=== PATIENT | male | born 1960 | race Caucasian/White ===

== ENCOUNTER → 2017-06-11 15:54 | Outpatient (CLI) | payer OTHER, SELFPAY ==
[2017-06-11 17:53] LABS: Absolute Lymphocyte Count 2.26 X10^3/ul (0.83-4.51); Absolute Neutrophil Count 2.8 X10^3/uL (2.0-7.7); Basophil# 0.05 X10^3/uL; Basophil% 0.8 % (0-1); Eosinophil# 0.36 X10^3/uL; Eosinophils% 5.8 % (0-5); Hematocrit 43.1 % (40-54); Hemoglobin 15.2 g/dl (13.0-16.5); Lymphocyte # 2.26 X10^3/ul (4.0); Lymphocyte % 36.6 % (19-41); Mean Corp Hgb Conc 35.3 g/gl (32-36); Mean Corpuscular Hgb 30.8 pg (27.0-32.0); Mean Corpuscular Volume 87.4 fL (80-94); Monocyte# 0.67 X10^3/uL; Monocyte% 10.9 % (0-10); Neutrophil # 2.81 X10^3/uL (2.7-7.7); Neutrophil % 45.6 % (47-70); Platelet Count 192 K/mm3 (150-450); RBC Distribution Width CV 12.5 % (11.6-14.6); RBC Distribution Width SD 39.4 fl (35.1-43.9); Red Blood Count 4.93 M/mm3 (4.6-6.2); White Blood Count 6.2 K/mm3 (4.4-11.0)
[2017-06-11 18:05] LABS: ALB/GLOB Ratio 1.2 RATIO (0.9-2.4); AST(SGOT) 26 U/L (15-37); Alanine Aminotransfer ALT/SGPT 41 U/L (16-61); Albumin, Serum 3.9 g/dL (3.2-5.0); Alkaline Phosphatase 71 U/L (45-117); Anion Gap 9 (5-15); BUN 23 mg/dL (7-18); BUN/Creat Ratio 19.2 RATIO (10-20); Calcium,Total 8.7 mg/dL (8.5-10.1); Chloride 103 mmol/L (98-107); Cholesterol 137 mg/dL (200); EST Glomerular Filtration Rate 66 mL/min (>60); Est Glom Filt Rate - Afr Amer 80 mL/min (>60); Globulin 3.3 g/dL (2.2-4.2); Glucose 80 mg/dL (74-106); High Density Lipoprotein 35 mg/dL; PSA,Total - Annual Screen 0.32 ng/mL (0.00-4.00); Potassium 3.7 mmol/L (3.5-5.1); Protein, Total 7.2 g/dL (6.4-8.2); Sodium Level 139 mmol/L (136-145); Triglycerides 265 mg/dL; Very Low Density Lipoprotein 53 mg/dL (5-40)
[2017-06-11 18:06] LABS: POSITIVE COUNT NO; POSITIVE DIFFERENTIAL NO; POSITIVE MORPHOLOGY NO
== END ==
PROVIDERS: Family Provider Family Medicine; PCP Family Medicine; Visit Provider Internal Medicine Rheumatology
DX: E78.1 Pure hyperglyceridemia (principal); Z12.5 Encounter for screening for malignant neoplasm of prostate; M05.70 Rheumatoid arthritis with rheumatoid factor of unspecified site without organ or systems involvement; Z79.899 Other long term (current) drug therapy; K76.0 Fatty (change of) liver, not elsewhere classified; I10 Essential (primary) hypertension
CPT/HCPCS: 36415; 80053; 80061; 84153; 85025; G0103

== ENCOUNTER → 2017-09-09 16:10 | Outpatient (CLI) | payer OTHER, SELFPAY ==
--- NOTE | 2017-09-09 16:10 | DT_ITS ---
This patient was seen during an EMR downtime September 07, 2017 - September 14, 2017. This patient may have a combination of paper and electronic documentation or all paper documentation. All documentation is viewable within the e-chart portion of [facility] for each patient visit.
[2017-09-14 12:45] LABS: Absolute Lymphocyte Count 2.09 X10^3/ul (0.83-4.51); Absolute Neutrophil Count 2.9 X10^3/uL (2.0-7.7); Basophil% 0.7 % (0-1); Eosinophils% 4.9 % (0-5); Hematocrit 43.7 % (40-54); Hemoglobin 15.4 g/dl (13.0-16.5); Lymphocyte # 2.09 X10^3/ul (4.0); Lymphocyte % 35.1 % (19-41); Mean Corp Hgb Conc 35.2 g/gl (32-36); Mean Corpuscular Hgb 31.2 pg (27.0-32.0); Mean Corpuscular Volume 88.5 fL (80-94); Mean Platelet Vol. 8.9 fl (6.2-12.0); Monocyte% 9.6 % (0-10); Neutrophil # 2.94 X10^3/uL (2.7-7.7); Neutrophil % 49.4 % (47-70); POSITIVE COUNT NO; POSITIVE DIFFERENTIAL NO; POSITIVE MORPHOLOGY NO; Platelet Count 186 K/mm3 (150-450); RBC Distribution Width CV 12.9 % (11.6-14.6); RBC Distribution Width SD 41.1 fl (35.1-43.9); Red Blood Count 4.94 M/mm3 (4.6-6.2)
[2017-09-14 13:01] LABS: BUN 24 mg/dL (7-18); BUN/Creat Ratio 19.8 RATIO (10-20); Creatinine, Serum 1.21 mg/dL (0.70-1.30); EST Glomerular Filtration Rate 65 mL/min (>60); Est Glom Filt Rate - Afr Amer 79 mL/min (>60); Glucose 88 mg/dL (74-106)
[2017-09-14 13:02] LABS: ALB/GLOB Ratio 1.1 RATIO (0.9-2.4); AST(SGOT) 30 U/L (15-37); Alanine Aminotransfer ALT/SGPT 44 U/L (16-61); Albumin, Serum 4.1 g/dL (3.2-5.0); Alkaline Phosphatase 74 U/L (45-117); Anion Gap 10 (5-15); Calcium,Total 8.7 mg/dL (8.5-10.1); Chloride 108 mmol/L (98-107); Globulin 3.6 g/dL (2.2-4.2); Potassium 3.7 mmol/L (3.5-5.1); Protein, Total 7.7 g/dL (6.4-8.2); Sodium Level 142 mmol/L (136-145)
== END ==
PROVIDERS: Family Provider Family Medicine; PCP Family Medicine; Visit Provider Internal Medicine Rheumatology
DX: M05.70 Rheumatoid arthritis with rheumatoid factor of unspecified site without organ or systems involvement (principal); Z79.899 Other long term (current) drug therapy; K76.0 Fatty (change of) liver, not elsewhere classified; I10 Essential (primary) hypertension
CPT/HCPCS: 36415; 80053; 85025

== ENCOUNTER → 2017-12-16 15:41 | Outpatient (CLI) | payer OTHER, SELFPAY ==
[2017-12-16 17:30] LABS: Absolute Lymphocyte Count 1.51 X10^3/ul (0.83-4.51); Absolute Neutrophil Count 1.9 X10^3/uL (2.0-7.7); Basophil# 0.04 X10^3/uL; Eosinophil# 0.21 X10^3/uL; Hematocrit 41.3 % (40-54); Hemoglobin 14.5 g/dl (13.0-16.5); Lymphocyte # 1.51 X10^3/ul (4.0); Lymphocyte % 35.9 % (19-41); Mean Corp Hgb Conc 35.1 g/gl (32-36); Mean Corpuscular Hgb 31.4 pg (27.0-32.0); Mean Corpuscular Volume 89.4 fL (80-94); Mean Platelet Vol. 8.7 fl (6.2-12.0); Monocyte# 0.54 X10^3/uL; Monocyte% 12.8 % (0-10); Neutrophil # 1.89 X10^3/uL (2.7-7.7); Neutrophil % 44.8 % (47-70); Platelet Count 179 K/mm3 (150-450); RBC Distribution Width CV 12.8 % (11.6-14.6); RBC Distribution Width SD 41.4 fl (35.1-43.9); Red Blood Count 4.62 M/mm3 (4.6-6.2); White Blood Count 4.2 K/mm3 (4.4-11.0)
[2017-12-16 17:31] LABS: POSITIVE COUNT NO; POSITIVE DIFFERENTIAL NO; POSITIVE MORPHOLOGY NO
[2017-12-16 18:14] LABS: ALB/GLOB Ratio 1.1 RATIO (0.9-2.4); AST(SGOT) 26 U/L (15-37); Alanine Aminotransfer ALT/SGPT 45 U/L (16-61); Albumin, Serum 3.7 g/dL (3.2-5.0); Alkaline Phosphatase 73 U/L (45-117); Anion Gap 8 (5-15); BUN 25 mg/dL (7-18); BUN/Creat Ratio 21.9 RATIO (10-20); Calcium,Total 8.8 mg/dL (8.5-10.1); Chloride 108 mmol/L (98-107); Creatinine, Serum 1.14 mg/dL (0.70-1.30); EST Glomerular Filtration Rate 70 mL/min (>60); Est Glom Filt Rate - Afr Amer 85 mL/min (>60); Globulin 3.5 g/dL (2.2-4.2); Glucose 94 mg/dL (74-106); Potassium 3.8 mmol/L (3.5-5.1); Protein, Total 7.2 g/dL (6.4-8.2); Sodium Level 143 mmol/L (136-145)
== END ==
PROVIDERS: Family Provider Family Medicine; PCP Family Medicine; Visit Provider Internal Medicine Rheumatology
DX: M05.70 Rheumatoid arthritis with rheumatoid factor of unspecified site without organ or systems involvement (principal); K76.0 Fatty (change of) liver, not elsewhere classified; I10 Essential (primary) hypertension; Z79.899 Other long term (current) drug therapy
CPT/HCPCS: 36415; 80053; 85025

== ENCOUNTER → 2018-03-01 12:53 | Outpatient (CLI) | payer OTHER, SELFPAY ==
[2018-03-01 14:23] LABS: Absolute Lymphocyte Count 1.87 X10^3/ul (0.83-4.51); Absolute Neutrophil Count 3.1 X10^3/uL (2.0-7.7); Basophil# 0.05 X10^3/uL; Basophil% 0.9 % (0-1); Eosinophils% 5.1 % (0-5); Hematocrit 44.8 % (40-54); Hemoglobin 15.8 g/dl (13.0-16.5); Lymphocyte # 1.87 X10^3/ul (4.0); Mean Corp Hgb Conc 35.3 g/gl (32-36); Mean Corpuscular Hgb 31.1 pg (27.0-32.0); Mean Corpuscular Volume 88.2 fL (80-94); Mean Platelet Vol. 9.2 fl (6.2-12.0); Monocyte# 0.52 X10^3/uL; Monocyte% 8.9 % (0-10); Neutrophil # 3.07 X10^3/uL (2.7-7.7); Neutrophil % 52.6 % (47-70); Platelet Count 194 K/mm3 (150-450); RBC Distribution Width CV 12.8 % (11.6-14.6); RBC Distribution Width SD 40.9 fl (35.1-43.9); Red Blood Count 5.08 M/mm3 (4.6-6.2); White Blood Count 5.8 K/mm3 (4.4-11.0)
[2018-03-01 14:29] LABS: POSITIVE COUNT NO; POSITIVE DIFFERENTIAL NO; POSITIVE MORPHOLOGY NO
[2018-03-01 14:46] LABS: ALB/GLOB Ratio 1.1 RATIO (0.9-2.4); AST(SGOT) 28 U/L (15-37); Alanine Aminotransfer ALT/SGPT 49 U/L (16-61); Albumin, Serum 3.8 g/dL (3.2-5.0); Alkaline Phosphatase 76 U/L (45-117); Anion Gap 11 (5-15); BUN 19 mg/dL (7-18); BUN/Creat Ratio 17.4 RATIO (10-20); Calcium,Total 8.9 mg/dL (8.5-10.1); Chloride 106 mmol/L (98-107); Creatinine, Serum 1.09 mg/dL (0.70-1.30); EST Glomerular Filtration Rate 74 mL/min (>60); Est Glom Filt Rate - Afr Amer 89 mL/min (>60); Globulin 3.5 g/dL (2.2-4.2); Glucose 88 mg/dL (74-106); Potassium 4.3 mmol/L (3.5-5.1); Protein, Total 7.3 g/dL (6.4-8.2); Sodium Level 142 mmol/L (136-145)
== END ==
PROVIDERS: Family Provider Family Medicine; PCP Family Medicine; Referring Provider Internal Medicine Rheumatology; Visit Provider Internal Medicine Rheumatology
DX: M05.70 Rheumatoid arthritis with rheumatoid factor of unspecified site without organ or systems involvement (principal); Z79.899 Other long term (current) drug therapy; K76.0 Fatty (change of) liver, not elsewhere classified; I10 Essential (primary) hypertension
CPT/HCPCS: 36415; 80053; 85025

== ENCOUNTER → 2018-04-29 16:40 | Outpatient (CLI) | payer OTHER, SELFPAY ==
[2018-04-29 17:39] LABS: Absolute Neutrophil Count 2.6 X10^3/uL (2.0-7.7); Basophil# 0.04 X10^3/uL; Basophil% 0.8 % (0-1); Eosinophil# 0.26 X10^3/uL; Eosinophils% 5.1 % (0-5); Hematocrit 43.6 % (40-54); Hemoglobin 15.5 g/dl (13.0-16.5); Lymphocyte % 29.7 % (19-41); Mean Corp Hgb Conc 35.6 g/gl (32-36); Mean Corpuscular Hgb 31.1 pg (27.0-32.0); Mean Corpuscular Volume 87.4 fL (80-94); Mean Platelet Vol. 9.3 fl (6.2-12.0); Monocyte# 0.66 X10^3/uL; Monocyte% 13.1 % (0-10); Neutrophil # 2.58 X10^3/uL (2.7-7.7); Neutrophil % 51.1 % (47-70); Platelet Count 179 K/mm3 (150-450); RBC Distribution Width CV 12.7 % (11.6-14.6); RBC Distribution Width SD 39.7 fl (35.1-43.9); Red Blood Count 4.99 M/mm3 (4.6-6.2); White Blood Count 5.1 K/mm3 (4.4-11.0)
[2018-04-29 17:44] LABS: POSITIVE COUNT NO; POSITIVE DIFFERENTIAL NO; POSITIVE MORPHOLOGY NO
[2018-04-29 19:47] LABS: ALB/GLOB Ratio 1.3 RATIO (0.9-2.4); AST(SGOT) 31 U/L (15-37); Alanine Aminotransfer ALT/SGPT 47 U/L (16-61); Albumin, Serum 4.1 g/dL (3.2-5.0); Alkaline Phosphatase 75 U/L (45-117); Anion Gap 11 (5-15); BUN 22 mg/dL (7-18); BUN/Creat Ratio 18.2 RATIO (10-20); CRP < 2.90 mg/L (0.0-3.0); Calcium,Total 9.1 mg/dL (8.5-10.1); Chloride 108 mmol/L (98-107); Creatinine, Serum 1.21 mg/dL (0.70-1.30); EST Glomerular Filtration Rate 65 mL/min (>60); Est Glom Filt Rate - Afr Amer 79 mL/min (>60); Globulin 3.2 g/dL (2.2-4.2); Glucose 88 mg/dL (74-106); Lipase 148 U/L (73-393); Potassium 3.8 mmol/L (3.5-5.1); Protein, Total 7.3 g/dL (6.4-8.2); Sodium Level 142 mmol/L (136-145)
== END ==
PROVIDERS: Family Provider Family Medicine; PCP Family Medicine; Visit Provider Family Medicine
DX: K29.50 Unspecified chronic gastritis without bleeding (principal)
CPT/HCPCS: 36415; 80053; 83690; 84443; 85025; 86140

== ENCOUNTER → 2018-05-05 08:40 | Outpatient (CLI) | payer OTHER, SELFPAY ==
--- NOTE | 2018-05-05 08:45 | US_ITS ---
STUDY: ABDOMINAL ULTRASOUND - RIGHT UPPER QUADRANT REASON FOR VISIT: Male, 58 years old. Epigastric and right upper quadrant pain x4 months TECHNIQUE: Ultrasound evaluation of the right upper quadrant was performed with real-time and static webb-scale imaging. TECHNICAL QUALITY: Adequate. COMPARISON: Prior study of 10/27/2015 FINDINGS: Liver: The liver measures 18.6 cm. There is increased echogenicity consistent with fatty infiltration. The bile ducts are within normal limits. There is hepatic color flow. The direction of portal flow is hepatopetal. There is no demonstrated mass lesion. Gallbladder: The patient is status post cholecystectomy. Common Bile Duct (C.B.D.): The common bile duct measures 6.9 mm. Pancreas: Normal size of the head, body and tail of the pancreas. There is increased echogenicity of the pancreas. There is no demonstrated pancreatic mass or cyst. Right Kidney: Normal size of the right kidney. The right kidney measures 12.4 x 5.0 x 6.4 cm. Normal renal cortex. The right cortex measures 1.8 cm. There is a right renal cyst measuring 2.8 x 2.5 x 2.1 cm. There is an ovoid mid pole cortical structure measuring 3.6 x 3.4 x 4.0 cm which may represent hypertrophic, but can versus mass. There is no right hydronephrosis. There may be mild gaseous distention of several loops of bowel in the region of the pancreas and proximal aorta. US/Abdomen Limited IMPRESSION: The liver is generous in size. There is increased echogenicity suggestive of steatosis. Status post cholecystectomy. Right renal cyst measuring 2.8 x 2.5 x 2.1 cm. There is an ovoid mid pole structure measuring 3.6 x 3.4 x 4.0 cm consistent with mass versus prominent column of retained. Three-phase renal CT or MRI is recommended for further evaluation of this finding. There may be mild gaseous distention of several loops of bowel in the region of the pancreas and proximal aorta. Electronically Signed: Faraz Ba MD at 22:33 EST , Service support ,
== END ==
PROVIDERS: Family Provider Family Medicine; PCP Family Medicine; Referring Provider Family Medicine; Visit Provider Family Medicine
DX: R10.13 Epigastric pain (principal)
CPT/HCPCS: 76705

== ENCOUNTER → 2018-05-10 14:42 | Outpatient (CLI) | payer OTHER, SELFPAY ==
[2018-05-06 14:32] VITALS: BMI 31.8
--- NOTE | 2018-05-10 14:44 | CT_ITS ---
HISTORY: ABD PAIN X 4 MONTHS, CHOLECYSTECTOMY, HERNIA REPAIR TECHNIQUE: Helically acquired images were obtained of the abdomen and pelvis following IV contrast. A radiation dose optimization technique was used for this scan. IV Contrast dosage and agent: 100 cc Isovue 300 contrast Oral contrast: None. COMPARISON: Abdominal ultrasound 05/05/2018 and CTA abdomen 10/27/2015 FINDINGS: The midline retroperitoneum and mesentery shows a bulky soft tissue mass which measures approximately 19 cm in craniocaudal dimension and 10 x 11.7 cm in AP and transverse dimensions. The mass encases the celiac and SMA arteries and encases the root of the mesentery with anterior extension to the transverse mesocolon. The transverse colon shows no definite intrinsic mass. The mass abuts the head and neck regions of the pancreas. Pancreatic invasion by tumor is not excluded. The jejunum shows apparent multifocal mural thickening without bowel dilatation or obstruction. The distal small bowel including the terminal ileum appears normal. Lower thorax: Minor dependent atelectasis, not unusual. No pleural effusion. Cholecystectomy. No biliary dilatation. Mild fatty infiltration of the liver with normal hepatic size. Normal spleen. Both kidneys are normal in position. Bilateral renal excretion of contrast without evidence of hydronephrosis or suspicious renal lesion. Bilateral benign-appearing renal cysts. Adrenal glands are not enlarged. Abdominal aorta is normal caliber. IVC is patent. No ascites. GI tract: No obstruction. As above, multifocal mural thickening of the jejunum is suggested. Diverticulosis coli. Pelvis: The urinary bladder is poorly distended. The pelvis shows no free fluid or lymphadenopathy. Fat-containing left inguinal hernia, unchanged. Central prostatic calcifications. Bones: No acute osseous abnormality. T10 level benign vertebral hemangioma. CT/Abdomen/Pelvis WITH Contrast IMPRESSION: 1. Bulky retroperitoneal and midline mesenteric mass measuring up to 19 cm in length. Possible lymphoma and CT-guided biopsy is recommended. 2. Pancreatic invasion by tumor is possible and primary pancreatic tumor is considered less likely. 3. No bowel obstruction. 4. Chronic changes, as above. Individualized dose optimization techniques were used for this CT. at 0505 Reported and signed by: Rolando Pederosn MD Electronically Signed: Rolando Pederson, at 5:03 EST Tel , Service support ,
== END ==
PROVIDERS: Family Provider Family Medicine; PCP Family Medicine; Referring Provider Surgery; Visit Provider Surgery
DX: R10.9 Unspecified abdominal pain (principal)
CPT/HCPCS: 74177; Q9967

== ENCOUNTER 2018-05-13 05:52 | Day surgery (SDC) | payer OTHER, SELFPAY ==
[2018-05-06 14:32] VITALS: BMI 31.8
[2018-05-13] VITALS (7 sets, daily range): BP systolic 110–129; BP diastolic 78–88; PULSE 58–62; RESP 16–18; TEMP 36.2–36.8; O2SAT 94–97; BMI 31.8
--- NOTE | 2018-05-13 | IMM_PTH ---
PATIENT: CAROLYN GOVEA LOC: EN U#:[id number] AGE/SX: 58/M ROOM: RE05/13/[address]: Dr. Diallo Baires MD : 1960 BED: DIS: 05/13/2018 SPEC #: [id number] RECD: 05/14/18 09:05 STATUS: OTTO LUIS #: [id number] BRITTANEY: 05/13/18 00:[address]: Diallo Baires DEPT: IMMUNOHISTOCHEMISTRY RECD BY: Berna Clark ENTERED: 05/14/18 09:05 SP TYPE: IMMUNO OTHR DR: Dr. Estrada Queen MD Tissues: A - Stomach, NOS Procedures: H Pylori (initial) PHYSICIAN & INSTITUTION [place] [id number] SPECIMEN INFORMATION: Tissue Source: A - Gastric antrum biopsy Clinical Info: Epigastric pain, RLQ pain, diarrhea Specimen Number: [id number] CPT code: 32251 METHODOLOGY: Deparaffinized sections of prefer/formalin-fixed tissue or PAP/DQ stained slides are incubated with monoclonal/polyclonal antibodies/oligonucleotide probes. Localization is made via biotin free immunoperoxidase method. Appropriate controls are performed and reacted as expected. Results on target cell population are indicated in the following table: RESULTS: ANTIBODY / CLONE RESULT Block A H Pylori (polyclonal) negative These tests were developed and their performance characteristics determined by [facility]. They may not have been cleared or approved by the U.S. Food and Drug Administration. The FDA has determined that such clearance or approval is not necessary. INTERPRETATION: A. Gastric antrum, biopsy: Negative for Helicobacter pylori organisms. SJ:jovanny 05/14/18
--- NOTE | 2018-05-13 07:00 | GASB_PTH ---
PATIENT: CAROLYN GOVEA LOC: EN U#:[id number] AGE/SX: 58/M ROOM: RE05/13/[address]: Dr. Diallo Baires MD : 1960 BED: DIS: 05/13/2018 SPEC #: [id number] RECD: 05/13/18 08:00 STATUS: OTTO LUIS #: [id number] BRITTANEY: 05/13/18 07:[address]: Diallo Baires DEPT: SURGICAL PATHOLOGY RECD BY: Kaden Santana ENTERED: 05/13/18 10:21 SP TYPE: Gastric Bx OTHR DR: Dr. Estrada Queen MD Tissues: A - Gastric mucous membrane B - Gastric mucous membrane C - Sigmoid colon biopsy Procedures: Special Stain Group II Surgery Specimen Level IV Alcian Blue/PAS (control) HEADER OPERATION: Colonoscopy, EGD ([facility] [place]) PRE-OP DIAGNOSIS: Epigastric pain, RLQ pain, diarrhea TISSUE SUBMITTED: A - Biopsy gastric antrum, H. pylori and path, B - Biopsy GE junction, C - Polyp sigmoid colon 35 cm MICROSCOPIC DIAGNOSIS A. Gastric antrum, biopsy: Mild gastritis. See microscopic description and comment. B. GE junction, biopsy: Fragments of gastroesophageal mucosa with focal intestinal metaplasia (goblet cell metaplasia), consistent with Meadows's esophagus. Focal chronic inflammation and changes consistent with gastroesophageal reflux disease. Negative for dysplasia. See comment. C. Polyp sigmoid colon, at 35 cm, biopsy: Tubular adenoma. SJ:jovanny 05/14/18 COMMENT A. The results of immunohistochemistry for Helicobacter pylori will be reported separately ([id number]). B. Alcian blue/PAS stain with matched control is used in the evaluation of the specimen. MICROSCOPIC DESCRIPTION Slides are reviewed. A. The specimen shows fragments of gastric mucosa with chronic inflammatory cell infiltrates in the lamina propria consisting of lymphocytes and plasma cells, consistent with mild chronic gastritis. GROSS DESCRIPTION A - Received in fixative is one container labeled with the patient's name and designated biopsy gastric antrum. The specimen consists of two irregular fragments of light spivey soft tissue that in aggregate measure 0.5 x 0.3 x 0.1 cm. The specimen is totally submitted in one cassette. B - Received in fixative is one container labeled with the patient's name and designated biopsy GE junction. The specimen consists of multiple irregular fragments of light spivey soft tissue that in aggregate measure 0.5 x 0.5 x 0.1 cm. The specimen is totally submitted in one cassette. C - Received in fixative is one container labeled with the patient's name and designated polyp sigmoid colon 35 cm. The specimen consists of one irregular fragment of light spivey soft tissue that measures 0.3 x 0.3 x 0.2 cm. The specimen is totally submitted in one cassette. / SJ:rg 05/13/18 TC:1 CPT: 38394 x3, 65012
--- NOTE | 2018-05-13 07:42 | OP.ENDO_ITS ---
Patient Name: Juan José Valencia Procedure Date: 05/13/2018 6:59 AM Date of : 1960 Age: 58 Procedure: Upper GI endoscopy Indications: Epigastric abdominal pain, Suspected esophageal reflux Providers: Diallo Baires MD Medicines: Monitored Anesthesia Care Patient Profile: This is a 58 year old male. Refer to note in patient chart for documentation of history and physical. Complications: No immediate complications. Estimated blood loss: Minimal. Procedure: Pre-Anesthesia Assessment: - Prior to the procedure, a History and Physical was performed, and patient medications and allergies were reviewed. The patient's tolerance of previous anesthesia was also reviewed. The risks and benefits of the procedure and the sedation options and risks were discussed with the patient. All questions were answered, and informed consent was obtained. Prior Anticoagulants: The patient has taken no previous anticoagulant or antiplatelet agents. After reviewing the risks and benefits, the patient was deemed in satisfactory condition to undergo the procedure. After obtaining informed consent, the endoscope was passed under direct vision. Throughout the procedure, the patient's blood pressure, pulse, and oxygen saturations were monitored continuously. The gastroscope was introduced through the mouth, and advanced to the fourth part of duodenum. The upper GI endoscopy was accomplished without difficulty. The patient tolerated the procedure well. Scope In: 7:12:44 AM Scope Out: 7:19:43 AM Total Procedure Duration Time 0 hours 6 minutes 59 seconds Findings: Esophagitis with no bleeding was found. Biopsies were taken with a cold forceps for histology. The stomach was normal. The examined duodenum was normal. The exam was otherwise without abnormality. Biopsies were taken with a cold forceps in the gastric antrum for Helicobacter pylori testing. Impression: - Esophagitis. Biopsied. - Normal stomach. - Normal examined duodenum. - The examination was otherwise normal. Recommendation: - Discharge patient to home. - Resume previous diet. - Continue present medications. Procedure Code(s): --- Professional --- 98072, Esophagogastroduodenoscopy, flexible, transoral; with biopsy, single or multiple Diagnosis Code(s): --- Professional --- K20.9, Esophagitis, unspecified R10.13, Epigastric pain CPT copyright 2017 [employer]. All rights reserved. The codes documented in this report are preliminary and upon surgical coder review may be revised to meet current compliance requirements. Diallo Baires MD 05/13/2018 7:41:43 AM This report has been signed electronically. Number of Addenda: 0 Note Initiated On: 05/13/2018 6:59 AM
--- NOTE | 2018-05-13 07:44 | OP.ENDO_ITS ---
Patient Name: Juan José Valencia Procedure Date: 05/13/2018 7:20 AM Date of : 1960 Age: 58 Procedure: Colonoscopy Indications: Abdominal pain in the right lower quadrant, Clinically significant diarrhea of unexplained origin Providers: Diallo Baires MD Medicines: Monitored Anesthesia Care Patient Profile: This is a 58 year old male. Refer to note in patient chart for documentation of history and physical. Last Colonoscopy: none. The patient's first colonoscopy is today. Complications: No immediate complications. Estimated blood loss: Minimal. Procedure: Pre-Anesthesia Assessment: - Prior to the procedure, a History and Physical was performed, and patient medications and allergies were reviewed. The patient's tolerance of previous anesthesia was also reviewed. The risks and benefits of the procedure and the sedation options and risks were discussed with the patient. All questions were answered, and informed consent was obtained. Prior Anticoagulants: The patient has taken no previous anticoagulant or antiplatelet agents. After reviewing the risks and benefits, the patient was deemed in satisfactory condition to undergo the procedure. After I obtained informed consent, the scope was passed under direct vision. Throughout the procedure, the patient's blood pressure, pulse, and oxygen saturations were monitored continuously. The Colonoscope was introduced through the anus and advanced to the cecum, identified by appendiceal orifice and ileocecal valve. The colonoscopy was performed without difficulty. The patient tolerated the procedure well. The quality of the bowel preparation was good. Scope In: 7:21:56 AM Scope Withdrawal Time 0 hours 11 minutes 13 seconds Scope Out: 7:36:54 AM Total Procedure Duration Time 0 hours 14 minutes 58 seconds Findings: A polyp was found in the sigmoid colon at 35 cm. The polyp was removed with a hot snare. Resection and retrieval were complete. The exam was otherwise without abnormality on direct and retroflexion views. Impression: - One polyp in the sigmoid colon, removed with a hot snare. Resected and retrieved. - The examination was otherwise normal on direct and retroflexion views. Recommendation: - Discharge patient to home. - Resume previous diet. - Continue present medications. - Physician's office will call you with pathology results and recommendations for when to repeat colonoscopy. - Repeat colonoscopy date to be determined after pending pathology results are reviewed for surveillance based on pathology results. Procedure Code(s): --- Professional --- 77612, Colonoscopy, flexible; with removal of tumor(s), polyp(s), or other lesion(s) by snare technique Diagnosis Code(s): --- Professional --- D12.5, Benign neoplasm of sigmoid colon R10.31, Right lower quadrant pain R19.7, Diarrhea, unspecified CPT copyright 2017 [employer]. All rights reserved. The codes documented in this report are preliminary and upon fish net stringer review may be revised to meet current compliance requirements. Diallo Baires MD 05/13/2018 7:43:42 AM This report has been signed electronically. Number of Addenda: 0 Note Initiated On: 05/13/2018 7:20 AM
== END 2018-05-13 08:18 | disposition home or self-care (01) ==
LOC: EN 05:53 → AC 05:53
PROVIDERS: Family Provider Family Medicine; PCP Family Medicine; Referring Provider Surgery; Visit Provider Surgery
PROC: 0DJD8ZZ Inspection of Lower Intestinal Tract, Via Natural or Artificial Opening Endoscopic (ICD-10-PCS; CPT 45378; principal; 2018-05-13 06:55)
DX: K20.9 Esophagitis, unspecified (principal); D12.5 Benign neoplasm of sigmoid colon; K29.70 Gastritis, unspecified, without bleeding; R10.13 Epigastric pain; Z87.891 Personal history of nicotine dependence; N28.89 Other specified disorders of kidney and ureter; R19.7 Diarrhea, unspecified
CPT/HCPCS: 43239; 45385; 88305; 88313; 88342; J7120

== ENCOUNTER 2018-05-19 05:56 | Day surgery (SDC) | payer OTHER, SELFPAY ==
[2018-05-06 14:32] VITALS: BMI 31.8
[2018-05-13 06:08] VITALS: BMI 31.8
[2018-05-19] VITALS (7 sets, daily range): BP systolic 117–157; BP diastolic 61–92; PULSE 59–67; RESP 16; TEMP 36.3–36.8; O2SAT 93–97; BMI 32.5
--- NOTE | 2018-05-19 | MASS_PTH ---
PATIENT: CAROLYN GOVEA LOC: [facility] [place] U#:[id number] AGE/SX: 58/M ROOM: RE05/19/[address]: Dr. Diallo Baires MD : 1960 BED: DIS: 05/19/2018 SPEC #: [id number] RECD: 05/19/18 11:01 STATUS: OTTO RECandy #: [id number] BRITTANEY: 05/19/18 00:[address]: Diallo Baires DEPT: SURGICAL PATHOLOGY RECD BY: Berna Clark ENTERED: 05/19/18 12:25 SP TYPE: Mass OTHR DR: Dr. Estrada Queen MD Tissues: A - Mesentery, NOS B - Mesentery, NOS Procedures: Frozen Section (charge) Surgery Specimen Level IV HEADER OPERATION: Laparoscopic mesenteric biopsy PRE-OP DIAGNOSIS: Mesenteric mass TISSUE SUBMITTED: A - Mesenteric biopsy for FS at 1056, B - Additional mesenteric biopsy tissue for FS at 104 FROZEN SECTION DIAGNOSIS A. Mesenteric mass, biopsy: Lymphoid tissue present. AM: 05/19/18 Case has been reviewed in consultation with Dr. Quinn who concurs with the above diagnosis. IDC:SJ MICROSCOPIC DIAGNOSIS A. Mesenteric mass, biopsy: Consistent with low-grade B-cell lymphoma, favor follicular lymphoma, grade 1. B. Mesenteric mass, additional biopsy: Consistent with low-grade B-cell lymphoma, favor follicular lymphoma, grade 1. AM: 05/24/18 COMMENT Immunohistochemistry ([id number]) shows a low-grade B-cell proliferation that is positive for CD20, CD79a, BCL-2, BCL-6 and CD10. Flow cytometry analysis reveals two clonal populations suggestive of B-cell lymphoma that are biclonal with partial CD10 expression. The complete flow cytometry analysis report is viewable in patient's EMR. Case has been reviewed in consultation with Dr. Quinn who concurs with the above diagnosis. IDC:SJ MICROSCOPIC DESCRIPTION Slides are reviewed. GROSS DESCRIPTION A - Received fresh for frozen section consultation labeled with the patient's name is a specimen designated mesenteric mass biopsy. The specimen consists of two irregular fragments of pink-spivey soft tissue that in aggregate measure 0.5 x 0.5 x 0.1 cm. Approximately half of the specimen is submitted for frozen section consultation in one block. The remainder of the specimen is combined with portions of specimen B and submitted for flow cytometry analysis. / AM:jovanny 05/19/18 B - Received fresh for OR consultation labeled with the patient's name is a specimen designated mesenteric mass biopsy. The specimen consists of multiple irregular fragments of pink-spivey soft tissue that in aggregate measure 1 x 0.5 x 0.1 cm. Television Serv[employer] touch prep smears are prepared. Portions of the tissue are submitted for flow cytometry analysis. The remainder of the tissue is submitted for permanent sections in one cassette. / AM:jovanny 05/19/18 TC:0 CPT: 29540 x2, 89730
--- NOTE | 2018-05-19 | IMM_PTH ---
PATIENT: CAROLYN GOVEA [place] [facility] [place][id number] AGE/SX: 58/M ROOM: RE05/19/[address]: Dr. Diallo Baires MD : 1960 BED: DIS: 05/19/2018 SPEC #: [id number] RECD: 05/20/18 12:26 STATUS: OTTO REQ #: [id number] BRITTANEY: 05/19/18 00:[address]: Diallo Baires DEPT: IMMUNOHISTOCHEMISTRY RECD BY: Berna Clark ENTERED: 05/20/18 12:30 SP TYPE: IMMUNO OTHR DR: Dr. Estrada Queen MD Tissues: B - Mesentery, NOS Procedures: BCL-2 (add) BCL-6 (add) CD10 (add) CD138 (add) CD15 (add) CD20 (add) CD23 (add) CD3 (add) CD30 (add) CD43 (add) CD45 (add) CD5 (add) CD79A (add) CYCLIN (add) KAPPA (add) KI-67 (add) LAMBDA (add) MUM1 (add) C-MYC (add) Pankeratin (initial) PHYSICIAN & [place] [id number] SPECIMEN INFORMATION: Tissue Source: B - Additional mesenteric biopsy tissue Clinical Info: Mesenteric mass Specimen Number: [id number] CPT code: 81412, 09899 x19 METHODOLOGY: Deparaffinized sections of prefer/formalin-fixed tissue or PAP/DQ stained slides are incubated with monoclonal/polyclonal antibodies/oligonucleotide probes. Localization is made via biotin free immunoperoxidase method. Appropriate controls are performed and reacted as expected. Results on target cell population are indicated in the following table: RESULTS: ANTIBODY / CLONE RESULT Block B AE1-3 (AE1/AE3/PCK26) negative CD3 (PS1) negative CD5 (SP10) negative CD10 (56C6) positive CD15 (MMA) negative CD20 (L26) positive CD23 (1B12) negative CD30 (George-H2) negative CD43 (L60) negative CD45 (RP2/18) positive CD79a (11E3) positive CD138 (B-A38) negative BCL-2 (bcl-2/100/D5) positive BCL-6 (RG399O/A8) positive Cyclin D1/BCL-1 (SP4) negative MUM1 (MRQ-43) negative C-MYC (Y69) negative [place] (polyclonal) negative Lambda (polyclonal) negative Ki-67 (30-9) positive, low These tests were developed and their performance characteristics determined by [facility]. They may not have been cleared or approved by the U.S. Food and Drug Administration. The FDA has determined that such clearance or approval is not necessary. INTERPRETATION: B. Additional mesenteric tissue, biopsy: Consistent with low-grade B-cell lymphoma, favor follicular lymphoma, grade I. AM:jovanny 05/24/18 Case has been reviewed in consultation with Dr. Quinn who concurs with the above diagnosis. IDC:SJ
[2018-05-19] MEDS: Cefazolin 2 GM in 0.9% Normal Saline 100 ML IV (10:25)
--- NOTE | 2018-05-19 11:20 | PCM.OPRPT ---
Problem List (1) Mesenteric mass Status: Acute Report of Operation Date of Procedure: 05/19/18 Pre-Operative Diagnosis: Mesenteric mass Post-Operative Diagnosis: Mesenteric mass Surgery/Procedure Performed:: Exploratory laparoscopy with biopsy of mesenteric mass Specimen's removed: Biopsy specimens for mesenteric mass Description of Procedure: Patient was brought back to the operating room and general anesthesia was induced. The abdomen was prepped and draped in usual sterile fashion. A 5 mm port was placed in the right lateral abdominal sidewall using Visiport technique. The abdomen was then insufflated to 15 mmHg and inspected for injuries and there were none. Next a 5 mm port was placed in the right lower quadrant under direct visualization. The mass was obvious after the mesentery was reflected superiorly. It was in the small bowel mesentery and there was likely partial obstruction of the small bowel due to this mass. A segment between 2 loops of small bowel that was obvious mesentery was selected and using cautery scissors a small piece was taken. Several small pieces were taken and then a 14-gauge needle was placed into this area and a few core biopsies were taken. These were sent fresh for frozen section. The pathologist called and said that he had enough tissue for flow cytometry as well as permanent. At this time there was a small amount of oozing which was controlled with cautery and then there was no bleeding after this. The abdomen was allowed to desufflate and both incisions were injected with local anesthesia and closed with interrupted 4-0 Monocryl sutures as well as Steri-Strips and bandages. The patient tolerated the procedure well. - Admit VTE Documentation VTE Mechan Device Prophylaxis: SCD's
--- NOTE | 2018-05-19 11:25 | DCINST_ITS ---
- Discharge Diagnoses Current Active Problems: Current Active and Chronic Problems Mesenteric mass (Acute) You will use the following diet at home:: No restrictions Your food should be the consistency of: Regular Discharge Activity: May Shower May shower in (days): 1 Call your doctor if your incision/area has: Continuous Slow Oozing, Sudden Increased Bleeding, Increased Pain/ Swelling, Increased Redness, Foul Smelling Discharge, Swelling at the incision site Call your doctor if you observe: Fever of 101 or Higher Allergies/Adverse Reactions: Allergies No Known Allergies Allergy (Verified 05/17/18 12:59) Medications to take at Discharge Adalimumab [Humira] 40 mg SQ SA 10/27/15 Hydroxychloroquine [Plaquenil] 200 mg PO BID 10/27/15 Leflunomide [Arava] 10 mg PO DAILY 10/27/15 Amlodipine [Norvasc] 5 mg PO DAILY #30 tab 10/28/15 atenolol 25 mg tablet 25 mg PO DAILY 05/06/18 chlorthalidone 25 mg tablet 12.5 mg PO DAILY tab 05/06/18 sucralfate 1 gram tablet 1 g PO QACHS #120 tab 05/06/18 Esomeprazole Mag Trihydrate [Nexium] 40 mg PO DAILY 05/12/18 Hydrocodone/Acetaminophen [[place] 5-325 Tablet] 1 each PO Q6H PRN PRN 4 Days #15 tablet 05/19/18 The following prescriptions were given: Hydrocodone/Acetaminophen [[place] 5-325 Tablet] 1 each PO Q6H PRN PRN 4 Days #15 tablet PRN Reason: Pain Primary Care Physician: Estrada Queen MD [Primary Care Provider] - Test Results: Test results from this visit will be discussed in further detail at your follow- up appointment, if applicable.
== END 2018-05-19 13:03 | disposition home or self-care (01) ==
LOC: SDC 05:57 → AC 05:58
PROVIDERS: Family Provider Family Medicine; PCP Family Medicine; Referring Provider Surgery; Visit Provider Surgery
PROC: (CPT 49320; principal; 2018-05-19 07:15)
DX: R19.00 Intra-abdominal and pelvic swelling, mass and lump, unspecified site (principal); R10.13 Epigastric pain; R10.31 Right lower quadrant pain; I10 Essential (primary) hypertension; M06.9 Rheumatoid arthritis, unspecified; K21.9 Gastro-esophageal reflux disease without esophagitis; Z79.899 Other long term (current) drug therapy; Z87.891 Personal history of nicotine dependence
CPT/HCPCS: 00840; 49321; 88305; 88331; 88341; 88342; J7120; J2405

== ENCOUNTER → 2018-05-26 16:23 | Outpatient (CLI) | payer OTHER, SELFPAY ==
[2018-05-19 07:03] VITALS: BMI 32.5
--- NOTE | 2018-05-26 | IMM_PTH ---
PATIENT: CAROLYN GOVEA LOC: [facility] U#:[id number] AGE/SX: 65/M ROOM: RE05/26/[address]: Dr. Myrtle Reyes MD : 1960 BED: DIS: SPEC #: [id number] RECD: 05/31/18 11:24 STATUS: OTTO REQ #: [id number] BRITTANEY: 05/26/18 00:[address]: Myrtle Reyes DEPT: IMMUNOHISTOCHEMISTRY RECD BY: Berna Clark ENTERED: 05/31/18 11:27 SP TYPE: IMMUNO OTHR DR: Dr. Estrada Queen MD Tissues: A - Bone marrow of iliac crest B - Bone marrow of iliac crest Procedures: BCL-2 (add) BCL-6 (add) CD10 (add) CD20 (add) CD23 (add) CD43 (add) CD45 (add) CD5 (add) CD79A (add) CYCLIN (add) KI-67 (add) MUM1 (add) CD3 (initial) PHYSICIAN & [address] [address] SPECIMEN INFORMATION: Tissue Source: Bone marrow biopsy, A - Core, B - Clot Clinical Info: Follicular B-cell lymphoma Specimen Number: [id number] A & B CPT code: 26839 x2, 80321 x16 METHODOLOGY: Deparaffinized sections of prefer/formalin-fixed tissue or PAP/DQ stained slides are incubated with monoclonal/polyclonal antibodies/oligonucleotide probes. Localization is made via biotin free immunoperoxidase method. Appropriate controls are performed and reacted as expected. Results on target cell population are indicated in the following table: RESULTS: ANTIBODY / CLONE RESULT Block A CD3 (PS1) positive CD5 (SP10) positive CD20 (L26) positive CD45 (RP2/18) positive CD79a (11E3) positive Block B CD3 (PS1) positive CD5 (SP10) positive CD20 (L26) positive CD43 (L60) positive CD45 (RP2/18) positive CD79a (11E3) positive CD10 (56C6) negative CD23 (1B12) negative BCL-2 (bcl-2/100/D5) positive BCL-6 (CI788M/A8) negative Cyclin D1/BCL-1 (SP4) negative MUM1 (MRQ-43) negative Ki-67 (30-9) positive, low These tests were developed and their performance characteristics determined by [facility]. They may not have been cleared or approved by the U.S. Food and Drug Administration. The FDA has determined that such clearance or approval is not necessary. INTERPRETATION: A. Bone marrow core biopsy: Interstitial infiltrates of small lymphocytes are noted, polytypic in nature. B. Bone marrow clot: Lymphoid aggregates are noted, polytypic in nature, favor benign. SJ:jovanny 06/02/18
--- NOTE | 2018-05-26 | BMB_PTH ---
PATIENT: CAROLYN GOVEA LOC: [facility] U#:[id number] AGE/SX: 65/M ROOM: RE05/26/[address]: Dr. Myrtle Reyes MD : 1960 BED: DIS: SPEC #: [id number] RECD: 05/26/18 15:21 STATUS: OTTO REQ #: [id number] BRITTANEY: 05/26/18 00:[address]: yMrtle Reyes DEPT: BONE MARROW RECD BY: Kaden Santana ENTERED: 05/27/18 08:10 SP TYPE: BMB YAQUELIN DR: Dr. Estrada Queen MD Tissues: A - Bone marrow, NOS B - Bone marrow, NOS C - Bone marrow, NOS Procedures: Decalcification bone/plaque Bone Marrow Aspiration Bone Marrow Core Biopsy Iron Stain Bone Marrow HEADER OPERATION: Bone marrow aspiration and biopsy PRE-OP DIAGNOSIS: Follicular B-cell lymphoma TISSUE SUBMITTED: A - Core, B - Clot, C - Smears, and send out (flow) BONE MARROW DIAGNOSIS Bone marrow core, clot and aspirate smears: Normocellular marrow with trilineage hematopoiesis. Negative for granuloma, lymphoma or malignancy. Iron - 4+, rare atypical sideroblasts are noted. Significant increase of ring sideroblasts are not seen. Flow cytometry study from [facility] shows no evidence of B or T-cell lymphoproliferative disorder. SJ:jovanny 06/02/18 COMMENT Clinical correlation and appropriate follow up are necessary. Please make reference to previous specimen ([id number]), mesenteric mass, biopsy with diagnosis of consistent with low-grade B-cell lymphoma, favor follicular lymphoma, grade 1. The bone marrow smears are reviewed along with Dr. Jaimes. This case is discussed with Dr. Reyes on 06/01/18. BONE MARROW STUDY Slides are reviewed. CBC DATE: 05/26/18 WBC 6.13; RBC 5.15; HGB 15.8; HCT 44.4; MCV 85.6; RDW 12.7; PLTS 206,000 Manual differential count: SEGS 57%; LYMPHS 35%; MONOS 3%; EOS 10%; MYELO 1%, META 2% PERIPHERAL SMEAR: Submitted. RBC: Normocytic and normochromic. WBC: Unremarkable. The WBC count is compatible to as reported above. PLTS: Adequate. BONE MARROW ASPIRATE DIFFERENTIAL: 200 cell count. Blasts % (normal 0-2): 0 Promyelocytes % (normal 1-5): 0 Myelocytes and metamyelocytes % (normal 17-41): 20 Bands and Segs % (normal 15-32): 24 Eos % (normal 1-6): 13 Basos % (normal 0-1): 0 Monocytes % (normal 0-4): 0 Erythroid Precursors % (normal 17-35): 32 Lymphocytes % (normal 7-13): 11 Plasma Cells % (normal 0-2): 0 ASPIRATE FINDINGS: Site: Not specified Spicular, Cellular M/E ratio: 1.8 (Normal 1.5-4.0) Megakaryocytes: Present and normal morphology. Erythropoiesis: Normoblastic. Granulopoiesis: Progressive. Mild increase of eosinophils are noted. Comment: Significant increase of lymphocytes is not seen. CORE BIOPSY FINDINGS: Site: Not specified Adequacy: Adequate Cellularity: 50% M/E ratio: Within normal limits. Megakaryocytes: Present and adequate in number. Bony trabeculae: Unremarkable. Granulomas: Absent. Lymphoid aggregate: Absent. Atypical infiltrate: Absent. Comment: Immunohistochemistry ([id number]) shows interstitial infiltrates of small lymphocytes, polytypic in nature. ASPIRATE CLOT FINDINGS: Site: Not specified Marrow particles: Numerous Cellularity: 50% M/E ratio: Within normal limits. Megakaryocytes: Present and adequate in number. Granulomas: Absent. Lymphoid aggregates: Present. Atypical infiltrates: Absent. Comment: Immunohistochemistry ([id number]) shows lymphoid aggregates to be polytypic in nature, favor benign. SPECIAL STAINS WITH MATCHED CONTROLS: Iron: 4+, rare atypical sideroblasts are noted. Significant increase of ring sideroblasts is not seen. Reticulin: No significant increase of reticulin fibers is noted. PAS: Highlights myeloid cells and megakaryocytes. BONE MARROW GROSS A - Received is a container labeled with the patient's name and designated bone marrow. The specimen consists of two elongated fragments of spivey bone measuring 0.3 and 0.8 cm in length and 0.1 cm in diameter. The specimen is totally submitted in one cassette after decalcification. B - Received labeled with the patient's name and designated bone marrow is a specimen that consists of blood clot and submitted for cell block preparation. C - Also received are six unstained and two peripheral stained slides. The unstained slides are submitted for appropriate staining. Also received are two green top tubes which are sent to our reference lab for flow. / SJ:rg 05/27/18 TC:5 CPT: 26056, 90943, 83351 x2, 55556 x3, 06352
== END ==
PROVIDERS: Family Provider Family Medicine; PCP Family Medicine; Referring Provider Internal Medicine Hematology & Oncology; Visit Provider Internal Medicine Hematology & Oncology
DX: C85.10 Unspecified B-cell lymphoma, unspecified site (principal)
CPT/HCPCS: 88305; 88311; 88313; 88341; 88342

== ENCOUNTER → 2018-06-01 16:43 | Outpatient (CLI) | payer OTHER, SELFPAY ==
[2018-05-19 07:03] VITALS: BMI 32.5
--- NOTE | 2018-06-01 16:47 | CT_ITS ---
STUDY: CT CHEST WITH CONTRAST REASON FOR EXAM: Male, 58 years old. Lymphoma. Prior history of smoking. RADIATION DOSAGE (If Supplied By Facility): CTDIvol = ( 12.74 ) mGy, DLP = ( 820.65 ) mGycm TECHNIQUE: Transaxial imaging was performed following intravenous administration of Isovue 300 100CC IV. Individualized dose optimization techniques were used for this CT. COMPARISON: None. FINDINGS: Moderate diffuse emphysematous change of the lungs. Bibasilar atelectasis versus scar formation. No concerning pulmonary nodule. Atelectasis versus infiltrate at the left anterior lung base with subtle air bronchogram. No pleural effusion or pneumothorax. Normal heart and pericardium. Shotty mediastinal and hilar lymph nodes. No axillary lymphadenopathy. Normal hilar regions. Normal enhanced pulmonary arteries. No central pulmonary embolism. Normal aorta arch and descending thoracic aorta. Mild multilevel degenerative change of the spine. Intraosseous hemangioma noted within the T10 vertebral body. Mild diffuse homogeneous hypoattenuation of the liver parenchyma. Confluent lymphadenopathy through the root of the mesentery. Hypoattenuated lesions within bilateral upper renal poles. CT/Chest WITH Contrast IMPRESSION: 1. Moderate diffuse emphysematous change of the lungs with no evidence of acute cardiopulmonary disease. 2. Small region of atelectasis versus consolidative infiltrate at the left anterior lung base. 3. Shotty mediastinal and hilar lymph nodes. 4. Fatty infiltration of the liver. 5. Confluent lymphadenopathy throughout the root of the mesentery, consistent with lymphoma 6. Simple appearing bilateral upper renal pole cyst. Electronically Signed: Kaden Portillo MD at 2:19 EST Tel , Service support ,
== END ==
PROVIDERS: Family Provider Family Medicine; PCP Family Medicine; Referring Provider Internal Medicine Hematology & Oncology; Visit Provider Internal Medicine Hematology & Oncology
DX: C85.90 Non-Hodgkin lymphoma, unspecified, unspecified site (principal); F17.201 Nicotine dependence, unspecified, in remission
CPT/HCPCS: 71260; Q9967

== ENCOUNTER → 2018-12-15 15:48 | Outpatient (CLI) | payer OTHER, SELFPAY ==
[2018-05-19 07:03] VITALS: BMI 32.5
[2018-12-15 17:29] LABS: Absolute Lymphocyte Count 0.45 X10^3/uL (0.83-4.51); Absolute Neutrophil Count 1.5 X10^3/uL (2.0-7.7); Basophil# 0.04 X10^3/uL; Basophil% 1.4 % (0-1); Eosinophil# 0.06 X10^3/uL; Eosinophils% 2.1 % (0-5); Hematocrit 36.4 % (40-54); Hemoglobin 12.7 g/dL (13.0-16.5); Lymphocyte # 0.45 X10^3/ul (4.0); Lymphocyte % 16.1 % (19-41); Mean Corp Hgb Conc 34.9 g/dL (32-36); Mean Corpuscular Hgb 32.7 pg (27.0-32.0); Mean Corpuscular Volume 93.8 fL (80-94); Mean Platelet Vol. 8.6 fl (6.2-12.0); Monocyte# 0.72 X10^3/uL; Monocyte% 25.7 % (0-10); NRBC Flagged by Analyzer 0 % (0-5); Neutrophil % 53.6 % (47-70); POSITIVE DIFFERENTIAL YES; Platelet Count 179 K/mm3 (150-450); RBC Distribution Width SD 47.8 fl (35.1-43.9); Red Blood Count 3.88 M/mm3 (4.6-6.2); White Blood Count 2.8 K/mm3 (4.4-11.0)
[2018-12-15 17:31] LABS: Differential Indicated SCAN CRITERIA MET
[2018-12-15 17:53] LABS: ALB/GLOB Ratio 1.2 RATIO (0.9-2.4); AST(SGOT) 26 U/L (15-37); Alanine Aminotransfer ALT/SGPT 38 U/L (16-61); Albumin, Serum 3.8 g/dL (3.2-5.0); Alkaline Phosphatase 95 U/L (45-117); Anion Gap 8 (5-15); BUN 17 mg/dL (7-18); Calcium,Total 8.6 mg/dL (8.5-10.1); Chloride 109 mmol/L (98-107); Creatinine, Serum 1.31 mg/dL (0.70-1.30); EST Glomerular Filtration Rate 59 mL/min (>60); Est Glom Filt Rate - Afr Amer 72 mL/min (>60); Globulin 3.2 g/dL (2.2-4.2); Glucose 85 mg/dL (74-106); Potassium 3.5 mmol/L (3.5-5.1); Sodium Level 143 mmol/L (136-145)
[2018-12-15 18:26] LABS: Differential Comment SCANNED; Platelet Estimate ADEQUATE (ADEQ); Red Cell Morphology NORM C+C NORMAL (NORM C&C)
[2018-12-16 10:01] LABS: Pathologist Review Reviewed
== END ==
PROVIDERS: Family Provider Family Medicine; PCP Family Medicine; Referring Provider Internal Medicine Rheumatology; Visit Provider Internal Medicine Rheumatology
DX: M05.70 Rheumatoid arthritis with rheumatoid factor of unspecified site without organ or systems involvement (principal); Z79.899 Other long term (current) drug therapy; K76.0 Fatty (change of) liver, not elsewhere classified; I10 Essential (primary) hypertension
CPT/HCPCS: 36415; 80053; 85025

== ENCOUNTER 2019-05-12 10:02 | Emergency (ER) | payer OTHER, SELFPAY ==
[2018-05-19 07:03] VITALS: BMI 32.5
[2019-05-12 10:04] VITALS: BP 153/90; PULSE 77; RESP 18; TEMP 36.6; O2SAT 94; BMI 34.2
--- NOTE | 2019-05-12 10:50 | RAD_ITS ---
STUDY: X-RAY - LEFT WRIST REASON FOR EXAM: Male, 59 years old. FELL ON ICE, PAIN TECHNIQUE: 3 view(s) of the wrist were obtained. COMPARISON: None. FINDINGS: Nondisplaced oblique fracture through the lateral aspect of the distal radial metaphysis extending into the articular surface. Normal radiocarpal articulation. Normal distal radioulnar articulation. Normal carpal bones. Normal carpal articulations. Normal carpometacarpal articulation of the thumb. Normal second through fifth carpometacarpal articulations. Normal visualized metacarpal bones. Soft tissue swelling. RAD/Wrist min 3 Views IMPRESSION: Nondisplaced vertical fracture through the lateral aspect of the distal radial metaphysis extending into the articular surface. Soft tissue swelling. Electronically Signed: Han Rosado, at 11:08 EST , Service support ,
--- NOTE | 2019-05-12 10:55 | RAD_ITS ---
STUDY: X-RAY - RIGHT FOOT CLINICAL: Male, 59 years old. FELL ON ICE, LATERAL MT PAIN TECHNIQUE: 3 view(s) of the foot. COMPARISON: None. FINDINGS: There is an enthesophyte involving the posterior superior calcaneus at the site of insertion of the Achilles tendon. Small plantar spur. Normal visualized subtalar, talonavicular, calcaneocuboid, tarsal and tarsometatarsal articulations. Normal metatarsi. Normal metatarsophalangeal joint of the great toe. Normal tibial and fibular sesamoid bones. Normal interphalangeal joint of the great toe. Normal phalanges of the great toe. Normal second through fifth metatarsophalangeal joints. Normal interphalangeal joints and phalanges of the lesser toes. Mild soft tissue swelling RAD/Foot min 3 Views IMPRESSION: Mild soft tissue swelling and calcaneal spurs. Electronically Signed: Han Rosado, at 11:58 EST , Service support ,
--- NOTE | 2019-05-12 12:04 | ED.DCSUM_ITS ---
History of Present Illness Chief Complaint: Fall Narrative: Patient presenting secondary to mechanical fall at work. Patient reports that he slipped on some ice. He suffered an injury to his left wrist, right fifth toe, and fell on his bottom hurting his back somewhat. No numbness or weakness. No head injuries. No anticoagulant use. Pain is moderate worse with palpation and movement. Review of systems otherwise negative. Past Medical History - Allergies and Home Meds Allergies/Adverse Reactions: Allergies No Known Allergies Allergy (Verified 05/12/19 10:03) Primary Care Physician: Estrada Queen MD [Primary Care Provider] - Past Medical History: - - Hypertension, renal mass Smoking Status: Former smoker - Family History Maternal Family History: Reports: Heart Disease Review of Systems All systems negative except as indicated General: Denies: Chills, Fever, Sweats Eyes: Denies: Visual changes - bilaterally, Diplopia ENT: Denies: Rhinorrhea, Sore throat Cardiovascular: Denies: Chest pain, Palpitations Respiratory: Denies: Dyspnea, Cough, Dyspnea on exertion Gastrointestinal: Denies: Abdominal pain, Nausea, Vomiting, Diarrhea, Melena, Hematochezia Genitourinary: Denies: Dysuria, Hematuria, Frequency Musculoskeletal: Reports: Extremity Pain Skin: Denies: Rash, Wounds Neurological: Denies: Headache, Weakness, Numbness Physical Exam Vital Signs/Narrative: Vital Signs Temp Pulse Resp BP Pulse Ox 05/12/19 10:04 97.9 F 77 18 153/90 H 94 Inital Vital Signs reviewed: Yes General: Well nourished, Well developed, No Acute Distress Head: Normocephalic, Atraumatic Eyes: Perrl, EOMI ENT: Moist mucous membranes, No rhinorrhea Neck: Supple, Nontender Cardiovascular: Regular rate, Regular rhythm, No murmurs Respiratory: No distress, CTA bilaterally, Chest nontender Abdomen: Soft, Nontender, Nondistended, Normal bowel sounds Back: Nontender, Normal Inspection Extremities: - - Examination of the patient's left wrist shows tenderness to palpation over the wrist joint with some predominance over the distal radius, there is some snuffbox tenderness noted. Normal range of motion of the fingers normal capillary refill. No obvious deformity. Examination of the patient's right foot shows ecchymosis of the fifth toe with limited range of motion due to pain. Normal pulses normal capillary refill normal sensation. Skin: Normal color, No rash Neurological: Alert, Oriented x3, Cranial nerves II-XII grossly intact, Normal S trength, Normal Sensation Psychological: Normal affect, Normal Mood Diagnostic/Tx/Re-eval - Medical Decision Making Patient presented for evaluation secondary to a fall. Primary and secondary surveys showed only injuries to the left wrist on the right foot. Radiographs by my personal review of the left wrist show a intra-articular distal radius fracture that is nondisplaced and nonangulated. Personal review of the patient's foot x-ray demonstrates a distal phalanx fracture of the fifth toe. Toes will be bob taped. The wrist will be splinted as noted in the procedure note. Patient will follow-up with orthopedics and workers comp. Procedures - Upper Extremity Splints Upper Extremity Splint: - - AP splint of the wrist was performed. Cotton padding was placed, fiberglass was used for splint material, and then this was held in place with an [place]osta wrap. There was good capillary refill following splint fabrication. Splint Fabrication: Fabricated Location: Left ED Disposition - Plan for ED Patient: Disposition: Home or Assisted Living Diagnosis: Left wrist fracture, Toe fracture, right Instructions: FRACTURE, Wrist [General], FRACTURE, Toe [Closed] Referrals: Tee Fox DO [STAFF PHYSICIAN] - 1 Week
[2019-05-12 12:28] VITALS: BP 142/93; PULSE 75; RESP 18
== END 2019-05-12 12:34 | disposition home or self-care (01) ==
PROVIDERS: Emergency Provider Emergency Medicine; PCP Family Medicine
DX: S52.572A Other intraarticular fracture of lower end of left radius, initial encounter for closed fracture (principal); S92.911A Unspecified fracture of right toe(s), initial encounter for closed fracture; W00.0XXA Fall on same level due to ice and snow, initial encounter; Y99.0 Civilian activity done for income or pay; I10 Essential (primary) hypertension; M77.31 Calcaneal spur, right foot; Z82.49 Family history of ischemic heart disease and other diseases of the circulatory system; Z87.891 Personal history of nicotine dependence
CPT/HCPCS: 29125; 73110; 73630; 99282

== ENCOUNTER → 2019-06-08 15:47 | Outpatient (CLI) | payer OTHER, SELFPAY ==
[2019-05-12 10:04] VITALS: BMI 34.2
[2019-06-08 17:55] LABS: Hematocrit 38.1 % (40-54); Hemoglobin 13.5 g/dL (13.0-16.5); Mean Corp Hgb Conc 35.4 g/dL (32-36); Mean Corpuscular Hgb 32.1 pg (27.0-32.0); Mean Corpuscular Volume 90.5 fL (80-94); POSITIVE COUNT YES; POSITIVE DIFFERENTIAL YES; POSITIVE MORPHOLOGY YES; Platelet Count 216 K/mm3 (150-450); RBC Distribution Width CV 13.5 % (11.6-14.6); RBC Distribution Width SD 43.7 fl (35.1-43.9); Red Blood Count 4.21 M/mm3 (4.6-6.2); White Blood Count 4.2 K/mm3 (4.4-11.0)
[2019-06-08 18:14] LABS: Differential Indicated MANUAL DIFF
[2019-06-08 18:21] LABS: ALB/GLOB Ratio 1.3 RATIO (0.9-2.4); AST(SGOT) 33 U/L (15-37); Alanine Aminotransfer ALT/SGPT 47 U/L (16-61); Alkaline Phosphatase 110 U/L (45-117); Anion Gap 5 (5-15); BUN 17 mg/dL (7-18); BUN/Creat Ratio 15.6 RATIO (10-20); Calcium,Total 8.6 mg/dL (8.5-10.1); Chloride 105 mmol/L (98-107); Creatinine, Serum 1.09 mg/dL (0.70-1.30); EST Glomerular Filtration Rate 73 mL/min (>60); Est Glom Filt Rate - Afr Amer 89 mL/min (>60); Globulin 3.1 g/dL (2.2-4.2); Glucose 96 mg/dL (74-106); Potassium 3.5 mmol/L (3.5-5.1); Protein, Total 7.1 g/dL (6.4-8.2); Sodium Level 137 mmol/L (136-145)
[2019-06-08 18:37] LABS: Basophil 1 % (0-1); Eosinophil 3 % (0-5); Lymphocyte 6 % (19-41); Monocyte 8 % (0-10); Neutrophil-Band 3 % (0-5); Neutrophil-Segmented 79 % (47-70); Total Cells Counted 100 (MANUAL DIFF)
[2019-06-08 18:39] LABS: Absolute Lymphocyte Count 0.25 X10^3/uL (0.83-4.51); Absolute Neutrophil Count 3.4 X10^3/uL (2.0-7.7); Erythrocyte Sedimentation Rate 7 mm/hr (0-20)
[2019-06-08 18:45] LABS: Microalbumin,Random Urine < 5.0 mg/L (NO RANGE EST.)
[2019-06-09 13:12] LABS: Pathologist Review Reviewed
== END ==
PROVIDERS: PCP Family Medicine; Referring Provider Internal Medicine Rheumatology; Visit Provider Internal Medicine Rheumatology
DX: C85.10 Unspecified B-cell lymphoma, unspecified site (principal); I10 Essential (primary) hypertension; M05.70 Rheumatoid arthritis with rheumatoid factor of unspecified site without organ or systems involvement; Z79.899 Other long term (current) drug therapy
CPT/HCPCS: 36415; 80053; 82043; 82570; 85025; 85652

== ENCOUNTER → 2020-03-22 14:43 | Outpatient (CLI) | payer OTHER, SELFPAY | PROVIDERS: PCP Family Medicine; Referring Provider Family Medicine; Visit Provider Family Medicine | DX: B34.9 Viral infection, unspecified (principal) ==

== ENCOUNTER 2020-03-22 14:50 | Inpatient (IN) | payer OTHER, SELFPAY ==
[2020-03-22] VITALS (8 sets, daily range): BP systolic 117–140; BP diastolic 70–104; PULSE 81–102; RESP 16–22; TEMP 37–38.8; O2SAT 91–96; BMI 33.3; BMI 33.4; BMI 32.1
--- NOTE | 2020-03-22 15:28 | EKG12_ITS ---
Test Reason : DYSRHYTHMIA Blood Pressure : / mmHG Vent. Rate : 085 BPM Atrial Rate : 085 BPM P-R Int : 164 ms QRS Dur : 096 ms QT Int : 358 ms P-R-T Axes : 038 -07 032 degrees QTc Int : 426 ms Normal sinus rhythm Normal ECG Confirmed by TULIO STOLL, CHIQUITA ([id number]), scientific editor KARUNA FARIAS ([id number]) on 03/28/2020 9:47:27 A M Referred By: TERA Confirmed By:JABARI ANTUNEZ MD
[2020-03-22] MEDS: 0.9% Normal Saline 1,000 ML 999 ML IV (15:48)
[2020-03-22] MEDS: Acetaminophen 500 MG Tablet 1000 MG PO (15:48)
--- NOTE | 2020-03-22 16:01 | ED.DCSUM_ITS ---
History of Present Illness Chief Complaint: Fever Informant: Patient Narrative: 60-year-old male presents for the evaluation of fever and cough. Patient tells me that he has a history of rheumatoid arthritis and follicular lymphoma grade 1. He is currently on Rituxan. He currently sees Dr. Reyes from oncology. Tells me that last (8 days ago) he began to develop symptoms. He notes fever, cough, headache, myalgias, diarrhea, dyspnea, loss of taste and smell, and sore throat. Tells me had a negative Covid test on Thursday. He was feeling a little bit better that day but today states that his symptoms seem to be worse. He is a former smoker. - Past Medical History (1) Rheumatoid arthritis Status: Chronic Past Medical History - Allergies and Home Meds Allergies/Adverse Reactions: Allergies No Known Allergies Allergy (Verified 05/12/19 10:03) Primary Care Physician: Estrada Queen MD [Primary Care Provider] - Prior records reviewed: Yes Surgical History: noncontributory Lives: Spouse/ Significant Other Smoking Status: Former smoker Drugs: None - Family History Maternal Family History: Reports: Heart Disease Review of Systems General: Reports: Chills, Fever, Malaise, Sweats Eyes: Denies: Visual changes - bilaterally, Diplopia ENT: Reports: Rhinorrhea, Sore throat, - - Loss of taste and smell Cardiovascular: Denies: Chest pain, Palpitations Respiratory: Reports: Dyspnea, Cough. Denies: Dyspnea on exertion Gastrointestinal: Reports: Diarrhea. Denies: Abdominal pain, Nausea, Vomiting, Melena, Hematochezia Genitourinary: Denies: Dysuria, Hematuria, Frequency Musculoskeletal: Reports: Myalgias. Denies: Back pain, Extremity Pain Skin: Denies: Rash, Wounds Neurological: Reports: Headache. Denies: Weakness, Numbness Physical Exam Vital Signs/Narrative: Vital Signs Temp Pulse Resp BP Pulse Ox 03/22/20 14:50 101.8 F H 102 H 20 H 130/104 H 93 Inital Vital Signs reviewed: Yes General: Well nourished, Well developed, No Acute Distress Head: Normocephalic, Atraumatic Eyes: Perrl, EOMI ENT: Moist mucous membranes, No rhinorrhea Neck: Supple, Nontender Cardiovascular: Regular rate, No murmurs, Tachycardia Respiratory: No distress, CTA bilaterally, Chest nontender Abdomen: Soft, Nontender, Nondistended, Normal bowel sounds Back: Nontender, Normal Inspection Extremities: Nontender, No edema Skin: Normal color, No rash Neurological: Alert, Oriented x3, Cranial nerves II-XII grossly intact, Normal Strength, Normal Sensation Psychological: Normal affect, Normal Mood Diagnostic/Tx/Re-eval - EKG Initial EKG Interpretation: Sinus Rhythm - EKG demonstrates a normal sinus rhythm at a rate of 85. No concerning features of ACS or ectopy. ED Disposition - Plan for ED Patient: Diagnosis: Hypokalemia, Rheumatoid arthritis, Follicular lymphoma grade I of intra- abdominal lymph nodes Referrals: Estrada Queen MD [Primary Care Provider] -
[2020-03-22 16:09] LABS: Hematocrit 39.2 % (40-54); Hemoglobin 13.9 g/dL (13.0-16.5); Mean Corp Hgb Conc 35.5 g/dL (32-36); Mean Corpuscular Hgb 31.9 pg (27.0-32.0); Mean Corpuscular Volume 89.9 fL (80-94); Mean Platelet Vol. 9.4 fl (6.2-12.0); POSITIVE COUNT YES; POSITIVE DIFFERENTIAL YES; POSITIVE MORPHOLOGY YES; Platelet Count 168 K/mm3 (150-450); RBC Distribution Width CV 12.2 % (11.6-14.6); RBC Distribution Width SD 40.1 fl (35.1-43.9); Red Blood Count 4.36 M/mm3 (4.6-6.2); White Blood Count 2.3 K/mm3 (4.4-11.0)
[2020-03-22 16:13] LABS: Differential Indicated MANUAL DIFF
--- NOTE | 2020-03-22 16:17 | CT_ITS ---
STUDY: CTA CHEST REASON FOR EXAM: Male, 60 years old. FEVER, COUGH, SOB, KEY, SORE THROAT, MYALGIAS, DIARRHEA. RADIATION DOSAGE (If Supplied By Facility): CTDIvol = ( 12.54 ) mGy, DLP = ( 557.90 ) mGycm TECHNIQUE: The examination was performed with the intravenous administration of IV 100 ML ISOVUE 370. Post-processing of the angiographic images was performed, with multiplanar reformation and 3D reconstruction. Individualized dose optimization techniques were used for this CT. COMPARISON: 06/01/2018. FINDINGS: The heart and pericardium are normal. The aorta is normal in caliber. No aneurysm or dissection. There is no mediastinal mass or adenopathy. 2 cm right hilar adenopathy. There is no evidence of pulmonary embolus. There is no pleural effusion. Mild centrilobular emphysema. Mild groundglass opacities and airspace disease, greatest in the lower lobes. Mild bronchiectasis, greatest in the lower lobes. 4.2 cm upper pole left renal cyst. Diffuse fatty infiltration of the liver. There is no osseous abnormality. CT/CTA Chest W/WO Contrast IMPRESSION: 1. No pulmonary embolism or arterial dissection. 2. Bilateral groundglass opacities and airspace disease consistent with pneumonia. Consider atypical/viral pneumonia. Electronically Signed: Beatriz Jones MD at 17:44 EST Tel , Service support ,
[2020-03-22 16:26] LABS: International Normalized Ratio 1.2; Prothrombin Time (Protime)PT. 15.1 SECONDS (11.7-14.9)
[2020-03-22 16:27] LABS: Partial Thromboplast Time 33.5 Seconds (24.1-36.2)
--- NOTE | 2020-03-22 16:28 | HP.PCM_ITS ---
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 The patient is a 60 y/o M w/ PMHx: Rheumatoid Arthritis, HTN, GERD, Obesity, Former Tobacco use, Follicular lymphoma grade 1 currently on Rituxan following with Dr. Reyes with most recent chemotherapy 02/2020 who presents to the [facility] ED on 03/22/20 with onset ~ 8 days prior to current presentation dyspnea, cough, low grade T, body aches, diarrhea, decreased sense of taste/smell, sore throat progressively worsening prompting eventual ED presentation. 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 . He did have COVID testing the prior Thursday which was noted to be negative. Work-up in the ED included T 101.8, heart rate 102, BP 130/104, respiratory rate 20, 93% on room air however while in the ED did witness patient decreased to 87% even at rest, CBC with WC 2.3, hemoglobin 13.9, platelet 168 with lymphopenia and neutropenia present, coags with PT 15.1, INR 1.2, PTT 33.5, CMP with sodium 135, potassium 3.0, glucose 107, lactic acid 1.1, unremarkable hepatic profile, troponin less than 0.015, rapid Covid testing negative therefore Covid PCR requested and pending, blood culture x2 pending per ED, CTA chest with no evidence of pulmonary emboli or arterial dissection with noted bilateral groundglass opacities and airspace disease consistent with Covid pneumonia, EKG with sinus rhythm with no acute evidence of ischemia. In the ED patient administered Tylenol 1000 mg p.o. x1, Eliquis 5 mg p.o. x1, Decadron 6 mg p.o. x1, potassium 40 mg p.o. x1, normal saline. 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 (Chronic) HTN (hypertension) (Chronic) GERD (gastroesophageal reflux disease) (Chronic) Former tobacco use (Chronic) Rheumatoid arthritis (Chronic) Medical History: Medical History (Last Reviewed 05/24/18 @ 10:31 by Libby Rinaldi) Right lower quadrant pain (Acute) R10.31 Epigastric pain (Acute) R10.13 Right renal mass (Acute) N28.89 Abdominal pain (Acute) R10.9 Hypertension, accelerated (Acute) I10 Rheumatoid arthritis (Chronic) M06.9 Allergies No Known Allergies Allergy (Verified 05/12/19 10:03) Home Medications: Ambulatory Orders Medication Instructions Recorded atenolol 25 mg tablet 25 mg PO DAILY 05/06/18 chlorthalidone 25 mg tablet 12.5 mg PO DAILY tab 05/06/18 Esomeprazole Mag Trihydrate 40 mg PO DAILY PRN PRN 05/12/18 [Nexium] Amlodipine [Norvasc] 5 mg PO DAILY 03/22/20 Surgical History: Surgical History (Last Updated 05/24/18 @ 10:32 by Libby Rinaldi) Hx of colonoscopy (Acute) Z98.890 History of esophagogastroduodenoscopy (EGD) (Acute) Z98.890 14/ Hx of cholecystectomy (Acute) Z90.49 2016 Hx of inguinal hernia repair (Acute) Z98.890, Z87.19 Right- 2014 history of mesenteric biopsy Surgical History: - - Cholecystectomy, right inguinal hernia repair, mesenteric biopsy. Psychiatric History: No pertinent psych hx Lives: Spouse/ Significant Other Smoking Status: Former smoker - Patient quit cigarette tobacco usage greater than 5 years prior he notes but cannot give exact timeline, prior to this a less than 1 pack/day since he been a teenager. Tobacco Use: Non-smoker Alcohol: None Drugs: None - *Family History Maternal History Items: Heart Disease Paternal History Items: Heart Disease Review of Systems Constitutional: Reports: Anorexia, Chills, Fever, Malaise, Weakness, Fatigue. Denies: Weight Change HEENT: Reports: Head Aches, Sore Throat, - - Decreased sense of taste/smell.. Denies: Sinus Congestion, Sinus Drainage Cardiovascular: Denies: Chest Pain, Chest Pressure, Chest Tightness, Light Headedness, Orthopnea, Palpitations, Syncope Respiratory: Reports: Cough, Shortness of Breath, Shortness of breath at rest, Shortness of breath upon exertion. Denies: Sputum production, Wheezing Gastrointestinal: Reports: Diarrhea. Denies: Abdominal Pain, Nausea, Vomiting Genitourinary: Denies: Dysuria Musculoskeletal: Reports: Joint Pain, Muscle pain. Denies: Joint Tenderness Skin: Denies: Rash, Wounds Neurological: Denies: Numbness, Tingling, Focal weakness Psychiatric: Denies: Anxiety, Depression, Homicidal Ideations, Suicidal Ideations Hematologic/ Lymphatic: Reports: Easy Bruising, Easy Bleeding VTE Information - Inpt Only VTE Present on Admission: No VTE Mechan Device Prophylaxis: SCD's VTE Pharm Prophylaxis ordered?: Yes Patient Problems: Active and Suspected Problems (Last Reviewed 05/24/18 @ 10:31 by Libby Rinaldi) Hypokalemia (Acute) Subjective: Seated upright in ED bed, fatigued, ill-appearing, no acute distress. Objective: Physical Examination: General: awake, alert, oriented x 3 and cooperative, seated upright in the ED bed, fatigued, ill-appearing, no acute distress. Skin: normal color, turgor, no icterus, cyanosis. HEENT: AT/NC, EOMI, PERRLA, dry MM, no carotid bruits or JVD noted. Lungs: Breath sounds, greater bases, moderate effort, no obvious evidence of distress but evident hypoxia noted on monitor with it 1.87%, no rales, ronchi or wheezing. Heart: Tachycardic with regular rhythm; no gallop, rub audible. Abdomen: soft, obese, NTTP, ND, mildly hyperactive BS, no HSM. Extremities: no cyanosis, clubbing, or edema. Neurological: patient awake, alert, oriented as noted; cognitive function intact; pupils equally reactive to light and accomodation; cranial nerves II-XII grossly normal, moving all 4 extremities, no focal deficits, strength moderately to severely global decreased secondary to acute presentation. Psychiatric: affect appears fatigued, ill-appearing, no acute evidence of depressive or anxiety feelings. - Physical Exam Vitals/I&O's: Vital Signs Temp Pulse Resp BP Pulse Ox 101.8 F H 91 22 H 130/104 H 91 03/22/20 14:50 03/22/20 16:09 03/22/20 16:09 03/22/20 14:50 03/22/20 16:09 Oxygen Delivery Method Room Air Weight: 260 lb Body Mass Index (BMI) 33.3 Laboratory Results 03/22/20 16:00: WBC 2.3 L, RBC 4.36 L, Hgb 13.9, Hct 39.2 L, MCV 89.9, MCH 31.9, MCHC 35.5, RDW Std Deviation 40.1, RDW Coeff of [place] 12.2, Plt Count 168, MPV 9.4, Neut % (Auto) Not Reportable, Absolute Neuts (auto) Pending 03/22/20 16:00: PT 15.1 H, INR 1.2, APTT 33.5 03/22/20 16:00: Sodium Pending, Potassium Pending, Chloride Pending, Carbon Dioxide Pending, Anion Gap Pending, BUN Pending, Creatinine Pending, Est GFR (MDRD) Af Amer Pending, Est GFR (MDRD) Non-Af Pending, BUN/Creatinine Ratio Pending, Glucose Pending, Calcium Pending, Total Bilirubin Pending, AST Pending, ALT Pending, Alkaline Phosphatase Pending, Troponin I Pending, Total Protein Pending, Albumin Pending 03/22/20 16:00: Lactic Acid Pending Current Medications Iopamidol (Contrast Allergy Safety Check) 0 ml IV X1 ESTEFANY Assessment/Plan All Active Problems (Last Reviewed 05/24/18 @ 10:31 by Libby Rinaldi) Hypokalemia (Acute) Hypoxia (Acute) Pneumonia due to COVID-19 virus (Acute) Mesenteric mass (Acute) Hx of colonoscopy (Acute) History of esophagogastroduodenoscopy (EGD) (Acute) Hx of cholecystectomy (Acute) Hx of inguinal hernia repair (Acute) Right lower quadrant pain (Acute) Epigastric pain (Acute) Right renal mass (Acute) Abdominal pain (Acute) Hypertension, accelerated (Acute) The patient is a 60 y/o M w/ PMHx: Rheumatoid Arthritis, HTN, GERD, Obesity, Former Tobacco use, Follicular lymphoma grade 1 currently on Rituxan following with Dr. Reyes with most recent chemotherapy 02/2020 who presents to the [facility] ED on 03/22/20 with onset ~ 8 days prior to current presentation dyspnea, cough, low grade T, body aches, diarrhea, decreased sense of taste/smell, sore throat progressively worsening prompting eventual ED presentation. 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 1. Acute Hypoxia secondary to Acute Bilateral Pneumonia secondary to Acute Viral Syndrome, COVID-19: Patient with leukopenia, lymphopenia, CTPA with bilateral groundglass opacities and airspace disease consistent with Covid pneumonia despite recent Thursday negative PCR testing and admission negative antigen testing, repeat PCR testing but regardless believe truly positive. In the emergency room patient did have decrease of his oxygenation to 87% at rest. Will admit to the COVID unit, will maintain on oxygen with wean as tolerated to room air, continue PRN albuterol, HOB, IS parameters w/ pending sputum cultures, respiratory viral panel and urine antigens, will obtain procalcitonin, D-dimer to be able to trend, CRP, CPK, Ferritin, LDH, continue supportive care including q 2 hour turning including prone given no prone bed availability and judicious hydration, closely monitor for worsening status for ARDS and multiorgan failure, consult infectious disease for consideration for remdesivir and convalescent plasma, type and screen performed and pending, will continue therapeutic Lovenox given high risk with underlying history of cancer. 2. Follicular lymphoma grade 1: Patient following with Dr. Reyes with oncology, currently on Rituxan with last dosing 02/2020, 97 phosphorus levels pending, continue to trend CBC, CMP, if necessary may consider oncology consultation. 3. Hypertension: Continue home regimen including chlorthalidone, atenolol, Norvasc with hold parameters, PRN hydralazine. 4. GERD: We will continue patient home PPI. 5. Obesity: Weight loss and lifestyle changes encouraged. 6. Rheumatoid arthritis: Not on regimen, encourage continued outpatient follow- up with rheumatology. 7. Former tobacco use: Encourage continued tobacco cessation. 8. Hypokalemia: Admission K+ 3.0, magnesium level requested, supplementation given, repeat level in AM. 9. DVT prophylaxis: SCDs, therapeutic lovenox given high risk. 10. CODE status: Patient MICHELLE is his and living will is currently in place. Discussed CODE status at length including difference between FULL code, DNR-CCA and DNR-CC status. Following discussions about the differences in these status, requested Full Code status. Advanced Care Planning Face to Face Time: 16 minutes. Inpatient E&M: 18799 Init Hosp L3 Procedures: 32476 Advncd Care Plan 30 Min
[2020-03-22 16:31] LABS: ALB/GLOB Ratio 0.8 RATIO (0.9-2.4); AST(SGOT) 33 U/L (15-37); Alanine Aminotransfer ALT/SGPT 31 U/L (16-61); Albumin, Serum 3.3 g/dL (3.2-5.0); Alkaline Phosphatase 61 U/L (45-117); Anion Gap 7 (5-15); BUN 17 mg/dL (7-18); BUN/Creat Ratio 13.8 RATIO (10-20); Calcium,Total 8.4 mg/dL (8.5-10.1); Chloride 100 mmol/L (98-107); Creatinine, Serum 1.23 mg/dL (0.70-1.30); EST Glomerular Filtration Rate 64 mL/min (>60); Est Glom Filt Rate - Afr Amer 77 mL/min (>60); Estimated Creatinine Clearance 73.33 ml/min; Glucose 107 mg/dL (74-106); Protein, Total 7.3 g/dL (6.4-8.2); Sodium Level 135 mmol/L (136-145)
[2020-03-22 16:50] LABS: Lactic Acid 1.1 mmol/L (0.4-1.9)
[2020-03-22 16:57] LABS: Lymphocyte 25 % (19-41); Metamyelocyte 5 % (0-1); Monocyte 14 % (0-10); Myelocyte 10 (0-0); Neutrophil-Band 10 % (0-5); Neutrophil-Segmented 36 % (47-70); Total Cells Counted 100 (MANUAL DIFF)
[2020-03-22 16:59] LABS: Anisocytosis 1+; Platelet Estimate ADEQUATE (ADEQ); Red Cell Morphology N CHROM NORMAL (NORM C&C)
[2020-03-22 17:00] LABS: Differential Comment SEE COMMENTS
[2020-03-22 17:01] LABS: Macrocytosis RARE; Toxic Granulation RARE
[2020-03-22] MEDS: APIXABAN 5 MG TABLET PO (17:21)
[2020-03-22] MEDS: dexAMETHasone 4 MG Tablet 6 MG PO (17:21)
[2020-03-22 17:47] LABS: Absolute Lymphocyte Count 0.57 X10^3/uL (0.83-4.51); Absolute Neutrophil Count 1.1 X10^3/uL (2.0-7.7)
--- NOTE | 2020-03-22 18:01 | PCS.PANDOC ---
PANDEMIC DOCUMENTATION INITIATED: Date: 03/22/2020 Time: 1800
[2020-03-22 19:05] LABS: BNP,B-Type NATRIURETIC PEPTIDE 19.5 pg/mL (0-100)
[2020-03-22 19:39] LABS: Ferritin 3426 ng/mL (26-388); LDH 592 U/L (87-241); Magnesium 1.7 mg/dL (1.6-2.6); Phosphorus 2.3 mg/dL (2.5-4.9)
[2020-03-22 20:00] LABS: Procalcitonin 0.54 ng/mL (0.00-0.09)
[2020-03-22] MEDS: MELATONIN 3 MG TABLET PO (21:56)
[2020-03-22] MEDS: Enoxaparin 120 MG/0.8 ML Syringe 110 MG SC (21:56)
[2020-03-23] VITALS (7 sets, daily range): BP systolic 115–130; BP diastolic 64–86; PULSE 62–80; RESP 16–18; TEMP 36.1–36.5; O2SAT 93–96
[2020-03-23 04:54] LABS: Mucous, Urine 0 SEEN /hpf (<or=2+); Red Blood Cells-Urine 0 SEEN /hpf (0-5); Squamous Epithelial Cells - UA 0 SEEN /hpf (0-5)
[2020-03-23 04:55] LABS: Color, Urine Yellow (Yellow); Glucose, Dipstick Normal (Normal); Ketone-Dipstick Negative (Negative); Leukocyte Esterase-Dipstick Negative /ul (Negative); Nitrite-Dipstick Negative (Negative); Occult Blood-Urine 25 /ul (Negative); Protein-Dipstick 30 mg/dl (Negative); Urine Bilirubin Dipstick Negative (Negative); Urine Clarity Clear (Clear); Urine Urobilinogen Normal (Normal)
[2020-03-23 05:04] LABS: Bacteria 1+ /hpf (None Seen); White Blood Cells 0-5 SEEN /hpf (0-5)
[2020-03-23 07:11] LABS: Hematocrit 39.4 % (40-54); Hemoglobin 13.4 g/dL (13.0-16.5); Mean Corpuscular Volume 91.2 fL (80-94); POSITIVE COUNT YES; POSITIVE DIFFERENTIAL YES; POSITIVE MORPHOLOGY YES; Platelet Count 173 K/mm3 (150-450); RBC Distribution Width CV 12.3 % (11.6-14.6); RBC Distribution Width SD 41.2 fl (35.1-43.9); Red Blood Count 4.32 M/mm3 (4.6-6.2); White Blood Count 2.7 K/mm3 (4.4-11.0)
[2020-03-23 07:13] LABS: Differential Indicated MANUAL DIFF
[2020-03-23 07:43] LABS: D-Dimer Quantitative (DVT/PE) 2.48 FEU/ug/m (0.27-0.49)
[2020-03-23 08:16] LABS: ALB/GLOB Ratio 0.9 RATIO (0.9-2.4); AST(SGOT) 35 U/L (15-37); Alanine Aminotransfer ALT/SGPT 32 U/L (16-61); Albumin, Serum 3.1 g/dL (3.2-5.0); Alkaline Phosphatase 58 U/L (45-117); Anion Gap 8 (5-15); BUN 17 mg/dL (7-18); Calcium,Total 8.3 mg/dL (8.5-10.1); Chloride 102 mmol/L (98-107); Creatinine, Serum 1.06 mg/dL (0.70-1.30); EST Glomerular Filtration Rate 75 mL/min (>60); Est Glom Filt Rate - Afr Amer 91 mL/min (>60); Estimated Creatinine Clearance 85.09 ml/min; Ferritin 4663 ng/mL (26-388); Globulin 3.4 g/dL (2.2-4.2); Glucose 129 mg/dL (74-106); Potassium 3.5 mmol/L (3.5-5.1); Protein, Total 6.5 g/dL (6.4-8.2); Sodium Level 138 mmol/L (136-145)
[2020-03-23 08:52] LABS: Lymphocyte 23 % (19-41); Metamyelocyte 23 % (0-1); Monocyte 18 % (0-10); Myelocyte 6 (0-0); Neutrophil-Band 1 % (0-5); Neutrophil-Segmented 27 % (47-70); Platelet Estimate ADEQUATE (ADEQ); Promyelocyte 2 (0-0); Red Cell Morphology NORM C+C NORMAL (NORM C&C); Total Cells Counted 100 (MANUAL DIFF)
[2020-03-23 08:54] LABS: Absolute Neutrophil Count 0.7 X10^3/uL (2.0-7.7)
[2020-03-23] MEDS: dexAMETHasone 10 MG/ML Vial 6 MG IV (08:57)
[2020-03-23] MEDS: amLODIPine 5 MG Tablet PO (08:58)
[2020-03-23] MEDS: Chlorthalidone 50 MG Tablet 12.5 MG PO (08:58)
[2020-03-23] MEDS: 0.9% Saline Lock 10 ML Syringe IV (08:58)
[2020-03-23] MEDS: Enoxaparin 120 MG/0.8 ML Syringe 110 MG SC (08:59)
[2020-03-23] MEDS: Atenolol 25 MG Tablet PO (08:59)
[2020-03-23] MEDS: Na Biphos/Potassium Phosphate PACKET 1 PACKET PO ×3 (09:10→16:53)
[2020-03-23 10:07] LABS: Procalcitonin 0.76 ng/mL (0.00-0.09)
[2020-03-23 12:33] LABS: Pathologist Review Reviewed
[2020-03-23 12:33] LABS: Pathologist Review Reviewed
--- NOTE | 2020-03-23 13:52 | CASEMGMT ---
RN CM called patient for initial transition planning/care coordination assessment. RN CM introduced self and role at [facility]. Patient is alert and oriented. Patient willing to participate in assessment and is able to answer all questions appropriately. Care providers, pharmacy, and demographics verified. Patient wishes to discharge home, denies need for home health at this time. Patient states he has no further needs or concerns at this time. CM to follow for discharge planning needs that may arise. PCP: Estrada Queen Specialists: Eric oncologist Preferred Pharmacy: [facility] Insurance: MMO Prescription Benefit: yes Living Will/HPOA: yes, Diane Valencia LNOK: Living Arrangements: Patient lives with in a 2 story home. Patient states he is independent and able to ambulate stairs. Transportation: self, DME/HHC: Patient denies DME or previous HHC. Patient has no preference for DME. Disposition Plan: Patient to discharge home with family support and follow-up plans in place. Angela CROREIA, RN, CM
--- NOTE | 2020-03-23 14:24 | PN_ITS ---
Patient Problems: Active and Suspected Problems (Last Reviewed 05/24/18 @ 10:31 by Libby Rinaldi) Hypokalemia (Acute) Hypoxia (Acute) Pneumonia due to COVID-19 virus (Acute) Reason for Visit: Follow-up for COVID-19 pneumonia along with follicular B-cell lymphoma with leukopenia. Lymphocytopenia Objective: Patient has history of follicular B-cell lymphoma on Rituxan followed by Dr. Murillo, most recent chemotherapy in February 2020. Also has rheumatoid arthritis. Patient has mild cough, shortness of breath mainly dyspnea on exertion, loss of taste and smell and sore throat for about 8 days. Stress test negative on past Thursday and again yesterday. CTA chest shows bilateral groundglass opacity and airspace consistent with viral pneumonia. Physical exam General: Alert, Oriented x3, Cooperative HEENT: Atraumatic, PERRLA, EOMI, Normocephalic Oral: No Gingival or Mucosal Lesions/ Ulcerations Neck: Supple, No JVD, Negative Carotid Bruits Lungs: Air entry diminished in bilateral lung bases. No crepitation/rhonchi no tachypnea or hypoxia. Cardiovascular: Regular rate, Regular Rhythm, Normal S1, Normal S2, No murmurs Abdomen: Bowel Sounds Present, Soft, Non Tender, Non-Distended : No renal angle tenderness. No suprapubic tenderness. Extremities: No edema, Capillary Refill Less than 3 Seconds Skin: No rashes, No breakdown Musculoskeletal: No Tenderness to Palpation of Joints or Extremities Neurological: Cranial nerves II-XII grossly intact, Deep Tendon Reflexes 2+/4 and Symmetrical, Neuro grossly intact Psych/Mental Status: Normal Affect, Appropriate. Vitals/I&O's: Vital Signs Temp Pulse Resp BP Pulse Ox 97.7 F L 80 16 126/82 H 95 03/23/20 08:56 03/23/20 08:56 03/23/20 08:56 03/23/20 08:56 03/23/20 08:56 Oxygen Delivery Method Room Air Weight: 250 lb 5 oz Body Mass Index (BMI) 32.1 Intake and Output for Last 24 Hours 03/21/20 03/22/20 03/23/20 23:59 23:59 23:59 Intake Total 1000 / 1000 Output Total 800 / 800 Balance 1000 / 1000 -800 / -800 Microbiology Past 72 Hours 03/23/20 04:45 Urine, Clean Catch Streptococcus pneumoniae Antigen (M - Final 03/23/20 04:45 Urine, Clean Catch Legionella Antigen - Final 03/22/20 Unknown Mucosa - Nose Respiratory Panel (PCR) - Final 03/22/20 16:00 Mucosa - Nose SARS-CoV-2 Antigen (Rapid) - Final Laboratory Results 03/22/20 16:00: WBC 2.3 L, RBC 4.36 L, Hgb 13.9, Hct 39.2 L, MCV 89.9, MCH 31.9, MCHC 35.5, RDW Std Deviation 40.1, RDW Coeff of [place] 12.2, Plt Count 168, MPV 9.4, Neut % (Auto) Not Reportable, Absolute Neuts (auto) 1.1 L, Absolute Lymphs (auto) 0.57 L, Total Counted 100, Neutrophils % (Manual) 36 L, Band Neutrophils % 10 H, Lymphocytes % (Manual) 25, Monocytes % (Manual) 14 H, Metamyelocytes % 5 H, Myelocytes % 10 H, Differential Comment SEE COMMENTS, Diff Path Review Reviewed, Toxic Granulation RARE, Platelet Estimate ADEQUATE, RBC Morphology N CHROM, Anisocytosis 1+, Macrocytosis RARE 03/22/20 16:00: PT 15.1 H, INR 1.2, APTT 33.5 03/22/20 16:00: Sodium 135 L, Potassium 3.0 L, Chloride 100, Carbon Dioxide 28.0, Anion Gap 7, BUN 17, Creatinine 1.23, Estim Creat Clear Calc 73.33, Est GFR (MDRD) Af Amer 77, Est GFR (MDRD) Non-Af 64, BUN/Creatinine Ratio 13.8, Glucose 107 H, Calcium 8.4 L, Total Bilirubin 0.50, AST 33, ALT 31, Alkaline P hosphatase 61, Troponin I < 0.015, Total Protein 7.3, Albumin 3.3, Globulin 4.0, Albumin/Globulin Ratio 0.8 L 03/22/20 16:00: Lactic Acid 1.1 03/22/20 16:00: D-Dimer Quant (PE/DVT) 6.10 H* 03/22/20 16:00: Phosphorus 2.3 L, Magnesium 1.7, Ferritin 3426 H, Lactate Dehydrogenase 592 H, C-React Prot Ext Range 222.00 H 03/22/20 16:00: B-Natriuretic Peptide 19.5 03/22/20 17:50: COVID-19 (MARGARITO) Not Detected 03/22/20 18:58: Procalcitonin 0.54 H 03/22/20 18:58: Blood Type O POSITIVE, Antibody Screen NEGATIVE 03/23/20 04:45: Urine Color Yellow, Urine Clarity Clear, Urine pH 5.0, Ur Specific [place] 1.010, Urine Protein 30 H, Urine Glucose (UA) Normal, Urine Ketones Negative, Urine Occult Blood 25 H, Urine Nitrite Negative, Urine Bilirubin Negative, Urine Urobilinogen Normal, Ur Leukocyte Esterase Negative, Urine RBC 0 SEEN, Urine WBC 0-5 SEEN, Ur Squamous Epith Cells 0 SEEN, Urine Bacteria 1+, Urine Mucus 0 SEEN 03/23/20 07:00: WBC 2.7 L, RBC 4.32 L, Hgb 13.4, Hct 39.4 L, MCV 91.2, MCH 31.0, MCHC 34.0, RDW Std Deviation 41.2, RDW Coeff of [place] 12.3, Plt Count 173, MPV 9. 0, Neut % (Auto) Not Reportable, Absolute Neuts (auto) 0.7 L, Absolute Lymphs (auto) 0.60 L, Total Counted 100, Neutrophils % (Manual) 27 L, Band Neutrophils % 1, Lymphocytes % (Manual) 23, Monocytes % (Manual) 18 H, Metamyelocytes % 23 H , Myelocytes % 6 H, Promyelocytes % 2 H, Diff Path Review Reviewed, Platelet Estimate ADEQUATE, RBC Morphology NORM C+C 03/23/20 07:00: Sodium 138, Potassium 3.5, Chloride 102, Carbon Dioxide 28.0, Anion Gap 8, BUN 17, Creatinine 1.06, Estim Creat Clear Calc 85.09, Est GFR (MDRD) Af Amer 91, Est GFR (MDRD) Non-Af 75, BUN/Creatinine Ratio 16.0, Glucose 129 H, Calcium 8.3 L, Ferritin 4663 H, Total Bilirubin 0.50, AST 35, ALT 32, Alkaline Phosphatase 58, C-React Prot Ext Range 233.00 H, Total Protein 6.5, Albumin 3.1 L, Globulin 3.4, Albumin/Globulin Ratio 0.9 03/23/20 07:00: D-Dimer Quant (PE/DVT) 2.48 H* 03/23/20 07:00: Procalcitonin 0.76 H Current Medications Acetaminophen (Acetaminophen 325 Mg Tablet) 650 mg PO Q6H PRN PRN PRN Reason: Pain Score 1-10/Temp > 100.7 F Albuterol Sulfate (Albuterol Ih 8.5 Gm (Proair) Inhaler (200 Puffs)) 4 - 8 puff INHALATION Q4H PRN PRN PRN Reason: Dyspnea, wheezing Amlodipine Besylate (Amlodipine 5 Mg Tablet) 5 mg PO DAILY PENDING SALE TO [facility] Last Admin: 03/23/20 08:58 Dose: 5 mg Documented by: Atenolol (Atenolol 25 Mg Tablet) 25 mg PO DAILY PENDING SALE TO [facility] Last Admin: 03/23/20 08:59 Dose: 25 mg Documented by: Chlorthalidone (Chlorthalidone 50 Mg Tablet) 12.5 mg PO DAILY PENDING SALE TO [facility] Last Admin: 03/23/20 08:58 Dose: 12.5 mg Documented by: Dexamethasone (Dexamethasone 4 Mg Tablet) 6 mg PO DAILY ESTEFANY Stop: 03/31/20 10:01 Enoxaparin Sodium (Enoxaparin 40 Mg/0.4 Ml Syringe) 40 mg SC Q12@1000,2200 PENDING SALE TO [facility] Guaifenesin (Guaifenesin 10 Ml Udc (200mg/10ml)) 20 ml PO Q4H PRN PRN PRN Reason: COUGH Hydralazine HCl (Hydralazine 20 Mg/Ml Vial) 10 mg IV Q4H PRN PRN PRN Reason: SBP > 160 Remdesivir 100 mg/ Sodium (Chloride) 250 mls @ 125 mls/hr IV DAILY ESTEFANY; Protocol Stop: 03/27/20 11:59 Remdesivir 200 mg/ Sodium (Chloride) 250 mls @ 125 mls/hr IV X1 ONE; Protocol Stop: 03/23/20 15:29 Melatonin (Melatonin 3 Mg Tablet) 3 mg PO QHS PRN PRN PRN Reason: INSOMNIA Last Admin: 03/22/20 21:56 Dose: 3 mg Documented by: Morphine Sulfate (Morphine 2 Mg/Ml Syringe) 2 mg IV Q3H PRN PRN PRN Reason: Pain Score 6-10 Nitroglycerin (Nitroglycerin (Inpatient Use) 0.4 Mg Tab.Subl) 0.4 mg SUBLINGUAL Q5M PRN PRN Reason: CARDIAC/CHEST PAIN Ondansetron HCl (Ondansetron 4 Mg/2 Ml Vial) 4 mg IV Q8H PRN PRN PRN Reason: NAUSEA/VOMITING Oxycodone HCl (Oxycodone 5 Mg Tablet) 5 mg PO Q4H PRN PRN PRN Reason: Pain Score 4-5 Pantoprazole Sodium (Pantoprazole Sodium 40 Mg Tablet) 40 mg PO DAILY PRN PRN PRN Reason: acid Potassium Phos/Sodium Phos (Na Biphos/Potassium Phosphate Packet) 1 packet PO TIDCM ESTEFANY Stop: 03/25/20 08:01 Last Admin: 03/23/20 12:21 Dose: 1 packet Documented by: Prochlorperazine Edisylate (Prochlorperazine 10 Mg/2 Ml Vial) 5 mg IV Q4H PRN PRN PRN Reason: Breakthrough nausea/vomiting Psyllium Hydrophilic Mucilloid (Psyllium 1 Packet) 1 packet PO DAILY PRN PRN PRN Reason: Constipation Senna/Docusate Sodium (Senna/Docusate Sodium 1 Tablet) 2 tablet PO BID PRN PRN PRN Reason: Constipation Sodium Chloride (0.9% Saline Lock 10 Ml Syringe) 10 - 40 ml IV UD PRN PRN Reason: SALINE FLUSH Last Admin: 03/23/20 08:58 Dose: 10 ml Documented by: Throat Lozenges (Benzocaine/Menthol 1 Lozenge) 1 lozenge MUCOUS MEM Q2H PRN PRN PRN Reason: SORE THROAT Medical Necessity - Tobacco Use Smoking Status: Former smoker - Patient quit cigarette tobacco usage greater than 5 years prior he notes but cannot give exact timeline, prior to this a less than 1 pack/day since he been a teenager. Tobacco Use: Non-smoker Assessment/Plan All Active Problems (Last Reviewed 05/24/18 @ 10:31 by Libby Rinaldi) Hypokalemia (Acute) Hypoxia (Acute) Pneumonia due to COVID-19 virus (Acute) Mesenteric mass (Acute) Hx of colonoscopy (Acute) History of esophagogastroduodenoscopy (EGD) (Acute) Hx of cholecystectomy (Acute) Hx of inguinal hernia repair (Acute) Right lower quadrant pain (Acute) Epigastric pain (Acute) Right renal mass (Acute) Abdominal pain (Acute) Hypertension, accelerated (Acute) The patient is a 60 y/o M history of Follicular lymphoma grade 1 currently on Rituxan following with Dr. Reyes with most recent chemotherapy 02/2020 was admitted with 8 days symptoms of mild cough, low-grade fever, body aches and diarrhea and CTA suggestive of viral/COVID-19 pneumonia 1. Acute Bilateral viral pneumonia most probably COVID-19 pneumonia with hypoxia: Patient has exposure to the COVID-19 patient. Leukopenia with lymphocytopenia. Immunocompromised host as patient is on Rituxan. Discussed with ID. Started on remdesivir. On Decadron. Inflammatory markers are elevated including D-dimer and, LDH, CRP and ferritin. Procalcitonin 0.76. On inhaler. As per H&P, pulse ox was 87% at rest in ED 2. Follicular lymphoma grade 1 Rituxan: Patient following with Dr. Reyes with oncology, currently on Rituxan with last dosing 02/2020 3. Hypertension: Continue home regimen including chlorthalidone, atenolol, Norvasc with hold parameters, PRN hydralazine. Blood pressure is normal 4. GERD: We will continue patient home PPI. 5. Obesity: Weight loss and lifestyle changes encouraged. 6. Rheumatoid arthritis: outpatient follow-up with rheumatology. 7. Former tobacco use: Encourage continued tobacco cessation. 8. Hypokalemia: Mild hypokalemia, K3.0 and hypophosphatemia: On Neutra-Phos. Magnesium level normal 1.7. Repeat K3.5. 9. DVT prophylaxis: SCDs, therapeutic lovenox given high risk. Inpatient E&M: 51057 Subs Hosp L2
--- NOTE | 2020-03-23 16:03 | CON.PCM_ITS ---
Problem List (1) Pneumonia due to COVID-19 virus Status: Acute Reason for Consult: covid Consulted by: Dr. Sarabia History of Present Illness: The patient is a 60 year old M with RA, on rituximab for follicular lymphoma, presented with sx starting 03/18 with cough, congestion, sore throat, then had change in taste/smell, dyspnea, diarrhea, aches. 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 Both tested neg for covid as outpt. His sx worsened, came to ED, covid Ag and pcr neg. Started on dex and high dose lovenox. Fever to 101.8 here. He was likely exposed to covid by coworker who was symptomatic. Full ROS performed and neg except as noted above. 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) HTN (hypertension) (Chronic) GERD (gastroesophageal reflux disease) (Chronic) Former tobacco use (Chronic) Rheumatoid arthritis (Chronic) Allergies/Adverse Reactions: Allergies No Known Allergies Allergy (Verified 05/12/19 10:03) Home Medications: Ambulatory Orders Medication Instructions Recorded atenolol 25 mg tablet 25 mg PO DAILY 05/06/18 chlorthalidone 25 mg tablet 12.5 mg PO DAILY tab 05/06/18 Esomeprazole Mag Trihydrate 40 mg PO DAILY PRN PRN 05/12/18 [Nexium] Amlodipine [Norvasc] 5 mg PO DAILY 03/22/20 - Social History SMOKING STATUS:: Former smoker Vital Signs Temp Pulse Resp BP Pulse Ox 96.9 F L 68 16 115/64 93 03/23/20 15:19 03/23/20 15:19 03/23/20 15:19 03/23/20 15:19 03/23/20 15:19 Oxygen Delivery Method Room Air Weight: 113.54 kg Body Mass Index (BMI) 32.1 Microbiology Past 72 Hours 03/23/20 04:45 Streptococcus pneumoniae Antigen (M - Final Urine, Clean Catch 03/23/20 04:45 Legionella Antigen - Final Urine, Clean Catch 03/22/20 Unknown Respiratory Panel (PCR) - Final Mucosa - Nose 03/22/20 16:00 SARS-CoV-2 Antigen (Rapid) - Final Mucosa - Nose Laboratory Tests Past 24 Hrs 03/22/20 03/22/20 03/22/20 16:00 16:00 16:00 WBC 2.3 L RBC 4.36 L Hgb 13.9 Hct 39.2 L MCV 89.9 MCH 31.9 MCHC 35.5 RDW Std Deviation 40.1 RDW Coeff of [place] 12.2 Plt Count 168 MPV 9.4 Neut % (Auto) Not Reportable Absolute Neuts (auto) 1.1 L Absolute Lymphs (auto) 0.57 L Total Counted 100 Neutrophils % (Manual) 36 L Band Neutrophils % 10 H Lymphocytes % (Manual) 25 Monocytes % (Manual) 14 H Metamyelocytes % 5 H Myelocytes % 10 H Promyelocytes % Differential Comment SEE COMMENTS Diff Path Review Reviewed Toxic Granulation RARE Platelet Estimate ADEQUATE RBC Morphology N CHROM Anisocytosis 1+ Macrocytosis RARE PT 15.1 H INR 1.2 APTT 33.5 D-Dimer Quant (PE/DVT) Sodium 135 L Potassium 3.0 L Chloride 100 Carbon Dioxide 28.0 Anion Gap 7 BUN 17 Creatinine 1.23 Estim Creat Clear Calc 73.33 Est GFR (MDRD) Af Amer 77 Est GFR (MDRD) Non-Af 64 BUN/Creatinine Ratio 13.8 Glucose 107 H Lactic Acid Calcium 8.4 L Phosphorus Magnesium Ferritin Total Bilirubin 0.50 AST 33 ALT 31 Alkaline Phosphatase 61 Lactate Dehydrogenase Troponin I < 0.015 C-React Prot Ext Range B-Natriuretic Peptide Total Protein 7.3 Albumin 3.3 Globulin 4.0 Albumin/Globulin Ratio 0.8 L Procalcitonin Urine Color Urine Clarity Urine pH Ur Specific [place] Urine Protein Urine Glucose (UA) Urine Ketones Urine Occult Blood Urine Nitrite Urine Bilirubin Urine Urobilinogen Ur Leukocyte Esterase Urine RBC Urine WBC Ur Squamous Epith Cells Urine Bacteria Urine Mucus COVID-19 ([place]ARGARITO) Blood Type Antibody Screen 03/22/20 03/22/20 03/22/20 16:00 16:00 16:00 WBC RBC Hgb Hct MCV MCH MCHC RDW Std Deviation RDW Coeff of [place] Plt Count MPV Neut % (Auto) Absolute Neuts (auto) Absolute Lymphs (auto) Total Counted Neutrophils % (Manual) Band Neutrophils % Lymphocytes % (Manual) Monocytes % (Manual) Metamyelocytes % Myelocytes % Promyelocytes % Differential Comment Diff Path Review Toxic Granulation Platelet Estimate RBC Morphology Anisocytosis Macrocytosis PT INR APTT D-Dimer Quant (PE/DVT) 6.10 H* Sodium Potassium Chloride Carbon Dioxide Anion Gap BUN Creatinine Estim Creat Clear Calc Est GFR (MDRD) Af Amer Est GFR (MDRD) Non-Af BUN/Creatinine Ratio Glucose Lactic Acid 1.1 Calcium Phosphorus 2.3 L Magnesium 1.7 Ferritin 3426 H Total Bilirubin AST ALT Alkaline Phosphatase Lactate Dehydrogenase 592 H Troponin I C-React Prot Ext Range 222.00 H B-Natriuretic Peptide Total Protein Albumin Globulin Albumin/Globulin Ratio Procalcitonin Urine Color Urine Clarity Urine pH Ur Specific [place] Urine Protein Urine Glucose (UA) Urine Ketones Urine Occult Blood Urine Nitrite Urine Bilirubin Urine Urobilinogen Ur Leukocyte Esterase Urine RBC Urine WBC Ur Squamous Epith Cells Urine Bacteria Urine Mucus COVID-19 ([place]) Blood Type Antibody Screen 03/22/20 03/22/20 03/22/20 16:00 17:50 18:58 WBC RBC Hgb Hct MCV MCH MCHC RDW Std Deviation RDW Coeff of [place] Plt Count MPV Neut % (Auto) Absolute Neuts (auto) Absolute Lymphs (auto) Total Counted Neutrophils % (Manual) Band Neutrophils % Lymphocytes % (Manual) Monocytes % (Manual) Metamyelocytes % Myelocytes % Promyelocytes % Differential Comment Diff Path Review Toxic Granulation Platelet Estimate RBC Morphology Anisocytosis Macrocytosis PT INR APTT D-Dimer Quant (PE/DVT) Sodium Potassium Chloride Carbon Dioxide Anion Gap BUN Creatinine Estim Creat Clear Calc Est GFR (MDRD) Af Amer Est GFR (MDRD) Non-Af BUN/Creatinine Ratio Glucose Lactic Acid Calcium Phosphorus Magnesium Ferritin Total Bilirubin AST ALT Alkaline Phosphatase Lactate Dehydrogenase Troponin I C-React Prot Ext Range B-Natriuretic Peptide 19.5 Total Protein Albumin Globulin Albumin/Globulin Ratio Procalcitonin 0.54 H Urine Color Urine Clarity Urine pH Ur Specific [place] Urine Protein Urine Glucose (UA) Urine Ketones Urine Occult Blood Urine Nitrite Urine Bilirubin Urine Urobilinogen Ur Leukocyte Esterase Urine RBC Urine WBC Ur Squamous Epith Cells Urine Bacteria Urine Mucus COVID-19 ([place]) Not Detected Blood Type Antibody Screen 03/22/20 03/23/20 03/23/20 18:58 04:45 07:00 WBC 2.7 L RBC 4.32 L Hgb 13.4 Hct 39.4 L MCV 91.2 MCH 31.0 MCHC 34.0 RDW Std Deviation 41.2 RDW Coeff of [place] 12.3 Plt Count 173 MPV 9.0 Neut % (Auto) Not Reportable Absolute Neuts (auto) 0.7 L Absolute Lymphs (auto) 0.60 L Total Counted 100 Neutrophils % (Manual) 27 L Band Neutrophils % 1 Lymphocytes % (Manual) 23 Monocytes % (Manual) 18 H Metamyelocytes % 23 H Myelocytes % 6 H Promyelocytes % 2 H Differential Comment Diff Path Review Reviewed Toxic Granulation Platelet Estimate ADEQUATE RBC Morphology NORM C+C Anisocytosis Macrocytosis PT INR APTT D-Dimer Quant (PE/DVT) Sodium Potassium Chloride Carbon Dioxide Anion Gap BUN Creatinine Estim Creat Clear Calc Est GFR (MDRD) Af Amer Est GFR (MDRD) Non-Af BUN/Creatinine Ratio Glucose Lactic Acid Calcium Phosphorus Magnesium Ferritin Total Bilirubin AST ALT Alkaline Phosphatase Lactate Dehydrogenase Troponin I C-React Prot Ext Range B-Natriuretic Peptide Total Protein Albumin Globulin Albumin/Globulin Ratio Procalcitonin Urine Color Yellow Urine Clarity Clear Urine pH 5.0 Ur Specific [place] 1.010 Urine Protein 30 H Urine Glucose (UA) Normal Urine Ketones Negative Urine Occult Blood 25 H Urine Nitrite Negative Urine Bilirubin Negative Urine Urobilinogen Normal Ur Leukocyte Esterase Negative Urine RBC 0 SEEN Urine WBC 0-5 SEEN Ur Squamous Epith Cells 0 SEEN Urine Bacteria 1+ Urine Mucus 0 SEEN COVID-19 ([place]) Blood Type O POSITIVE Antibody Screen NEGATIVE 03/23/20 03/23/20 03/23/20 07:00 07:00 07:00 WBC RBC Hgb Hct MCV MCH MCHC RDW Std Deviation RDW Coeff of [place] Plt Count MPV Neut % (Auto) Absolute Neuts (auto) Absolute Lymphs (auto) Total Counted Neutrophils % (Manual) Band Neutrophils % Lymphocytes % (Manual) Monocytes % (Manual) Metamyelocytes % Myelocytes % Promyelocytes % Differential Comment Diff Path Review Toxic Granulation Platelet Estimate RBC Morphology Anisocytosis Macrocytosis PT INR APTT D-Dimer Quant (PE/DVT) 2.48 H* Sodium 138 Potassium 3.5 Chloride 102 Carbon Dioxide 28.0 Anion Gap 8 BUN 17 Creatinine 1.06 Estim Creat Clear Calc 85.09 Est GFR (MDRD) Af Amer 91 Est GFR (MDRD) Non-Af 75 BUN/Creatinine Ratio 16.0 Glucose 129 H Lactic Acid Calcium 8.3 L Phosphorus Magnesium Ferritin 4663 H Total Bilirubin 0.50 AST 35 ALT 32 Alkaline Phosphatase 58 Lactate Dehydrogenase Troponin I C-React Prot Ext Range 233.00 H B-Natriuretic Peptide Total Protein 6.5 Albumin 3.1 L Globulin 3.4 Albumin/Globulin Ratio 0.9 Procalcitonin 0.76 H Urine Color Urine Clarity Urine pH Ur Specific [place] Urine Protein Urine Glucose (UA) Urine Ketones Urine Occult Blood Urine Nitrite Urine Bilirubin Urine Urobilinogen Ur Leukocyte Esterase Urine RBC Urine WBC Ur Squamous Epith Cells Urine Bacteria Urine Mucus COVID-19 ([place]) Blood Type Antibody Screen - Other Studies Radiology: [] reviewed Other Studies: [] Route of nutrition/ use of supplements: [] Nutritional Intake: [] IV Site: [] Brewer Catheter: [] - Physical Exam General: Alert, Oriented x3, Cooperative, No apparent distress HEENT: Atraumatic, PERRLA, EOMI Neck: Supple, No Nodes Lungs: Clear to auscultation, Diminished Cardiovascular: Regular rate, Regular Rhythm Abdomen: Soft, Non Tender, Non-Distended Extremities: No edema Skin: No rashes IV Site: Peripheral, without redness Musculoskeletal: No Tenderness to Palpation of Joints or Extremities Neurological: Cranial nerves II-XII grossly intact - Assessment/Plan Antibiotics: [] Assessment/Plan: [] Active and Suspected Problems (Last Reviewed 05/24/18 @ 10:31 by Libby Rinaldi) Hypokalemia (Acute) Hypoxia (Acute) Pneumonia due to COVID-19 virus (Acute) suspected covid on rituximab for lymphoma - classic covid symptoms, strong exposure history, lymphopenia, and also sick with similar sx. CT neg for PE. D-dimer was 6. Will decrease lovenox to intermediate prophylaxis. Cont dex, will change to PO. Will start remdesivir. Will follow, thank you, d/w nursing.
[2020-03-23] MEDS: Enoxaparin 40 MG/0.4 ML Syringe SC (20:25)
--- NOTE | 2020-03-23 20:30 | NURSING ---
Covid emergency in effect.
[2020-03-24] MEDS: MELATONIN 3 MG TABLET PO (00:47)
[2020-03-24 02:51] VITALS: BP 121/80; PULSE 71; RESP 18; TEMP 36.6; O2SAT 94
[2020-03-24 08:18] LABS: Hematocrit 38.6 % (40-54); Hemoglobin 13.6 g/dL (13.0-16.5); Mean Corp Hgb Conc 35.2 g/dL (32-36); Mean Corpuscular Volume 90.8 fL (80-94); Mean Platelet Vol. 9.3 fl (6.2-12.0); Platelet Count 238 K/mm3 (150-450); RBC Distribution Width CV 12.5 % (11.6-14.6); RBC Distribution Width SD 41.4 fl (35.1-43.9); Red Blood Count 4.25 M/mm3 (4.6-6.2); White Blood Count 2.5 K/mm3 (4.4-11.0)
[2020-03-24 08:49] LABS: ALB/GLOB Ratio 0.8 RATIO (0.9-2.4); AST(SGOT) 45 U/L (15-37); Alanine Aminotransfer ALT/SGPT 51 U/L (16-61); Albumin, Serum 3.1 g/dL (3.2-5.0); Alkaline Phosphatase 58 U/L (45-117); Anion Gap 8 (5-15); BUN 25 mg/dL (7-18); BUN/Creat Ratio 22.1 RATIO (10-20); Calcium,Total 8.8 mg/dL (8.5-10.1); Chloride 101 mmol/L (98-107); Creatinine, Serum 1.13 mg/dL (0.70-1.30); EST Glomerular Filtration Rate 70 mL/min (>60); Est Glom Filt Rate - Afr Amer 85 mL/min (>60); Estimated Creatinine Clearance 79.82 ml/min; Glucose 95 mg/dL (74-106); Potassium 3.2 mmol/L (3.5-5.1); Protein, Total 7.1 g/dL (6.4-8.2); Sodium Level 136 mmol/L (136-145)
--- NOTE | 2020-03-24 09:44 | PN_ITS ---
Patient Problems: Active and Suspected Problems (Last Reviewed 05/24/18 @ 10:31 by Libby Rinaldi) Hypokalemia (Acute) Hypoxia (Acute) Pneumonia due to COVID-19 virus (Acute) Reason for Visit: Follow-up for COVID-19 infection in a patient of immunocompromised host with chronic B-cell lymphoma on chemotherapy. Objective: Patient has mild cough with greenish-brown sputum. Denies shortness of breath at rest. No fever overnight. Respiratory panel negative. Physical exam General: Alert, Oriented x3, Cooperative HEENT: Atraumatic, PERRLA, EOMI, Normocephalic Oral: No Gingival or Mucosal Lesions/ Ulcerations Neck: Supple, No JVD, Negative Carotid Bruits Lungs: Air entry diminished in bilateral lung bases. No crepitation/rhonchi. No hypoxia or tachypnea Cardiovascular: Regular rate, Regular Rhythm, Normal S1, Normal S2, No murmurs Abdomen: Bowel Sounds Present, Soft, Non Tender, Non-Distended : No renal angle tenderness. No suprapubic tenderness. Extremities: No edema, Capillary Refill Less than 3 Seconds Skin: No rashes, No breakdown Musculoskeletal: No Tenderness to Palpation of Joints or Extremities Neurological: Cranial nerves II-XII grossly intact, Deep Tendon Reflexes 2+/4 and Symmetrical, Neuro grossly intact Psych/Mental Status: Normal Affect, Appropriate. Vitals/I&O's: Vital Signs Temp Pulse Resp BP Pulse Ox 97.9 F 71 18 121/80 H 94 03/24/20 02:51 03/24/20 02:51 03/24/20 02:51 03/24/20 02:51 03/24/20 02:51 Oxygen Delivery Method Room Air Weight: 249 lb 5.485 oz Body Mass Index (BMI) 32.1 Intake and Output for Last 24 Hours 03/22/20 03/23/20 03/24/20 23:59 23:59 23:59 Intake Total 1000 / 1000 1450 / 1450 200 / 200 Output Total 800 / 800 Balance 1000 / 1000 650 / 650 200 / 200 Microbiology Past 72 Hours 03/23/20 04:45 Urine, Clean Catch Streptococcus pneumoniae Antigen (M - Final 03/23/20 04:45 Urine, Clean Catch Legionella Antigen - Final 03/22/20 Unknown Mucosa - Nose Respiratory Panel (PCR) - Final 03/22/20 16:00 Mucosa - Nose SARS-CoV-2 Antigen (Rapid) - Final Laboratory Results 03/22/20 16:00: Diff Path Review Reviewed 03/23/20 07:00: Diff Path Review Reviewed 03/23/20 07:00: Procalcitonin 0.76 H 03/24/20 08:01: WBC 2.5 L, RBC 4.25 L, Hgb 13.6, Hct 38.6 L, MCV 90.8, MCH 32.0, MCHC 35.2, RDW Std Deviation 41.4, RDW Coeff of [place] 12.5, Plt Count 238, MPV 9.3 03/24/20 08:01: Sodium 136, Potassium 3.2 L, Chloride 101, Carbon Dioxide 27.0, Anion Gap 8, BUN 25 H, Creatinine 1.13, Estim Creat Clear Calc 79.82, Est GFR (MDRD) Af Amer 85, Est GFR (MDRD) Non-Af 70, BUN/Creatinine Ratio 22.1 H, Glucose 95, Calcium 8.8, Total Bilirubin 0.50, AST 45 H, ALT 51, Alkaline Phosphatase 58, Total Protein 7.1, Albumin 3.1 L, Globulin 4.0, Albumin/Globulin Ratio 0.8 L Current Medications Acetaminophen (Acetaminophen 325 Mg Tablet) 650 mg PO Q6H PRN PRN PRN Reason: Pain Score 1-10/Temp > 100.7 F Albuterol Sulfate (Albuterol Ih 8.5 Gm (Proair) Inhaler (200 Puffs)) 4 - 8 puff INHALATION Q4H PRN PRN PRN Reason: Dyspnea, wheezing Amlodipine Besylate (Amlodipine 5 Mg Tablet) 5 mg PO DAILY [facility] Last Admin: 03/23/20 08:58 Dose: 5 mg Documented by: Atenolol (Atenolol 25 Mg Tablet) 25 mg PO DAILY [facility] Last Admin: 03/23/20 08:59 Dose: 25 mg Documented by: Chlorthalidone (Chlorthalidone 50 Mg Tablet) 12.5 mg PO DAILY [facility] Last Admin: 03/23/20 08:58 Dose: 12.5 mg Documented by: Dexamethasone (Dexamethasone 4 Mg Tablet) 6 mg PO DAILY [facility] Stop: 03/31/20 10:01 Enoxaparin Sodium (Enoxaparin 40 Mg/0.4 Ml Syringe) 40 mg SC Q12@1000,2200 [facility] Last Admin: 03/23/20 20:25 Dose: 40 mg Documented by: Guaifenesin (Guaifenesin 10 Ml Udc (200mg/10ml)) 20 ml PO Q4H PRN PRN PRN Reason: COUGH Hydralazine HCl (Hydralazine 20 Mg/Ml Vial) 10 mg IV Q4H PRN PRN PRN Reason: SBP > 180 Remdesivir 100 mg/ Sodium (Chloride) 250 mls @ 125 mls/hr IV DAILY [facility]; Protocol Stop: 03/27/20 11:59 Melatonin (Melatonin 3 Mg Tablet) 3 mg PO QHS PRN PRN PRN Reason: INSOMNIA Last Admin: 03/24/20 00:47 Dose: 3 mg Documented by: Morphine Sulfate (Morphine 2 Mg/Ml Syringe) 2 mg IV Q3H PRN PRN PRN Reason: Pain Score 6-10 Nitroglycerin (Nitroglycerin (Inpatient Use) 0.4 Mg Tab.Subl) 0.4 mg SUBLINGUAL Q5M PRN PRN Reason: CARDIAC/CHEST PAIN Ondansetron HCl (Ondansetron 4 Mg/2 Ml Vial) 4 mg IV Q8H PRN PRN PRN Reason: NAUSEA/VOMITING Oxycodone HCl (Oxycodone 5 Mg Tablet) 5 mg PO Q4H PRN PRN PRN Reason: Pain Score 4-5 Pantoprazole Sodium (Pantoprazole Sodium 40 Mg Tablet) 40 mg PO DAILY PRN PRN PRN Reason: acid Potassium Phos/Sodium Phos (Na Biphos/Potassium Phosphate Packet) 1 packet PO TIDCM [facility] Stop: 03/25/20 08:01 Last Admin: 03/23/20 16:53 Dose: 1 packet Documented by: Prochlorperazine Edisylate (Prochlorperazine 10 Mg/2 Ml Vial) 5 mg IV Q4H PRN PRN PRN Reason: Breakthrough nausea/vomiting Psyllium Hydrophilic Mucilloid (Psyllium 1 Packet) 1 packet PO DAILY PRN PRN PRN Reason: Constipation Senna/Docusate Sodium (Senna/Docusate Sodium 1 Tablet) 2 tablet PO BID PRN PRN PRN Reason: Constipation Sodium Chloride (0.9% Saline Lock 10 Ml Syringe) 10 - 40 ml IV UD PRN PRN Reason: SALINE FLUSH Last Admin: 03/23/20 08:58 Dose: 10 ml Documented by: Throat Lozenges (Benzocaine/Menthol 1 Lozenge) 1 lozenge MUCOUS MEM Q2H PRN PRN PRN Reason: SORE THROAT Medical Necessity - Tobacco Use Smoking Status: Former smoker - Patient quit cigarette tobacco usage greater than 5 years prior he notes but cannot give exact timeline, prior to this a less than 1 pack/day since he been a teenager. Tobacco Use: Non-smoker Assessment/Plan All Active Problems (Last Reviewed 05/24/18 @ 10:31 by Libby Rinaldi) Hypokalemia (Acute) Hypoxia (Acute) Pneumonia due to COVID-19 virus (Acute) Mesenteric mass (Acute) Hx of colonoscopy (Acute) History of esophagogastroduodenoscopy (EGD) (Acute) Hx of cholecystectomy (Acute) Hx of inguinal hernia repair (Acute) Right lower quadrant pain (Acute) Epigastric pain (Acute) Right renal mass (Acute) Abdominal pain (Acute) Hypertension, accelerated (Acute) The patient is a 60 y/o M history of Follicular lymphoma grade 1 currently on Rituxan following with Dr. Reyes with most recent chemotherapy 02/2020 was admitted with 8 days symptoms of mild cough, low-grade fever, body aches and diarrhea and CTA suggestive of viral/COVID-19 pneumonia 1. Acute Bilateral viral pneumonia most probably COVID-19 pneumonia with hypoxia, ex-smoker: Patient has exposure to the COVID-19 patient. Leukopenia with lymphocytopenia. Immunocompromised host as patient is on Rituxan. Discussed with ID. Started on remdesivir. On Decadron. Inflammatory markers are elevated including D-dimer and, LDH, CRP and ferritin. Procalcitonin 0.76. On inhaler. As per H&P, pulse ox was 87% at rest in ED. 03/24: Patient has mild cough and shortness of breath on exertion. No tachypnea or hypoxia. CTPA individually reviewed and shows right basal groundglass opacity and pneumonic infiltrate suggestive of viral pneumonia. Has mild bronchiectasis and mild centrilobular emphysema. Patient quit smoking 6 years ago. I talked to the patient's , Ms. Diane Valencia who is also sick with similar symptoms with sore throat. Clinical updates were given. Seen by ID and he agrees with the above regimen. 2. Follicular lymphoma grade 1 Rituxan: Patient following with Dr. Reyes with oncology, currently on Rituxan with last dosing 02/2020 3. Hypertension: Continue home regimen including chlorthalidone, atenolol, Norvasc with hold parameters, PRN hydralazine. Blood pressure is normal 4. GERD: We will continue patient home PPI. 5. Obesity: Weight loss and lifestyle changes encouraged. 6. Rheumatoid arthritis: outpatient follow-up with rheumatology. 7. Former tobacco use: Encourage continued tobacco cessation. 8. Hypokalemia: Mild hypokalemia, K3.0 and hypophosphatemia: On Neutra-Phos. Magnesium level normal 1.7. Repeat K3.5. Potassium is getting replaced. 9. DVT prophylaxis: SCDs, therapeutic lovenox given high risk. Microbiology Past 72 Hours 03/23/20 04:45 Urine, Clean Catch Streptococcus pneumoniae Antigen (M - Final 03/23/20 04:45 Urine, Clean Catch Legionella Antigen - Final 03/22/20 Unknown Mucosa - Nose Respiratory Panel (PCR) - Final 03/22/20 16:00 Mucosa - Nose SARS-CoV-2 Antigen (Rapid) - Final Laboratory Results 03/24/20 08:01: WBC 2.5 L, RBC 4.25 L, Hgb 13.6, Hct 38.6 L, MCV 90.8, MCH 32.0, MCHC 35.2, RDW Std Deviation 41.4, RDW Coeff of [place] 12.5, Plt Count 238, MPV 9.3 03/24/20 08:01: Sodium 136, Potassium 3.2 L, Chloride 101, Carbon Dioxide 27.0, Anion Gap 8, BUN 25 H, Creatinine 1.13, Estim Creat Clear Calc 79.82, Est GFR (MDRD) Af Amer 85, Est GFR (MDRD) Non-Af 70, BUN/Creatinine Ratio 22.1 H, Glucose 95, Calcium 8.8, Total Bilirubin 0.50, AST 45 H, ALT 51, Alkaline Phosphatase 58, Total Protein 7.1, Albumin 3.1 L, Globulin 4.0, Albumin/Globulin Ratio 0.8 L Clinical Impression(s) from Imaging Studies Chest CTA 03/22/20 16:17 IMPRESSION: 1. No pulmonary embolism or arterial dissection. 2. Bilateral groundglass opacities and airspace disease consistent with pneumonia. Consider atypical/viral pneumonia. Inpatient E&M: 80344 Subs Hosp L2
[2020-03-24 09:45] VITALS: BP 117/80; PULSE 80; RESP 20; TEMP 36.3; O2SAT 92
[2020-03-24] MEDS: Atenolol 25 MG Tablet PO (09:53)
[2020-03-24] MEDS: Chlorthalidone 50 MG Tablet 12.5 MG PO (09:54)
[2020-03-24] MEDS: dexAMETHasone 4 MG Tablet 6 MG PO (09:56)
[2020-03-24] MEDS: Enoxaparin 40 MG/0.4 ML Syringe SC ×2 (09:56→20:20)
[2020-03-24 10:00] VITALS: O2SAT 94
[2020-03-24] MEDS: Na Biphos/Potassium Phosphate PACKET 1 PACKET PO ×3 (10:03→17:57)
[2020-03-24] MEDS: amLODIPine 5 MG Tablet PO (10:04)
[2020-03-24] MEDS: guaiFENesin 10 ML UDC (200MG/10ML) 20 ML PO (10:06)
[2020-03-24] MEDS: 0.9% Saline Lock 10 ML Syringe IV (11:53)
[2020-03-24] MEDS: Acetaminophen 325 MG Tablet 650 MG PO (12:02)
[2020-03-24 17:55] VITALS: BP 123/77; PULSE 94; RESP 18; TEMP 36.5; O2SAT 93
--- NOTE | 2020-03-24 19:54 | NURSING ---
This nurse gave care of patient to Libertad [employer] nurse for this pt approximately 1700 today.
[2020-03-24 20:11] VITALS: BP 128/82; PULSE 65; RESP 18; TEMP 36.8; O2SAT 94
[2020-03-25 02:15] VITALS: BP 114/76; PULSE 63; RESP 18; TEMP 36.2; O2SAT 94
[2020-03-25 06:55] LABS: Hematocrit 38.6 % (40-54); Hemoglobin 13.2 g/dL (13.0-16.5); Mean Corp Hgb Conc 34.2 g/dL (32-36); Mean Corpuscular Hgb 31.1 pg (27.0-32.0); Mean Corpuscular Volume 90.8 fL (80-94); Mean Platelet Vol. 9.2 fl (6.2-12.0); Platelet Count 243 K/mm3 (150-450); RBC Distribution Width CV 12.6 % (11.6-14.6); RBC Distribution Width SD 41.6 fl (35.1-43.9); Red Blood Count 4.25 M/mm3 (4.6-6.2); White Blood Count 2.3 K/mm3 (4.4-11.0)
[2020-03-25 07:18] LABS: ALB/GLOB Ratio 0.8 RATIO (0.9-2.4); AST(SGOT) 35 U/L (15-37); Alanine Aminotransfer ALT/SGPT 47 U/L (16-61); Alkaline Phosphatase 54 U/L (45-117); Anion Gap 9 (5-15); BUN 22 mg/dL (7-18); BUN/Creat Ratio 22.5 RATIO (10-20); Calcium,Total 8.7 mg/dL (8.5-10.1); Chloride 102 mmol/L (98-107); Creatinine, Serum 0.98 mg/dL (0.70-1.30); EST Glomerular Filtration Rate 83 mL/min (>60); Est Glom Filt Rate - Afr Amer 100 mL/min (>60); Estimated Creatinine Clearance 92.03 ml/min; Globulin 3.8 g/dL (2.2-4.2); Glucose 99 mg/dL (74-106); Phosphorus 3.6 mg/dL (2.5-4.9); Potassium 3.6 mmol/L (3.5-5.1); Protein, Total 6.8 g/dL (6.4-8.2); Sodium Level 136 mmol/L (136-145)
--- NOTE | 2020-03-25 07:26 | PCM.PN.HOSP ---
Patient Problems: Active and Suspected Problems (Last Reviewed 05/24/18 @ 10:31 by Libby Rinaldi) Hypokalemia (Acute) Hypoxia (Acute) Pneumonia due to COVID-19 virus (Acute) Reason for Visit: Follow-up for COVID-19 infection with pneumonia Objective: Patient has normal heart rate and blood pressure. No fever. On 2 L of oxygen. Mild cough with greenish sputum. Mild loose bowel movement Physical exam General: Alert, Oriented x3, Cooperative HEENT: Atraumatic, PERRLA, EOMI, Normocephalic Oral: No Gingival or Mucosal Lesions/ Ulcerations. Oral mucosa dry Neck: Supple, No JVD, Negative Carotid Bruits Lungs: Air entry diminished in bilateral lung bases. No crepitation/rhonchi. No tachypnea. Cardiovascular: Regular rate, Regular Rhythm, Normal S1, Normal S2, No murmurs Abdomen: Bowel Sounds Present, Soft, Non Tender, Non-Distended : No renal angle tenderness. No suprapubic tenderness. Extremities: No edema, Capillary Refill Less than 3 Seconds Skin: No rashes, No breakdown Musculoskeletal: No Tenderness to Palpation of Joints or Extremities Neurological: Cranial nerves II-XII grossly intact, Deep Tendon Reflexes 2+/4 and Symmetrical, Neuro grossly intact Psych/Mental Status: Normal Affect, Appropriate. Vitals/I&O's: Vital Signs Temp Pulse Resp BP Pulse Ox 97.2 F L 63 18 114/76 94 03/25/20 02:15 03/25/20 02:15 03/25/20 02:15 03/25/20 02:15 03/25/20 02:15 Oxygen Delivery Method Room Air Weight: 252 lb 3.341 oz Body Mass Index (BMI) 32.1 Intake and Output for Last 24 Hours 03/23/20 03/24/20 03/25/20 23:59 23:59 23:59 Intake Total 1450 / 1450 1050 / 1050 Output Total 800 / 800 Balance 650 / 650 1050 / 1050 Microbiology Past 72 Hours 03/23/20 04:45 Urine, Clean Catch Streptococcus pneumoniae Antigen (M - Final 03/23/20 04:45 Urine, Clean Catch Legionella Antigen - Final 03/22/20 Unknown Mucosa - Nose Respiratory Panel (PCR) - Final 03/22/20 16:00 Mucosa - Nose SARS-CoV-2 Antigen (Rapid) - Final Laboratory Results 03/24/20 08:01: WBC 2.5 L, RBC 4.25 L, Hgb 13.6, Hct 38.6 L, MCV 90.8, MCH 32.0, MCHC 35.2, RDW Std Deviation 41.4, RDW Coeff of [place] 12.5, Plt Count 238, MPV 9.3 03/24/20 08:01: Sodium 136, Potassium 3.2 L, Chloride 101, Carbon Dioxide 27.0, Anion Gap 8, BUN 25 H, Creatinine 1.13, Estim Creat Clear Calc 79.82, Est GFR (MDRD) Af Amer 85, Est GFR (MDRD) Non-Af 70, BUN/Creatinine Ratio 22.1 H, Glucose 95, Calcium 8.8, Total Bilirubin 0.50, AST 45 H, ALT 51, Alkaline Phosphatase 58, Total Protein 7.1, Albumin 3.1 L, Globulin 4.0, Albumin/Globulin Ratio 0.8 L 03/25/20 06:46: WBC 2.3 L, RBC 4.25 L, Hgb 13.2, Hct 38.6 L, MCV 90.8, MCH 31.1, MCHC 34.2, RDW Std Deviation 41.6, RDW Coeff of [place] 12.6, Plt Count 243, MPV 9.2 03/25/20 06:46: Sodium 136, Potassium 3.6, Chloride 102, Carbon Dioxide 25.0, Anion Gap 9, BUN 22 H, Creatinine 0.98, Estim Creat Clear Calc 92.03, Est GFR (MDRD) Af Amer 100, Est GFR (MDRD) Non-Af 83, BUN/Creatinine Ratio 22.5 H, Glucose 99, Calcium 8.7, Phosphorus 3.6, Magnesium 2.0, Total Bilirubin 0.40, AST 35, ALT 47, Alkaline Phosphatase 54, Total Protein 6.8, Albumin 3.0 L, Globulin 3.8, Albumin/Globulin Ratio 0.8 L Current Medications Acetaminophen (Acetaminophen 325 Mg Tablet) 650 mg PO Q6H PRN PRN PRN Reason: Pain Score 1-10/Temp > 100.7 F Last Admin: 03/24/20 12:02 Dose: 650 mg Documented by: Albuterol Sulfate (Albuterol Ih 8.5 Gm (Proair) Inhaler (200 Puffs)) 4 - 8 puff INHALATION Q4H PRN PRN PRN Reason: Dyspnea, wheezing Amlodipine Besylate (Amlodipine 5 Mg Tablet) 5 mg PO DAILY [facility] Last Admin: 03/24/20 10:04 Dose: 5 mg Documented by: Atenolol (Atenolol 25 Mg Tablet) 25 mg PO DAILY [facility] Last Admin: 03/24/20 09:53 Dose: 25 mg Documented by: Chlorthalidone (Chlorthalidone 50 Mg Tablet) 12.5 mg PO DAILY [facility] Last Admin: 03/24/20 09:54 Dose: 12.5 mg Documented by: Dexamethasone (Dexamethasone 4 Mg Tablet) 6 mg PO DAILY [facility] Stop: 03/31/20 10:01 Last Admin: 03/24/20 09:56 Dose: 6 mg Documented by: Enoxaparin Sodium (Enoxaparin 40 Mg/0.4 Ml Syringe) 40 mg SC Q12@1000,2200 [facility] Last Admin: 03/24/20 20:20 Dose: 40 mg Documented by: Guaifenesin (Guaifenesin 10 Ml Udc (200mg/10ml)) 20 ml PO Q4H PRN PRN PRN Reason: COUGH Last Admin: 03/24/20 10:06 Dose: 20 ml Documented by: Hydralazine HCl (Hydralazine 20 Mg/Ml Vial) 10 mg IV Q4H PRN PRN PRN Reason: SBP > 180 Remdesivir 100 mg/ Sodium (Chloride) 250 mls @ 125 mls/hr IV DAILY [facility]; Protocol Stop: 03/27/20 11:59 Last Infusion: 03/24/20 14:00 Dose: Infused Documented by: Melatonin (Melatonin 3 Mg Tablet) 3 mg PO QHS PRN PRN PRN Reason: INSOMNIA Last Admin: 03/24/20 00:47 Dose: 3 mg Documented by: Morphine Sulfate (Morphine 2 Mg/Ml Syringe) 2 mg IV Q3H PRN PRN PRN Reason: Pain Score 6-10 Nitroglycerin (Nitroglycerin (Inpatient Use) 0.4 Mg Tab.Subl) 0.4 mg SUBLINGUAL Q5M PRN PRN Reason: CARDIAC/CHEST PAIN Ondansetron HCl (Ondansetron 4 Mg/2 Ml Vial) 4 mg IV Q8H PRN PRN PRN Reason: NAUSEA/VOMITING Oxycodone HCl (Oxycodone 5 Mg Tablet) 5 mg PO Q4H PRN PRN PRN Reason: Pain Score 4-5 Pantoprazole Sodium (Pantoprazole Sodium 40 Mg Tablet) 40 mg PO DAILY PRN PRN PRN Reason: acid Potassium Chloride (Potassium Chloride 20 Meq Tablet) 40 meq PO DAILY [facility] Last Admin: 03/24/20 14:37 Dose: 40 meq Documented by: Potassium Phos/Sodium Phos (Na Biphos/Potassium Phosphate Packet) 1 packet PO TIDCM [facility] Stop: 03/25/20 08:01 Last Admin: 03/24/20 17:57 Dose: 1 packet Documented by: Prochlorperazine Edisylate (Prochlorperazine 10 Mg/2 Ml Vial) 5 mg IV Q4H PRN PRN PRN Reason: Breakthrough nausea/vomiting Psyllium Hydrophilic Mucilloid (Psyllium 1 Packet) 1 packet PO DAILY PRN PRN PRN Reason: Constipation Senna/Docusate Sodium (Senna/Docusate Sodium 1 Tablet) 2 tablet PO BID PRN PRN PRN Reason: Constipation Sodium Chloride (0.9% Saline Lock 10 Ml Syringe) 10 - 40 ml IV UD PRN PRN Reason: SALINE FLUSH Last Admin: 03/24/20 11:53 Dose: 10 ml Documented by: Throat Lozenges (Benzocaine/Menthol 1 Lozenge) 1 lozenge MUCOUS MEM Q2H PRN PRN PRN Reason: SORE THROAT Medical Necessity - Tobacco Use Smoking Status: Former smoker - Patient quit cigarette tobacco usage greater than 5 years prior he notes but cannot give exact timeline, prior to this a less than 1 pack/day since he been a teenager. Tobacco Use: Non-smoker Assessment/Plan All Active Problems (Last Reviewed 05/24/18 @ 10:31 by Libby Rinaldi) Hypokalemia (Acute) Hypoxia (Acute) Pneumonia due to COVID-19 virus (Acute) Mesenteric mass (Acute) Hx of colonoscopy (Acute) History of esophagogastroduodenoscopy (EGD) (Acute) Hx of cholecystectomy (Acute) Hx of inguinal hernia repair (Acute) Right lower quadrant pain (Acute) Epigastric pain (Acute) Right renal mass (Acute) Abdominal pain (Acute) Hypertension, accelerated (Acute) The patient is a 60 y/o M history of Follicular lymphoma grade 1 currently on Rituxan following with Dr. Reyes with most recent chemotherapy 02/2020 was admitted with 8 days symptoms of mild cough, low-grade fever, body aches and diarrhea and CTA suggestive of viral/COVID-19 pneumonia 1. Acute Bilateral viral pneumonia most probably COVID-19 pneumonia with hypoxia, ex-smoker: Patient has exposure to the COVID-19 patient. Leukopenia with lymphocytopenia. Immunocompromised host as patient is on Rituxan. Discussed with ID. Started on remdesivir. On Decadron. Inflammatory markers are elevated including D-dimer and, LDH, CRP and ferritin. Procalcitonin 0.76. On inhaler. As per H&P, pulse ox was 87% at rest in ED. 03/24: Patient has mild cough and shortness of breath on exertion. No tachypnea or hypoxia. CTPA individually reviewed and shows right basal groundglass opacity and pneumonic infiltrate suggestive of viral pneumonia. Has mild bronchiectasis and mild centrilobular emphysema. Patient quit smoking 6 years ago. I talked to the patient's , Ms. Diane Valencia who is also sick with similar symptoms with sore throat. Clinical updates were given. Seen by ID and he agrees with the above regimen. 03/25: Clinical update was given to patient's Ms. Diane Valencia. On third day of IV remdesivir. On further discussion, his baseline WBC count is 2.53 and ANC 1.09 in the last mid-February 2020 done in [facility]. 2. Follicular lymphoma grade 1 Rituxan: Patient following with Dr. Reyes with oncology, currently on Rituxan with last dosing 02/2020 3. Hypertension: Continue home regimen including chlorthalidone, atenolol, Norvasc with hold parameters, PRN hydralazine. Blood pressure is normal 4. GERD: We will continue patient home PPI. 5. Obesity: Weight loss and lifestyle changes encouraged. 6. Rheumatoid arthritis: outpatient follow-up with rheumatology. 7. Former tobacco use: Encourage continued tobacco cessation. 8. Hypokalemia: Mild hypokalemia, K3.0 and hypophosphatemia: On Neutra-Phos. Magnesium level normal 1.7. Repeat K3.5. Potassium is getting replaced. 9. DVT prophylaxis: SCDs, therapeutic lovenox given high risk. Plan: Discharge tomorrow after consultation with ID and dose of remdesivir. Patient is immunocompromised host with history of B-cell lymphoma. Microbiology Past 72 Hours 03/22/20 16:00 Blood Culture (Wb) - Right Forearm Blood Culture - Preliminary No growth in 48 hours. 03/22/20 15:50 Blood Culture (Wb) - Anticubital Left Blood Culture - Preliminary No growth in 48 hours. 03/23/20 04:45 Urine, Clean Catch Streptococcus pneumoniae Antigen (M - Final 03/23/20 04:45 Urine, Clean Catch Legionella Antigen - Final 03/22/20 Unknown Mucosa - Nose Respiratory Panel (PCR) - Final 03/22/20 16:00 Mucosa - Nose SARS-CoV-2 Antigen (Rapid) - Final Laboratory Results 03/25/20 06:46: WBC 2.3 L, RBC 4.25 L, Hgb 13.2, Hct 38.6 L, MCV 90.8, MCH 31.1, MCHC 34.2, RDW Std Deviation 41.6, RDW Coeff of [place] 12.6, Plt Count 243, MPV 9.2 03/25/20 06:46: Sodium 136, Potassium 3.6, Chloride 102, Carbon Dioxide 25.0, Anion Gap 9, BUN 22 H, Creatinine 0.98, Estim Creat Clear Calc 92.03, Est GFR (MDRD) Af Amer 100, Est GFR (MDRD) Non-Af 83, BUN/Creatinine Ratio 22.5 H, Glucose 99, Calcium 8.7, Phosphorus 3.6, Magnesium 2.0, Total Bilirubin 0.40, AST 35, ALT 47, Alkaline Phosphatase 54, Total Protein 6.8, Albumin 3.0 L, Globulin 3.8, Albumin/Globulin Ratio 0.8 L Clinical Impression(s) from Imaging Studies Chest CTA 03/22/20 16:17 IMPRESSION: 1. No pulmonary embolism or arterial dissection. 2. Bilateral groundglass opacities and airspace disease consistent with pneumonia. Consider atypical/viral pneumonia. Inpatient E&M: 05107 Subs Hosp L2
[2020-03-25 07:53] VITALS: BP 116/79; PULSE 69; RESP 18; TEMP 36.6; O2SAT 92
[2020-03-25] MEDS: amLODIPine 5 MG Tablet PO (07:56)
[2020-03-25] MEDS: Atenolol 25 MG Tablet PO (07:56)
[2020-03-25] MEDS: Na Biphos/Potassium Phosphate PACKET 1 PACKET PO (07:56)
[2020-03-25] MEDS: Chlorthalidone 50 MG Tablet 12.5 MG PO (07:56)
[2020-03-25] MEDS: dexAMETHasone 4 MG Tablet 6 MG PO (07:57)
[2020-03-25] MEDS: Enoxaparin 40 MG/0.4 ML Syringe SC ×2 (07:57→20:03)
[2020-03-25 11:31] LABS: Absolute Lymphocyte Count 0.41 X10^3/uL (0.83-4.51); Absolute Neutrophil Count 1.4 X10^3/uL (2.0-7.7); Basophil# 0.06 X10^3/uL; Basophil% 2.5 % (0-1); Eosinophil# 0.01 X10^3/uL; Eosinophils% 0.4 % (0-5); Lymphocyte # 0.41 X10^3/ul (4.0); Lymphocyte % 17.4 % (19-41); Monocyte# 0.44 X10^3/uL; Monocyte% 18.6 % (0-10); NRBC Flagged by Analyzer 0 % (0-5); Neutrophil # 1.38 X10^3/uL (2.7-7.7); Neutrophil % 58.6 % (47-70); POSITIVE DIFFERENTIAL YES; POSITIVE MORPHOLOGY YES
[2020-03-25 11:32] LABS: Differential Indicated SCAN CRITERIA MET
[2020-03-25 12:07] LABS: Platelet Estimate ADEQUATE (ADEQ); Reactive Lymphocyte RARE; Toxic Granulation RARE
[2020-03-25 14:30] VITALS: BP 124/65; PULSE 71; RESP 18; TEMP 36.7; O2SAT 95
[2020-03-25 17:34] VITALS: BP 134/87; PULSE 67; RESP 18; TEMP 37.1; O2SAT 92
[2020-03-25 19:58] VITALS: BP 146/87; PULSE 86; RESP 18; TEMP 36.4; O2SAT 94
[2020-03-26 02:16] VITALS: BP 150/90; PULSE 67; RESP 18; TEMP 36.8; O2SAT 94
[2020-03-26 06:49] LABS: Hematocrit 39.8 % (40-54); Hemoglobin 13.6 g/dL (13.0-16.5); Mean Corp Hgb Conc 34.2 g/dL (32-36); Mean Corpuscular Hgb 31.2 pg (27.0-32.0); Mean Corpuscular Volume 91.3 fL (80-94); Mean Platelet Vol. 9.3 fl (6.2-12.0); POSITIVE COUNT YES; POSITIVE DIFFERENTIAL YES; POSITIVE MORPHOLOGY YES; Platelet Count 297 K/mm3 (150-450); RBC Distribution Width CV 12.5 % (11.6-14.6); RBC Distribution Width SD 41.8 fl (35.1-43.9); Red Blood Count 4.36 M/mm3 (4.6-6.2); White Blood Count 2.7 K/mm3 (4.4-11.0)
[2020-03-26 06:50] LABS: Differential Indicated MANUAL DIFF
[2020-03-26 07:16] LABS: Lymphocyte 12 % (19-41); Metamyelocyte 5 % (0-1); Monocyte 18 % (0-10); Neutrophil-Band 4 % (0-5); Neutrophil-Segmented 61 % (47-70); Total Cells Counted 100 (MANUAL DIFF)
[2020-03-26 07:17] LABS: Absolute Lymphocyte Count 0.32 X10^3/uL (0.83-4.51); Absolute Neutrophil Count 1.8 X10^3/uL (2.0-7.7); Platelet Estimate ADEQUATE (ADEQ); Red Cell Morphology NORM C+C NORMAL (NORM C&C)
[2020-03-26 07:18] LABS: AST(SGOT) 31 U/L (15-37); Alanine Aminotransfer ALT/SGPT 52 U/L (16-61); Alkaline Phosphatase 61 U/L (45-117); Anion Gap 9 (5-15); BUN 23 mg/dL (7-18); BUN/Creat Ratio 23.7 RATIO (10-20); Calcium,Total 8.5 mg/dL (8.5-10.1); Chloride 100 mmol/L (98-107); Creatinine, Serum 0.97 mg/dL (0.70-1.30); EST Glomerular Filtration Rate 84 mL/min (>60); Est Glom Filt Rate - Afr Amer 101 mL/min (>60); Estimated Creatinine Clearance 92.98 ml/min; Globulin 3.1 g/dL (2.2-4.2); Glucose 100 mg/dL (74-106); Potassium 3.9 mmol/L (3.5-5.1); Protein, Total 6.1 g/dL (6.4-8.2); Sodium Level 136 mmol/L (136-145)
[2020-03-26 08:15] VITALS: BP 114/78; PULSE 68; RESP 18; TEMP 36.3; O2SAT 92
[2020-03-26] MEDS: Chlorthalidone 50 MG Tablet 12.5 MG PO (08:24)
[2020-03-26] MEDS: dexAMETHasone 4 MG Tablet 6 MG PO (08:26)
[2020-03-26] MEDS: amLODIPine 5 MG Tablet PO (08:26)
[2020-03-26] MEDS: Atenolol 25 MG Tablet PO (08:27)
[2020-03-26] MEDS: Enoxaparin 40 MG/0.4 ML Syringe SC ×2 (08:27→20:46)
[2020-03-26 14:15] VITALS: BP 111/69; PULSE 75; RESP 18; TEMP 36.6; O2SAT 92
--- NOTE | 2020-03-26 14:57 | CHAPLAIN ---
Type of Pastoral Visit ___ Initial Visit ___ Follow-up Visit ___ On-call Visit ___ General Patient Visit ___ Spiritual Assessment ___ Family Conference ___ Bereavement ___ Rapid Response ___ Code Blue _x__ Other (describe below) Pastoral Care Referral From ___ Patient ___ Family ___ Nurse ___ Physician ___ Machine Load Clerk ___ Eligibility Examiner _x__ Other (describe below) Sacrament/Intervention _x__ Active listening ___ Anointing ___ Adventist ___ Bereavement ___ Communion ___ Belkis exploration ___ _x__ Life review _x__ Prayer ___ Reconciliation ___ Sacrament of Sick ___ Supportive presence ___ Wedding ___ Other (describe below) Pastoral Comments phone call to patient room to offer support; pt welcomed call and said he is doing some better; pt says is sick at home and that he hopes to get home soon; pt states he is member of [employer] and welcomes the call and prayer
[2020-03-26 15:19] LABS: Pathologist Review Reviewed
[2020-03-26 15:23] LABS: Pathologist Review Reviewed
--- NOTE | 2020-03-26 15:23 | PN.ID_ITS ---
Patient Problems: Active and Suspected Problems (Last Reviewed 05/24/18 @ 10:31 by Libby Rinaldi) Hypokalemia (Acute) Hypoxia (Acute) Pneumonia due to COVID-19 virus (Acute) Subjective: Feeling better, at home starting to improve. No fever. No n/v/d. - Physical Exam Vitals/I&O's: Vital Signs Temp Pulse Resp BP Pulse Ox 97.3 F L 68 18 114/78 92 03/26/20 08:15 03/26/20 08:15 03/26/20 08:15 03/26/20 08:15 03/26/20 08:15 Oxygen Delivery Method Room Air Weight: 114 kg Body Mass Index (BMI) 32.1 Intake and Output for Last 24 Hours 03/24/20 03/25/20 03/26/20 23:59 23:59 23:59 Intake Total 1050 / 1050 800 / 800 490 / 490 Output Total 800 / 800 350 / 350 Balance 1050 / 1050 0 / 0 140 / 140 General: Alert, Cooperative, No apparent distress Lungs: Clear to auscultation, Diminished Cardiovascular: Regular rate, Regular Rhythm Abdomen: Soft, Non Tender, Non-Distended Skin: No rashes Microbiology Past 72 Hours 03/26/20 09:00 Sputum, Expectorated/Coughed Gram Stain - Final 03/22/20 16:00 Blood Culture (Wb) - Right Forearm Blood Culture - Preliminary No growth in 48 hours. 03/22/20 15:50 Blood Culture (Wb) - Anticubital Left Blood Culture - Preliminary No growth in 48 hours. Laboratory Results 03/25/20 06:46: Diff Path Review Reviewed 03/26/20 06:20: Sodium 136, Potassium 3.9, Chloride 100, Carbon Dioxide 27.0, Anion Gap 9, BUN 23 H, Creatinine 0.97, Estim Creat Clear Calc 92.98, Est GFR (MDRD) Af Amer 101, Est GFR (MDRD) Non-Af 84, BUN/Creatinine Ratio 23.7 H, Glucose 100, Calcium 8.5, Total Bilirubin 0.30, AST 31, ALT 52, Alkaline Phosphatase 61, Total Protein 6.1 L, Albumin 3.0 L, Globulin 3.1, Albumin/Globulin Ratio 1.0 03/26/20 06:20: WBC 2.7 L, RBC 4.36 L, Hgb 13.6, Hct 39.8 L, MCV 91.3, MCH 31.2, MCHC 34.2, RDW Std Deviation 41.8, RDW Coeff of [place] 12.5, Plt Count 297, MPV 9.3, Neut % (Auto) Not Reportable, Absolute Neuts (auto) 1.8 L, Absolute Lymphs (auto) 0.32 L, Total Counted 100, Neutrophils % (Manual) 61, Band Neutrophils % 4, Lymphocytes % (Manual) 12 L, Monocytes % (Manual) 18 H, Metamyelocytes % 5 H, Diff Path Review August, Platelet Estimate ADEQUATE, RBC Morphology NORM C+C Current Medications Acetaminophen (Acetaminophen 325 Mg Tablet) 650 mg PO Q6H PRN PRN PRN Reason: Pain Score 1-10/Temp > 100.7 F Last Admin: 03/24/20 12:02 Dose: 650 mg Documented by: Albuterol Sulfate (Albuterol Ih 8.5 Gm (Proair) Inhaler (200 Puffs)) 4 - 8 puff INHALATION Q4H PRN PRN PRN Reason: Dyspnea, wheezing Amlodipine Besylate (Amlodipine 5 Mg Tablet) 5 mg PO DAILY [facility] Last Admin: 03/26/20 08:26 Dose: 5 mg Documented by: Atenolol (Atenolol 25 Mg Tablet) 25 mg PO DAILY [facility] Last Admin: 03/26/20 08:27 Dose: 25 mg Documented by: Chlorthalidone (Chlorthalidone 50 Mg Tablet) 12.5 mg PO DAILY [facility] Last Admin: 03/26/20 08:24 Dose: 12.5 mg Documented by: Dexamethasone (Dexamethasone 4 Mg Tablet) 6 mg PO DAILY [facility] Stop: 03/31/20 10:01 Last Admin: 03/26/20 08:26 Dose: 6 mg Documented by: Enoxaparin Sodium (Enoxaparin 40 Mg/0.4 Ml Syringe) 40 mg SC Q12@1000,2200 [facility] Last Admin: 03/26/20 08:27 Dose: 40 mg Documented by: Guaifenesin (Guaifenesin 10 Ml Udc (200mg/10ml)) 20 ml PO Q4H PRN PRN PRN Reason: COUGH Last Admin: 03/24/20 10:06 Dose: 20 ml Documented by: Hydralazine HCl (Hydralazine 20 Mg/Ml Vial) 10 mg IV Q4H PRN PRN PRN Reason: SBP > 180 Remdesivir 100 mg/ Sodium (Chloride) 250 mls @ 125 mls/hr IV DAILY [facility]; Protocol Stop: 03/27/20 11:59 Last Infusion: 03/26/20 13:38 Dose: Infused Documented by: Melatonin (Melatonin 3 Mg Tablet) 3 mg PO QHS PRN PRN PRN Reason: INSOMNIA Last Admin: 03/24/20 00:47 Dose: 3 mg Documented by: Morphine Sulfate (Morphine 2 Mg/Ml Syringe) 2 mg IV Q3H PRN PRN PRN Reason: Pain Score 6-10 Nitroglycerin (Nitroglycerin (Inpatient Use) 0.4 Mg Tab.Subl) 0.4 mg SUBLINGUAL Q5M PRN PRN Reason: CARDIAC/CHEST PAIN Ondansetron HCl (Ondansetron 4 Mg/2 Ml Vial) 4 mg IV Q8H PRN PRN PRN Reason: NAUSEA/VOMITING Oxycodone HCl (Oxycodone 5 Mg Tablet) 5 mg PO Q4H PRN PRN PRN Reason: Pain Score 4-5 Pantoprazole Sodium (Pantoprazole Sodium 40 Mg Tablet) 40 mg PO DAILY PRN PRN PRN Reason: acid Potassium Chloride (Potassium Chloride 20 Meq Tablet) 40 meq PO DAILY [facility] Last Admin: 03/26/20 08:24 Dose: 40 meq Documented by: Prochlorperazine Edisylate (Prochlorperazine 10 Mg/2 Ml Vial) 5 mg IV Q4H PRN PRN PRN Reason: Breakthrough nausea/vomiting Psyllium Hydrophilic Mucilloid (Psyllium 1 Packet) 1 packet PO DAILY PRN PRN PRN Reason: Constipation Senna/Docusate Sodium (Senna/Docusate Sodium 1 Tablet) 2 tablet PO BID PRN PRN PRN Reason: Constipation Sodium Chloride (0.9% Saline Lock 10 Ml Syringe) 10 - 40 ml IV UD PRN PRN Reason: SALINE FLUSH Last Admin: 03/24/20 11:53 Dose: 10 ml Documented by: Throat Lozenges (Benzocaine/Menthol 1 Lozenge) 1 lozenge MUCOUS MEM Q2H PRN PRN PRN Reason: SORE THROAT Medical Necessity - Tobacco Use Smoking Status: Former smoker - Patient quit cigarette tobacco usage greater than 5 years prior he notes but cannot give exact timeline, prior to this a less than 1 pack/day since he been a teenager. Tobacco Use: Non-smoker Route of nutrition/ use of supplements: [] Nutritional Intake: [] IV Site: [] Brewer Catheter: [] - Assessment/Plan Antibiotics: [] Assessment/Plan: [] Active and Suspected Problems (Last Reviewed 05/24/18 @ 10:31 by Libby Rinaldi) Hypokalemia (Acute) Hypoxia (Acute) Pneumonia due to COVID-19 virus (Acute) suspected covid on rituximab for lymphoma - classic covid symptoms, strong exposure history, lymphopenia, and also sick with similar sx. CT neg for PE. D-dimer was 6. On lovenox at intermediate dose for prophylaxis. Cont dex, remdesivir. Ok for d/c home to complete 10 days total of dex. Quarantine for 20 days from start of symptoms. Will follow
--- NOTE | 2020-03-26 17:37 | PN_ITS ---
Patient Problems: Active and Suspected Problems (Last Reviewed 05/24/18 @ 10:31 by Libby Rinaldi) Hypokalemia (Acute) Hypoxia (Acute) Pneumonia due to COVID-19 virus (Acute) Subjective: Pt states that he got a bit lightheaded and required O2 today where he was off earlier. Feeling ok now. Would like to go home tomorrow if ready. Vitals/I&O's: Vital Signs Temp Pulse Resp BP Pulse Ox 97.9 F 75 18 111/69 92 03/26/20 14:15 03/26/20 14:15 03/26/20 14:15 03/26/20 14:15 03/26/20 14:15 Oxygen Flow Rate (L/min) 2 Oxygen Delivery Method Nasal Cannula Weight: 114 kg Body Mass Index (BMI) 32.1 Intake and Output for Last 24 Hours 03/24/20 03/25/20 03/26/20 23:59 23:59 23:59 Intake Total 1050 / 1050 800 / 800 850 / 850 Output Total 800 / 800 350 / 350 Balance 1050 / 1050 0 / 0 500 / 500 General: Alert, Oriented x3, Cooperative, No apparent distress, Well developed, Well nourished, - - WM sitting up in chair, mild dyspnea with conversation Oral: - - no thrush Lungs: Clear to auscultation, No rhonchi, No wheeze, No rales, Diminished Cardiovascular: Regular rate, Regular Rhythm, Normal S1, Normal S2, No murmurs, No Ectopic Activity, No rub noted, No Gallop Abdomen: Bowel Sounds Present, Soft, Non Tender, Non-Distended, No Hepato- splenomegaly, No hernias noted Extremities: No clubbing, No cyanosis, No edema, Capillary Refill Less than 3 Seconds, Peripheral Pulses Normal Neurological: Cranial nerves II-XII grossly intact, Neuro grossly intact Psych/Mental Status: Normal Affect, Appropriate Microbiology Past 72 Hours 03/26/20 09:00 Sputum, Expectorated/Coughed Gram Stain - Final 03/22/20 16:00 Blood Culture (Wb) - Right Forearm Blood Culture - Preliminary No growth in 48 hours. 03/22/20 15:50 Blood Culture (Wb) - Anticubital Left Blood Culture - Preliminary No growth in 48 hours. Laboratory Results 03/25/20 06:46: Diff Path Review Reviewed 03/26/20 06:20: Sodium 136, Potassium 3.9, Chloride 100, Carbon Dioxide 27.0, Anion Gap 9, BUN 23 H, Creatinine 0.97, Estim Creat Clear Calc 92.98, Est GFR (MDRD) Af Amer 101, Est GFR (MDRD) Non-Af 84, BUN/Creatinine Ratio 23.7 H, Glucose 100, Calcium 8.5, Total Bilirubin 0.30, AST 31, ALT 52, Alkaline Phosphatase 61, Total Protein 6.1 L, Albumin 3.0 L, Globulin 3.1, Albumin/Globulin Ratio 1.0 03/26/20 06:20: WBC 2.7 L, RBC 4.36 L, Hgb 13.6, Hct 39.8 L, MCV 91.3, MCH 31.2, MCHC 34.2, RDW Std Deviation 41.8, RDW Coeff of [place] 12.5, Plt Count 297, MPV 9.3, Neut % (Auto) Not Reportable, Absolute Neuts (auto) 1.8 L, Absolute Lymphs (auto) 0.32 L, Total Counted 100, Neutrophils % (Manual) 61, Band Neutrophils % 4, Lymphocytes % (Manual) 12 L, Monocytes % (Manual) 18 H, Metamyelocytes % 5 H, Diff Path Review Reviewed, Platelet Estimate ADEQUATE, RBC Morphology NORM C+C Current Medications Acetaminophen (Acetaminophen 325 Mg Tablet) 650 mg PO Q6H PRN PRN PRN Reason: Pain Score 1-10/Temp > 100.7 F Last Admin: 03/24/20 12:02 Dose: 650 mg Documented by: Albuterol Sulfate (Albuterol Ih 8.5 Gm (Proair) Inhaler (200 Puffs)) 4 - 8 puff INHALATION Q4H PRN PRN PRN Reason: Dyspnea, wheezing Amlodipine Besylate (Amlodipine 5 Mg Tablet) 5 mg PO DAILY [facility] Last Admin: 03/26/20 08:26 Dose: 5 mg Documented by: Atenolol (Atenolol 25 Mg Tablet) 25 mg PO DAILY [facility] Last Admin: 03/26/20 08:27 Dose: 25 mg Documented by: Chlorthalidone (Chlorthalidone 50 Mg Tablet) 12.5 mg PO DAILY [facility] Last Admin: 03/26/20 08:24 Dose: 12.5 mg Documented by: Dexamethasone (Dexamethasone 4 Mg Tablet) 6 mg PO DAILY [facility] Stop: 03/31/20 10:01 Last Admin: 03/26/20 08:26 Dose: 6 mg Documented by: Enoxaparin Sodium (Enoxaparin 40 Mg/0.4 Ml Syringe) 40 mg SC Q12@1000,2200 [facility] Last Admin: 03/26/20 08:27 Dose: 40 mg Documented by: Guaifenesin (Guaifenesin 10 Ml Udc (200mg/10ml)) 20 ml PO Q4H PRN PRN PRN Reason: COUGH Last Admin: 03/24/20 10:06 Dose: 20 ml Documented by: Hydralazine HCl (Hydralazine 20 Mg/Ml Vial) 10 mg IV Q4H PRN PRN PRN Reason: SBP > 180 Remdesivir 100 mg/ Sodium (Chloride) 250 mls @ 125 mls/hr IV DAILY [facility]; Protocol Stop: 03/27/20 11:59 Last Infusion: 03/26/20 13:38 Dose: Infused Documented by: Melatonin (Melatonin 3 Mg Tablet) 3 mg PO QHS PRN PRN PRN Reason: INSOMNIA Last Admin: 03/24/20 00:47 Dose: 3 mg Documented by: Morphine Sulfate (Morphine 2 Mg/Ml Syringe) 2 mg IV Q3H PRN PRN PRN Reason: Pain Score 6-10 Nitroglycerin (Nitroglycerin (Inpatient Use) 0.4 Mg Tab.Subl) 0.4 mg SUBLINGUAL Q5M PRN PRN Reason: CARDIAC/CHEST PAIN Ondansetron HCl (Ondansetron 4 Mg/2 Ml Vial) 4 mg IV Q8H PRN PRN PRN Reason: NAUSEA/VOMITING Oxycodone HCl (Oxycodone 5 Mg Tablet) 5 mg PO Q4H PRN PRN PRN Reason: Pain Score 4-5 Pantoprazole Sodium (Pantoprazole Sodium 40 Mg Tablet) 40 mg PO DAILY PRN PRN PRN Reason: acid Potassium Chloride (Potassium Chloride 20 Meq Tablet) 40 meq PO DAILY [facility] Last Admin: 03/26/20 08:24 Dose: 40 meq Documented by: Prochlorperazine Edisylate (Prochlorperazine 10 Mg/2 Ml Vial) 5 mg IV Q4H PRN PRN PRN Reason: Breakthrough nausea/vomiting Psyllium Hydrophilic Mucilloid (Psyllium 1 Packet) 1 packet PO DAILY PRN PRN PRN Reason: Constipation Senna/Docusate Sodium (Senna/Docusate Sodium 1 Tablet) 2 tablet PO BID PRN PRN PRN Reason: Constipation Sodium Chloride (0.9% Saline Lock 10 Ml Syringe) 10 - 40 ml IV UD PRN PRN Reason: SALINE FLUSH Last Admin: 03/24/20 11:53 Dose: 10 ml Documented by: Throat Lozenges (Benzocaine/Menthol 1 Lozenge) 1 lozenge MUCOUS MEM Q2H PRN PRN PRN Reason: SORE THROAT STROKE Vital Signs/Narrative: Vital Signs Temp Pulse Resp BP Pulse Ox 03/26/20 14:15 97.9 F 75 18 111/69 92 Medical Necessity - Tobacco Use Smoking Status: Former smoker - Patient quit cigarette tobacco usage greater than 5 years prior he notes but cannot give exact timeline, prior to this a less than 1 pack/day since he been a teenager. Tobacco Use: Non-smoker Assessment/Plan All Active Problems (Last Reviewed 05/24/18 @ 10:31 by Libby Rinaldi) Hypokalemia (Acute) Hypoxia (Acute) Pneumonia due to COVID-19 virus (Acute) Mesenteric mass (Acute) Hx of colonoscopy (Acute) History of esophagogastroduodenoscopy (EGD) (Acute) Hx of cholecystectomy (Acute) Hx of inguinal hernia repair (Acute) Right lower quadrant pain (Acute) Epigastric pain (Acute) Right renal mass (Acute) Abdominal pain (Acute) Hypertension, accelerated (Acute) Acute Respiratory 2/2 Suspected COVID PNA -COVID was not confirmed but has had exposures via daughters who have tested + -was on RA but now to 2 L with SpO2 92% -continue remdesivir for 5 dose or until d/c -continue 10 days of decadron day 5/10 -fevers have resolved Follicular Lymphoma -Grade 1 -on Rituxan -Follows with Dr. Reyes Lymphopenia -suspect related to COVID but too could be from Rituxan -monitor -counts have been stable GERD -PPI HTN -continue home meds (Chlorthalidone, Atenolol and Norvasc) Obesity -recommend wgt loss -complicates COVID infection RA -follows with outpt Rheum H/O tobacco use -quit Hypokalemia -resolved DVT prophylaxis -Lovenox Code Status -Full Inpatient E&M: 39309 Subs Hosp L2
[2020-03-26 20:00] VITALS: O2SAT 92
[2020-03-26 20:15] VITALS: BP 104/75; PULSE 67; RESP 18; TEMP 36.4; O2SAT 93
[2020-03-26 22:40] VITALS: BP 112/75; PULSE 71; RESP 18; TEMP 36.6; O2SAT 95
[2020-03-27 02:00] VITALS: O2SAT 95
[2020-03-27 06:42] LABS: Hematocrit 41.8 % (40-54); Hemoglobin 14.2 g/dL (13.0-16.5); Mean Corpuscular Hgb 31.6 pg (27.0-32.0); Mean Corpuscular Volume 92.9 fL (80-94); Mean Platelet Vol. 9.3 fl (6.2-12.0); POSITIVE COUNT YES; POSITIVE DIFFERENTIAL YES; POSITIVE MORPHOLOGY YES; Platelet Count 365 K/mm3 (150-450); RBC Distribution Width CV 12.5 % (11.6-14.6); RBC Distribution Width SD 42.7 fl (35.1-43.9); White Blood Count 3.8 K/mm3 (4.4-11.0)
[2020-03-27 06:45] LABS: Differential Indicated MANUAL DIFF
[2020-03-27 07:07] LABS: ALB/GLOB Ratio 0.7 RATIO (0.9-2.4); AST(SGOT) 36 U/L (15-37); Alanine Aminotransfer ALT/SGPT 62 U/L (16-61); Albumin, Serum 2.9 g/dL (3.2-5.0); Alkaline Phosphatase 63 U/L (45-117); Anion Gap 9 (5-15); BUN 26 mg/dL (7-18); BUN/Creat Ratio 27.7 RATIO (10-20); Calcium,Total 8.9 mg/dL (8.5-10.1); Chloride 100 mmol/L (98-107); Creatinine, Serum 0.94 mg/dL (0.70-1.30); EST Glomerular Filtration Rate 87 mL/min (>60); Est Glom Filt Rate - Afr Amer 105 mL/min (>60); Estimated Creatinine Clearance 95.95 ml/min; Glucose 91 mg/dL (74-106); Potassium 3.9 mmol/L (3.5-5.1); Protein, Total 6.9 g/dL (6.4-8.2); Sodium Level 132 mmol/L (136-145)
[2020-03-27 07:12] LABS: Total Cells Counted 100 (MANUAL DIFF)
[2020-03-27 07:22] LABS: Absolute Neutrophil Count 2.3 X10^3/uL (2.0-7.7); Eosinophil 1 % (0-5); Lymphocyte 18 % (19-41); Metamyelocyte 4 % (0-1); Monocyte 11 % (0-10); Myelocyte 5 (0-0); Neutrophil-Band 19 % (0-5); Neutrophil-Segmented 41 % (47-70)
[2020-03-27 07:23] LABS: Absolute Lymphocyte Count 0.69 X10^3/uL (0.83-4.51); Atypical Lymphocyte 1+ %; Lymphocyte # 0.69 X10^3/ul (4.0); Platelet Estimate ADEQUATE (ADEQ)
[2020-03-27 07:55] VITALS: O2SAT 88
[2020-03-27] MEDS: amLODIPine 5 MG Tablet PO (08:03)
[2020-03-27] MEDS: Atenolol 25 MG Tablet PO (08:04)
[2020-03-27] MEDS: dexAMETHasone 4 MG Tablet 6 MG PO (08:04)
[2020-03-27] MEDS: Chlorthalidone 50 MG Tablet 12.5 MG PO (08:04)
[2020-03-27] MEDS: Enoxaparin 40 MG/0.4 ML Syringe SC (08:05)
[2020-03-27 08:09] VITALS: BP 108/58; PULSE 69; RESP 18; TEMP 36.3; O2SAT 92
[2020-03-27 09:44] VITALS: O2SAT 88; O2SAT 89; O2SAT 91
[2020-03-27 09:46] VITALS: BP 130/76; PULSE 75; RESP 16; TEMP 36.4; O2SAT 96
--- NOTE | 2020-03-27 10:43 | CASEMGMT ---
Addendum entered by Ananth Lawrence 03/27/20 11:38: Call to Sophia @ [facility]. Oxygen is being processed and portable tank will arrive after 1 pm. Hilda MUIR Original Note: JIMY DOBBINS Note: Home oxygen set up through [facility] in [place] (Innetwork per [employer] website). Call to [facility], and Sophia, med supply rep was on another line. JIMY DOBBINS call back information given. Fax confirmation ok. Hilda DIAZM
--- NOTE | 2020-03-27 11:09 | PCM.PN.ID ---
Patient Problems: Active and Suspected Problems (Last Reviewed 05/24/18 @ 10:31 by Libby Rinaldi) Hypokalemia (Acute) Hypoxia (Acute) Pneumonia due to COVID-19 virus (Acute) Subjective: Feeling better, some green sputum, no fever, breathing improved - Physical Exam Vitals/I&O's: Vital Signs Temp Pulse Resp BP Pulse Ox 97.6 F L 75 16 130/76 H 96 03/27/20 09:46 03/27/20 09:46 03/27/20 09:46 03/27/20 09:46 03/27/20 09:46 Oxygen Flow Rate (L/min) [ 3 AMBULATION with Oxygen] Oxygen Flow Rate (L/min) 3 Oxygen Delivery Method Nasal Cannula Weight: 114 kg Body Mass Index (BMI) 32.1 Intake and Output for Last 24 Hours 03/25/20 03/26/20 03/27/20 23:59 23:59 23:59 Intake Total 800 / 800 850 / 850 Output Total 800 / 800 350 / 350 Balance 0 / 0 500 / 500 General: Alert, Cooperative, No apparent distress Lungs: Clear to auscultation, Diminished Cardiovascular: Regular rate, Regular Rhythm Abdomen: Soft, Non Tender, Non-Distended Skin: No rashes Microbiology Past 72 Hours 03/26/20 09:00 Sputum, Expectorated/Coughed Gram Stain - Final 03/26/20 09:00 Sputum, Expectorated/Coughed Respiratory Culture - Preliminary Gram negative cocco bacillus 03/22/20 16:00 Blood Culture (Wb) - Right Forearm Blood Culture - Preliminary No growth in 48 hours. 03/22/20 15:50 Blood Culture (Wb) - Anticubital Left Blood Culture - Preliminary No growth in 48 hours. Laboratory Results 03/25/20 06:46: Diff Path Review Reviewed 03/26/20 06:20: Diff Path Review Reviewed 03/27/20 05:54: Sodium 132 L, Potassium 3.9, Chloride 100, Carbon Dioxide 23.0, Anion Gap 9, BUN 26 H, Creatinine 0.94, Estim Creat Clear Calc 95.95, Est GFR (MDRD) Af Amer 105, Est GFR (MDRD) Non-Af 87, BUN/Creatinine Ratio 27.7 H, Glucose 91, Calcium 8.9, Total Bilirubin 0.60, AST 36, ALT 62 H, Alkaline Phosphatase 63, Total Protein 6.9, Albumin 2.9 L, Globulin 4.0, Albumin/Globulin Ratio 0.7 L 03/27/20 05:54: WBC 3.8 L, RBC 4.50 L, Hgb 14.2, Hct 41.8, MCV 92.9, MCH 31.6, MCHC 34.0, RDW Std Deviation 42.7, RDW Coeff of [place] 12.5, Plt Count 365, MPV 9.3, Neut % (Auto) Not Reportable, Absolute Neuts (auto) 2.3, Absolute Lymphs (auto) 0.69 L, Total Counted 100, Neutrophils % (Manual) 41 L, Band Neutrophils % 19 H, Lymphocytes % (Manual) 18 L, Monocytes % (Manual) 11 H, Eosinophils % (Manual) 1, Metamyelocytes % 4 H, Myelocytes % 5 H, Diff Path Review May foll, Atypical Lymphocytes 1+, Platelet Estimate ADEQUATE Current Medications Acetaminophen (Acetaminophen 325 Mg Tablet) 650 mg PO Q6H PRN PRN PRN Reason: Pain Score 1-10/Temp > 100.7 F Last Admin: 03/24/20 12:02 Dose: 650 mg Documented by: Albuterol Sulfate (Albuterol Ih 8.5 Gm (Proair) Inhaler (200 Puffs)) 4 - 8 puff INHALATION Q4H PRN PRN PRN Reason: Dyspnea, wheezing Amlodipine Besylate (Amlodipine 5 Mg Tablet) 5 mg PO DAILY [facility] Last Admin: 03/27/20 08:03 Dose: 5 mg Documented by: Atenolol (Atenolol 25 Mg Tablet) 25 mg PO DAILY [facility] Last Admin: 03/27/20 08:04 Dose: 25 mg Documented by: Chlorthalidone (Chlorthalidone 50 Mg Tablet) 12.5 mg PO DAILY [facility] Last Admin: 03/27/20 08:04 Dose: 12.5 mg Documented by: Dexamethasone (Dexamethasone 4 Mg Tablet) 6 mg PO DAILY [facility] Stop: 03/31/20 10:01 Last Admin: 03/27/20 08:04 Dose: 6 mg Documented by: Enoxaparin Sodium (Enoxaparin 40 Mg/0.4 Ml Syringe) 40 mg SC Q12@1000,2200 [facility] Last Admin: 03/27/20 08:05 Dose: 40 mg Documented by: Guaifenesin (Guaifenesin 10 Ml Udc (200mg/10ml)) 20 ml PO Q4H PRN PRN PRN Reason: COUGH Last Admin: 03/24/20 10:06 Dose: 20 ml Documented by: Hydralazine HCl (Hydralazine 20 Mg/Ml Vial) 10 mg IV Q4H PRN PRN PRN Reason: SBP > 180 Remdesivir 100 mg/ Sodium (Chloride) 250 mls @ 125 mls/hr IV DAILY [facility]; Protocol Stop: 03/27/20 11:59 Last Admin: 03/27/20 10:26 Dose: 125 mls/hr Documented by: Melatonin (Melatonin 3 Mg Tablet) 3 mg PO QHS PRN PRN PRN Reason: INSOMNIA Last Admin: 03/24/20 00:47 Dose: 3 mg Documented by: Morphine Sulfate (Morphine 2 Mg/Ml Syringe) 2 mg IV Q3H PRN PRN PRN Reason: Pain Score 6-10 Nitroglycerin (Nitroglycerin (Inpatient Use) 0.4 Mg Tab.Subl) 0.4 mg SUBLINGUAL Q5M PRN PRN Reason: CARDIAC/CHEST PAIN Ondansetron HCl (Ondansetron 4 Mg/2 Ml Vial) 4 mg IV Q8H PRN PRN PRN Reason: NAUSEA/VOMITING Oxycodone HCl (Oxycodone 5 Mg Tablet) 5 mg PO Q4H PRN PRN PRN Reason: Pain Score 4-5 Pantoprazole Sodium (Pantoprazole Sodium 40 Mg Tablet) 40 mg PO DAILY PRN PRN PRN Reason: acid Potassium Chloride (Potassium Chloride 20 Meq Tablet) 40 meq PO DAILY [facility] Last Admin: 03/27/20 08:03 Dose: 40 meq Documented by: Prochlorperazine Edisylate (Prochlorperazine 10 Mg/2 Ml Vial) 5 mg IV Q4H PRN PRN PRN Reason: Breakthrough nausea/vomiting Psyllium Hydrophilic Mucilloid (Psyllium 1 Packet) 1 packet PO DAILY PRN PRN PRN Reason: Constipation Senna/Docusate Sodium (Senna/Docusate Sodium 1 Tablet) 2 tablet PO BID PRN PRN PRN Reason: Constipation Sodium Chloride (0.9% Saline Lock 10 Ml Syringe) 10 - 40 ml IV UD PRN PRN Reason: SALINE FLUSH Last Admin: 03/24/20 11:53 Dose: 10 ml Documented by: Throat Lozenges (Benzocaine/Menthol 1 Lozenge) 1 lozenge MUCOUS MEM Q2H PRN PRN PRN Reason: SORE THROAT Medical Necessity - Tobacco Use Smoking Status: Former smoker - Patient quit cigarette tobacco usage greater than 5 years prior he notes but cannot give exact timeline, prior to this a less than 1 pack/day since he been a teenager. Tobacco Use: Non-smoker Route of nutrition/ use of supplements: [] Nutritional Intake: [] IV Site: [] Brewer Catheter: [] - Assessment/Plan Antibiotics: [] Assessment/Plan: [] Active and Suspected Problems (Last Reviewed 05/24/18 @ 10:31 by Libby Rinaldi) Hypokalemia (Acute) Hypoxia (Acute) Pneumonia due to COVID-19 virus (Acute) suspected covid on rituximab for lymphoma - classic covid symptoms, strong exposure history, lymphopenia, and also sick with similar sx. CT neg for PE. D-dimer was 6. On lovenox at intermediate dose for prophylaxis. Cont dex, remdesivir. Ok for d/c home to complete 10 days total of dex. Quarantine for 20 days from start of symptoms. Sputum with possible haemophilis but with improving symptoms, no fever, clear but diminished lungs, I would not start any new abx at this time. Will follow
--- NOTE | 2020-03-27 12:59 | PCM.DC ---
- Discharge Diagnoses Current Active Problems: Current Active and Chronic Problems (Last Reviewed 05/24/18 @ 10:31 by Libby Rinaldi) Hypokalemia (Acute) 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 (Chronic) Hypoxia (Acute) Pneumonia due to COVID-19 virus (Acute) HTN (hypertension) (Chronic) GERD (gastroesophageal reflux disease) (Chronic) Former tobacco use (Chronic) Rheumatoid arthritis (Chronic) You will use the following diet at home:: No restrictions, Regular Your food should be the consistency of: Regular Your liquids should be the consistency of: Regular/Thin Discharge Activity: Return to Normal Activity, - - self quarantine 20 days from the onset of symptoms Allergies/Adverse Reactions: Allergies No Known Allergies Allergy (Verified 05/12/19 10:03) Medications to take at Discharge atenolol 25 mg tablet 25 mg PO DAILY 05/06/18 chlorthalidone 25 mg tablet 12.5 mg PO DAILY tab 05/06/18 Esomeprazole Mag Trihydrate [Nexium] 40 mg PO DAILY PRN PRN 05/12/18 Amlodipine [Norvasc] 5 mg PO DAILY 03/22/20 Amoxicillin/Potassium Clav [Augmentin 875-125 Tablet] 1 ea PO BID #14 tab 03/27/20 Dexamethasone [Decadron] 6 mg PO DAILY #5 tab 03/27/20 The following prescriptions were given: Amoxicillin/Potassium Clav [Augmentin 875-125 Tablet] 1 ea PO BID #14 tab Transmission Status: Pending to [facility] Dexamethasone [Decadron] 6 mg PO DAILY #5 tab Transmission Status: Pending to [facility] Primary Care Physician: Kathie Kinney MD [Primary Care Provider] - Please follow up with your Primary Care Physician in: 1-2 weeks Test Results: Test results from this visit will be discussed in further detail at your follow-up appointment, if applicable. Please Follow Up With: kathie kinney When: 04/02/20
--- NOTE | 2020-03-27 13:01 | DS.PCM_ITS ---
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 FEVER, COUGH, SOB, KEY, SORE THROAT, MYALGIAS, DIARRHEA. RADIATION DOSAGE (If Supplied By Facility): CTDIvol = ( 12.54 ) mGy, DLP = ( 557.90 ) mGycm TECHNIQUE: The examination was performed with the intravenous administration of IV 100 ML ISOVUE 370. Post-processing of the angiographic images was performed, with multiplanar reformation and 3D reconstruction. Individualized dose optimization techniques were used for this CT. COMPARISON: 06/01/2018. FINDINGS: The heart and pericardium are normal. The aorta is normal in caliber. No aneurysm or dissection. There is no mediastinal mass or adenopathy. 2 cm right hilar adenopathy. There is no evidence of pulmonary embolus. There is no pleural effusion. Mild centrilobular emphysema. Mild groundglass opacities and airspace disease, greatest in the lower lobes. Mild bronchiectasis, greatest in the lower lobes. 4.2 cm upper pole left renal cyst. Diffuse fatty infiltration of the liver. There is no osseous abnormality. CT/CTA Chest W/WO Contrast IMPRESSION: 1. No pulmonary embolism or arterial dissection. 2. Bilateral groundglass opacities and airspace disease consistent with pneumonia. Consider atypical/viral pneumonia. ID Operations: None Procedures: None Summary of Care Provided: Mr Valencia is a 60 y/o M w/ PMHx: Rheumatoid Arthritis, HTN, GERD, Obesity, Former Tobacco use, Follicular lymphoma grade 1 (currently on Rituxan following with Dr. Reyes with most recent chemotherapy 02/2020) who presented to the [facility] ED on 03/22/20 with onset ~ 8 days prior to presentation of dyspnea, cough, low grade T, body aches, diarrhea, decreased sense of taste/smell, sore throat that had all progressively worsened prompting eventual ED presentation. 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 Work-up in the ED showed a T 101.8, heart rate 102, BP 130/104, respiratory rate 20, 93% on room air however while in the ED did witness patient decreased to 87% even at rest, CBC with WC 2.3, hemoglobin 13.9, platelet 168 with lymphopenia and neutropenia present, coags with PT 15.1, INR 1.2, PTT 33.5, CMP with sodium 135, potassium 3.0, glucose 107, lactic acid 1.1, unremarkable hepatic profile, troponin less than 0.015, rapid Covid testing negative therefore Covid PCR requested was negative as well, blood culture x2 were negative. A CTA chest done in the ED showed no evidence of pulmonary emboli or arterial dissection but did show bilateral ground glass opacities and airspace disease consistent with COVID pneumonia, EKG with sinus rhythm with no acute evidence of ischemia. In the ED patient administered Tylenol 1000 mg p.o. x1, Eliquis 5 mg p.o. x1, Decadron 6 mg p.o. x1, potassium 40 mg p.o. x1, normal saline. He was admitted to the COVID unit and treated with Decadron and Remdesivir. The Remdesivir was completed today and he will be discharged with 5 days of Decadron. He was initially maintained on RA but had some desaturation prior to d/c and was able to be maintained on 2 L nasal cannula at rest and with ambulation. His sputum cx did show GN coccobacillus that was c/w Haemophilus influenza and he was also d/c on Augmentin for 7 days of treatment. He was in stable condition at discharge and is to f/u with his PCP in 1-2 weeks. Discharge Dx Acute Respiratory 2/2 Suspected COVID PNA Haemophilus Influenzae PNA Follicular Lymphoma Lymphopenia GERD HTN Obesity RA H/O tobacco use Hypokalemia Discharge Time > 35' Patient Problems: Active and Suspected Problems (Last Reviewed 05/24/18 @ 10:31 by Libby Rinaldi) Hypokalemia (Acute) Hypoxia (Acute) Pneumonia due to COVID-19 virus (Acute) Subjective: Pt states that he is feeling well and wants to go home to finish his recovery. - Physical Exam Vitals/I&O's: Vital Signs Temp Pulse Resp BP Pulse Ox 97.6 F L 75 16 130/76 H 96 03/27/20 09:46 03/27/20 09:46 03/27/20 09:46 03/27/20 09:46 03/27/20 09:46 Oxygen Flow Rate (L/min) [ 3 AMBULATION with Oxygen] Oxygen Flow Rate (L/min) 3 Oxygen Delivery Method Nasal Cannula Weight: 114 kg Body Mass Index (BMI) 32.1 Intake and Output for Last 24 Hours 03/25/20 03/26/20 03/27/20 23:59 23:59 23:59 Intake Total 800 / 800 850 / 850 250 / 250 Output Total 800 / 800 350 / 350 Balance 0 / 0 500 / 500 250 / 250 General: Alert, Oriented x3, Cooperative, Well developed, Well nourished HEENT: Atraumatic, Normocephalic Oral: Moist Mucosa, No Gingival or Mucosal Lesions/ Ulcerations, - - no thrush Neck: Supple, Trachea Midline Lungs: Clear to auscultation, No rhonchi, No wheeze, No rales, Diminished Cardiovascular: Regular rate, Regular Rhythm, Normal S1, Normal S2, No murmurs, No Ectopic Activity, No rub noted, No Gallop Abdomen: Bowel Sounds Present, Soft, Non Tender, Non-Distended, No Hepato- splenomegaly, No hernias noted Extremities: No clubbing, No cyanosis, No edema, Capillary Refill Less than 3 S econds, Peripheral Pulses Normal Skin: No rashes, No breakdown Musculoskeletal: No Tenderness to Palpation of Joints or Extremities, No Muscle Wasting Lymphatic: No Cervical, Supraclavicular, or Inguinal Adenopathy Neurological: Cranial nerves II-XII grossly intact, Neuro grossly intact Psych/Mental Status: Normal Affect, Appropriate Microbiology Past 72 Hours 03/26/20 09:00 Sputum, Expectorated/Coughed Gram Stain - Final 03/26/20 09:00 Sputum, Expectorated/Coughed Respiratory Culture - Preliminary Gram negative cocco bacillus 03/22/20 16:00 Blood Culture (Wb) - Right Forearm Blood Culture - Prelimina ry No growth in 48 hours. 03/22/20 15:50 Blood Culture (Wb) - Anticubital Left Blood Culture - Preliminary No growth in 48 hours. Laboratory Results 03/25/20 06:46: Diff Path Review Reviewed 03/26/20 06:20: Diff Path Review Reviewed 03/27/20 05:54: Sodium 132 L, Potassium 3.9, Chloride 100, Carbon Dioxide 23.0, Anion Gap 9, BUN 26 H, Creatinine 0.94, Estim Creat Clear Calc 95.95, Est GFR (MDRD) Af Amer 105, Est GFR (MDRD) Non-Af 87, BUN/Creatinine Ratio 27.7 H, Glucose 91, Calcium 8.9, Total Bilirubin 0.60, AST 36, ALT 62 H, Alkaline Phosphatase 63, Total Protein 6.9, Albumin 2.9 L, Globulin 4.0, Albumin/Globulin Ratio 0.7 L 03/27/20 05:54: WBC 3.8 L, RBC 4.50 L, Hgb 14.2, Hct 41.8, MCV 92.9, MCH 31.6, MCHC 34.0, RDW Std Deviation 42.7, RDW Coeff of [place] 12.5, Plt Count 365, MPV 9.3, Neut % (Auto) Not Reportable, Absolute Neuts (auto) 2.3, Absolute Lymphs (auto) 0.69 L, Total Counted 100, Neutrophils % (Manual) 41 L, Band Neutrophils % 19 H, Lymphocytes % (Manual) 18 L, Monocytes % (Manual) 11 H, Eosinophils % (Manual) 1, Metamyelocytes % 4 H, Myelocytes % 5 H, Diff Path Review May foll, Atypical Lymphocytes 1+, Platelet Estimate ADEQUATE Current Medications Acetaminophen (Acetaminophen 325 Mg Tablet) 650 mg PO Q6H PRN PRN PRN Reason: Pain Score 1-10/Temp > 100.7 F Last Admin: 03/24/20 12:02 Dose: 650 mg Documented by: Albuterol Sulfate (Albuterol Ih 8.5 Gm (Proair) Inhaler (200 Puffs)) 4 - 8 puff INHALATION Q4H PRN PRN PRN Reason: Dyspnea, wheezing Amlodipine Besylate (Amlodipine 5 Mg Tablet) 5 mg PO DAILY [facility] Last Admin: 03/27/20 08:03 Dose: 5 mg Documented by: Atenolol (Atenolol 25 Mg Tablet) 25 mg PO DAILY [facility] Last Admin: 03/27/20 08:04 Dose: 25 mg Documented by: Chlorthalidone (Chlorthalidone 50 Mg Tablet) 12.5 mg PO DAILY [facility] Last Admin: 03/27/20 08:04 Dose: 12.5 mg Documented by: Dexamethasone (Dexamethasone 4 Mg Tablet) 6 mg PO DAILY [facility] Stop: 03/31/20 10:01 Last Admin: 03/27/20 08:04 Dose: 6 mg Documented by: Enoxaparin Sodium (Enoxaparin 40 Mg/0.4 Ml Syringe) 40 mg SC Q12@1000,2200 [facility] Last Admin: 03/27/20 08:05 Dose: 40 mg Documented by: Guaifenesin (Guaifenesin 10 Ml Udc (200mg/10ml)) 20 ml PO Q4H PRN PRN PRN Reason: COUGH Last Admin: 03/24/20 10:06 Dose: 20 ml Documented by: Hydralazine HCl (Hydralazine 20 Mg/Ml Vial) 10 mg IV Q4H PRN PRN PRN Reason: SBP > 180 Melatonin (Melatonin 3 Mg Tablet) 3 mg PO QHS PRN PRN PRN Reason: INSOMNIA Last Admin: 03/24/20 00:47 Dose: 3 mg Documented by: Morphine Sulfate (Morphine 2 Mg/Ml Syringe) 2 mg IV Q3H PRN PRN PRN Reason: Pain Score 6-10 Nitroglycerin (Nitroglycerin (Inpatient Use) 0.4 Mg Tab.Subl) 0.4 mg SUBLINGUAL Q5M PRN PRN Reason: CARDIAC/CHEST PAIN Ondansetron HCl (Ondansetron 4 Mg/2 Ml Vial) 4 mg IV Q8H PRN PRN PRN Reason: NAUSEA/VOMITING Oxycodone HCl (Oxycodone 5 Mg Tablet) 5 mg PO Q4H PRN PRN PRN Reason: Pain Score 4-5 Pantoprazole Sodium (Pantoprazole Sodium 40 Mg Tablet) 40 mg PO DAILY PRN PRN PRN Reason: acid Potassium Chloride (Potassium Chloride 20 Meq Tablet) 40 meq PO DAILY [facility] Last Admin: 03/27/20 08:03 Dose: 40 meq Documented by: Prochlorperazine Edisylate (Prochlorperazine 10 Mg/2 Ml Vial) 5 mg IV Q4H PRN PRN PRN Reason: Breakthrough nausea/vomiting Psyllium Hydrophilic Mucilloid (Psyllium 1 Packet) 1 packet PO DAILY PRN PRN PRN Reason: Constipation Senna/Docusate Sodium (Senna/Docusate Sodium 1 Tablet) 2 tablet PO BID PRN PRN PRN Reason: Constipation Sodium Chloride (0.9% Saline Lock 10 Ml Syringe) 10 - 40 ml IV UD PRN PRN Reason: SALINE FLUSH Last Admin: 03/24/20 11:53 Dose: 10 ml Documented by: Throat Lozenges (Benzocaine/Menthol 1 Lozenge) 1 lozenge MUCOUS MEM Q2H PRN PRN PRN Reason: SORE THROAT Discharge Activity: Return to Normal Activity, - - self quarantine 20 days from the onset of symptoms Home Medications: Medications to take at Discharge atenolol 25 mg tablet 25 mg PO DAILY 05/06/18 chlorthalidone 25 mg tablet 12.5 mg PO DAILY tab 05/06/18 Esomeprazole Mag Trihydrate [Nexium] 40 mg PO DAILY PRN PRN 05/12/18 Amlodipine [Norvasc] 5 mg PO DAILY 03/22/20 Amoxicillin/Potassium Clav [Augmentin 875-125 Tablet] 1 ea PO BID #14 tab 03/27/20 Dexamethasone [Decadron] 6 mg PO DAILY #5 tab 03/27/20 Following Prescriptions Were Given to Patient: Amoxicillin/Potassium Clav [Augmentin 875-125 Tablet] 1 ea PO BID #14 tab Transmission Status: Sent to [facility] Dexamethasone [Decadron] 6 mg PO DAILY #5 tab Transmission Status: Sent to [facility] Primary Care Physician: Kathie Kinney MD [Primary Care Provider] - Please follow up with your Primary Care Physician in: 1-2 weeks Please Follow Up With: kathie kinney When: 04/02/20 Medical Necessity - Tobacco Use Smoking Status: Former smoker - Patient quit cigarette tobacco usage greater than 5 years prior he notes but cannot give exact timeline, prior to this a less than 1 pack/day since he been a teenager. Tobacco Use: Non-smoker Meaningful Use Info Meaningful Use Diagnoses (Choose all that apply): None applicable Inpatient E&M: 22388 [facility]
[2020-03-27 13:30] LABS: Pathologist Review Reviewed
--- NOTE | 2020-03-28 15:39 | CASEMGMT ---
JIMY DOBBINS Discharge F/U Phone Call LACE: 12 Strata: 3 Discharge date: 03/27/2020 Call date: 03/28/2020 Call time: 1540 Admission dx: COVID, hypoxia Pt's answered and she states pt is sleeping at this time. states pt is doing 'pretty good' since discharge. She states pt has been wearing O2 at night and most of the time during day and that his pulse ox has been good. states no fevers since home and states no questions regarding d/c instructions/medications at this time. voices no further questions/concerns/needs at this time. aware to call JIMY DOBBINS back or PCP with any further questions/concerns/needs. [place] JIMY DOBBINS
== END 2020-03-27 14:10 | disposition home or self-care (01) | DRG 194 ==
LOC: ED 15:31 → MS2 17:50
PROVIDERS: Internal Medicine; Internal Medicine Infectious Disease; Admitting Provider Family Medicine; Emergency Provider Emergency Medicine; PCP Family Medicine; Visit Provider Internal Medicine
DX: J12.89 Other viral pneumonia (principal); C82.00 Follicular lymphoma grade I, unspecified site; C85.10 Unspecified B-cell lymphoma, unspecified site; J47.0 Bronchiectasis with acute lower respiratory infection; D84.9 Immunodeficiency, unspecified; J14 Pneumonia due to Hemophilus influenzae; E87.6 Hypokalemia; M06.9 Rheumatoid arthritis, unspecified; I10 Essential (primary) hypertension; K21.9 Gastro-esophageal reflux disease without esophagitis; E66.9 Obesity, unspecified; Z66 Do not resuscitate; J43.2 Centrilobular emphysema; Z87.891 Personal history of nicotine dependence; Z68.33 Body mass index [BMI] 33.0-33.9, adult; Z79.01 Long term (current) use of anticoagulants; Z90.49 Acquired absence of other specified parts of digestive tract; Z92.21 Personal history of antineoplastic chemotherapy; E83.39 Other disorders of phosphorus metabolism; R09.02 Hypoxemia
CPT/HCPCS: 36415; 71275; 80053; 81001; 82728; 83605; 83615; 83735; 83880; 84100; 84145; 84484; 85025; 85027; 85379; 85610; 85730; 86140; 86850; 86900; 86901; 87040; 87070; 87077; 87205; 87426; 87449; 87633; 87635; 93005; 94667; 97802; 99251; 99285; J7030; J7040; J7050; Q9967; A4216; G0463; U0002

== ENCOUNTER → 2020-04-04 13:59 | Outpatient (CLI) | payer OTHER, SELFPAY ==
[2020-03-22 18:40] VITALS: BMI 32.1
[2020-04-04 18:02] LABS: Hematocrit 47.1 % (40-54); Hemoglobin 15.5 g/dL (13.0-16.5); Mean Corp Hgb Conc 32.9 g/dL (32-36); Mean Corpuscular Hgb 30.9 pg (27.0-32.0); Mean Corpuscular Volume 93.8 fL (80-94); Mean Platelet Vol. 8.6 fl (6.2-12.0); POSITIVE COUNT YES; POSITIVE DIFFERENTIAL YES; POSITIVE MORPHOLOGY YES; Platelet Count 274 K/mm3 (150-450); RBC Distribution Width CV 12.6 % (11.6-14.6); RBC Distribution Width SD 43.3 fl (35.1-43.9); Red Blood Count 5.02 M/mm3 (4.6-6.2); White Blood Count 2.9 K/mm3 (4.4-11.0)
[2020-04-04 18:04] LABS: Differential Indicated MANUAL DIFF
[2020-04-04 18:26] LABS: ALB/GLOB Ratio 0.8 RATIO (0.9-2.4); AST(SGOT) 24 U/L (15-37); Alanine Aminotransfer ALT/SGPT 47 U/L (16-61); Alkaline Phosphatase 82 U/L (45-117); Anion Gap 6 (5-15); BUN 20 mg/dL (7-18); BUN/Creat Ratio 18.2 RATIO (10-20); Calcium,Total 8.6 mg/dL (8.5-10.1); Chloride 99 mmol/L (98-107); EST Glomerular Filtration Rate 72 mL/min (>60); Est Glom Filt Rate - Afr Amer 88 mL/min (>60); Globulin 3.8 g/dL (2.2-4.2); Glucose 91 mg/dL (74-106); Potassium 3.8 mmol/L (3.5-5.1); Protein, Total 6.8 g/dL (6.4-8.2); Sodium Level 133 mmol/L (136-145); Thyroid Stim Hormone (TSH) 1.33 uIU/mL (0.358-3.74)
[2020-04-04 18:38] LABS: Basophil 1 % (0-1); Eosinophil 2 % (0-5); Lymphocyte 12 % (19-41); Monocyte 12 % (0-10); Neutrophil-Band 10 % (0-5); Neutrophil-Segmented 63 % (47-70); Total Cells Counted 100 (MANUAL DIFF)
[2020-04-04 18:40] LABS: Absolute Lymphocyte Count 0.34 X10^3/uL (0.83-4.51); Absolute Neutrophil Count 2.1 X10^3/uL (2.0-7.7)
[2020-04-04 23:54] LABS: Platelet Estimate ADEQUATE (ADEQ); Red Cell Morphology NORM C+C NORMAL (NORM C&C)
[2020-04-05 12:18] LABS: Pathologist Review Reviewed
== END ==
PROVIDERS: PCP Family Medicine; Visit Provider Family Medicine
DX: R53.83 Other fatigue (principal)
CPT/HCPCS: 36415; 80053; 83735; 84443; 85025

== ENCOUNTER → 2020-05-04 11:09 | Outpatient (CLI) | payer OTHER, SELFPAY ==
[2020-03-22 18:40] VITALS: BMI 32.1
[2020-05-04 13:03] LABS: CRP 7.55 mg/L (0.0-3.0)
[2020-05-10 14:10] LABS: QNTFERON TB Mitogen Value > 10.00 IU/mL (.); QNTFERON TB Nil Value 0.41 IU/mL (.); QNTFERON TB2+ Ag Value 0.42 IU/mL (.)
[2020-05-10 20:38] LABS: QNTIFERON TB Positive Criteria Negative (Negative)
== END ==
PROVIDERS: PCP Family Medicine; Referring Provider Family Medicine; Visit Provider Family Medicine
DX: R05 Cough (principal)
CPT/HCPCS: 36415; 86140; 86480

== ENCOUNTER → 2020-05-06 08:09 | Outpatient (CLI) | payer OTHER, SELFPAY ==
[2020-03-22 18:40] VITALS: BMI 32.1
== END ==
PROVIDERS: PCP Family Medicine; Visit Provider Family Medicine
DX: R05 Cough (principal)
CPT/HCPCS: 87015; 87070; 87101; 87116; 87205; 87206

== ENCOUNTER → 2020-05-15 15:44 | Outpatient (CLI) | payer OTHER, SELFPAY ==
[2020-03-22 18:40] VITALS: BMI 32.1
--- NOTE | 2020-05-15 15:46 | CT_ITS ---
STUDY: CT CHEST WITHOUT CONTRAST REASON FOR EXAM: Male, 60 years old. CHRONIC COUGH SINCE COVID IN MARCH, SOB WITH EXERTION, PREV SMOKER-QUIT 10 YRS AGO, LYMPHOMA STILL GETS INFUSIONS ROTUXIN RADIATION DOSAGE (If Supplied By Facility): CTDIvol = ( 19.28 ) mGy, DLP = ( 1244.97 ) mGycm TECHNIQUE: Transaxial imaging was performed without the administration of intravenous contrast material. A Individualized dose optimization techniques were used for this CT. COMPARISON: None. FINDINGS: There is hyperexpansion of the lungs. There is diffuse centrilobular emphysema which appears to have worsened since prior study. Moderate diffuse interstitial fibrosis suggested especially along the periphery of both lungs. No definite focal infiltrates. No effusions. Normal heart and pericardium. There are calcifications of the coronary arteries. Normal mediastinum. Normal hilar regions. Normal unenhanced pulmonary arteries. Normal aorta arch and descending thoracic aorta. There are multi-level degenerative changes of the thoracic spine. There is no demonstrated abnormality of the visualized upper abdomen. CT/Chest without Contrast IMPRESSION: No definite acute abnormality. Centrilobular emphysema that is worse than prior study with patchy areas of fibrosis. No acute chest disease. Electronically Signed: Km Watts MD at 16:37 EST , Service support ,
== END ==
PROVIDERS: PCP Family Medicine; Referring Provider Family Medicine; Visit Provider Family Medicine
DX: J47.9 Bronchiectasis, uncomplicated (principal)
CPT/HCPCS: 71250

== ENCOUNTER → 2020-05-31 22:52 | Outpatient (CLI) | payer OTHER, SELFPAY | PROVIDERS: PCP Family Medicine; Referring Provider Internal Medicine Critical Care Medicine; Visit Provider Internal Medicine Critical Care Medicine | DX: G47.10 Hypersomnia, unspecified (principal) | CPT/HCPCS: 95810 ==

== ENCOUNTER → 2020-06-05 13:35 | Outpatient (CLI) | payer OTHER, SELFPAY ==
[2020-03-22 18:40] VITALS: BMI 32.1
[2020-06-05 13:58] VITALS: PULSE 81; PULSE 82; PULSE 90; PULSE 92; PULSE 93; PULSE 94; PULSE 95; O2SAT 86; O2SAT 89; O2SAT 92; O2SAT 93; O2SAT 96; O2SAT 97
--- NOTE | 2020-06-05 14:06 | CPS ---
Had to put on 2 LPM at 2 mins into test. Resumed test at 4 mins and continued to walk the rest on oxygen. Removed O2 at 8 1/2 mins and rechecked after 2 mins Spo2 WAS 93%. He wears O2 at 2 LPM at night.
--- NOTE | 2020-06-05 15:56 | PCM.PSN.6M ---
PSN 6 Minute Walk Test - 6 Minute Walk Test 6 Minute Walk Test: 6 Minute Walk Test PSN:6-Minute Walk Test Start: 06/05/20 13:58 Freq: Status: Active Protocol: RESP.6MINW Document 06/05/20 13:58 FR (Rec: 06/05/20 14:09 FR [id number]) 6 Minute Walk Test Date Performed 06/05/20 Time Performed 13:30 Height 6 ft 2 in Weight: 113.398 kg Weight in Pounds 250.[address]: Dr. Hobson Assistive device used: None Pre-test Oxygen Delivery Method Room Air Pulse Ox (%) 96 Pulse Rate (60-100 beats/min) 81 Dyspnea Tati Scale (0-10) 1 Exertion Tati Scale (6-20) 6 1st minute Oxygen Delivery Method Room Air Pulse Ox (%) 89 Pulse Rate (60-100 beats/min) 93 2nd minute Oxygen Delivery Method Room Air Pulse Ox (%) 86 Pulse Rate (60-100 beats/min) 95 Reported Symptoms Increased Work of Breathing 3rd minute Oxygen Flow Rate (L/min) (L/min) 2 Oxygen Delivery Method Nasal Cannula Pulse Ox (%) 92 Pulse Rate (60-100 beats/min) 90 Reported Symptoms Increased Work of Breathing 4th minute Oxygen Flow Rate (L/min) (L/min) 2 Oxygen Delivery Method Nasal Cannula Pulse Ox (%) 93 Pulse Rate (60-100 beats/min) 94 5th minute Oxygen Flow Rate (L/min) (L/min) 2 Oxygen Delivery Method Nasal Cannula Pulse Ox (%) 92 Pulse Rate (60-100 beats/min) 95 6th minute Oxygen Flow Rate (L/min) (L/min) 2 Oxygen Delivery Method Nasal Cannula Pulse Ox (%) 92 Pulse Rate (60-100 beats/min) 92 Dyspnea Tati Scale (0-10) 2 Exertion Tati Scale (6-20) 8 Post-test Oxygen Flow Rate (L/min) (L/min) 2 Oxygen Delivery Method Nasal Cannula Pulse Ox (%) 97 Pulse Rate (60-100 beats/min) 82 Full Laps Walked 22 Partial Lap, Number of Tiles Walked 47 Total Distance Walked (ft) 1345 06/05/20 14:06 Cardiopulmonary Services by Olya Westfall Had to put on 2 LPM at 2 mins into test. Resumed test at 4 mins and continued to walk the rest on oxygen. Removed O2 at 8 1/2 mins and rechecked after 2 mins Spo2 WAS 93%. He wears O2 at 2 LPM at night. Initialized on 06/05/20 14:06 - END OF NOTE - Interpretation Interpretation: The patient was noted to be 96% on room air, but desaturated to 86% in the second minute. The patient was placed on 2 L nasal cannula with improvement in saturations and was able to complete his walking oximetry. In total, the patient traveled 1345 feet over the course of 6 minutes with no significant tachycardia. These findings are consistent with a respiratory limitation exercise tolerance. - Recommendations Recommendations: The patient requires no supplemental oxygen at rest, but should be using 2 L nasal cannula with any exertion
== END ==
PROVIDERS: PCP Family Medicine; Referring Provider Internal Medicine Critical Care Medicine; Visit Provider Internal Medicine Critical Care Medicine
DX: J47.9 Bronchiectasis, uncomplicated (principal)
CPT/HCPCS: 94618

== ENCOUNTER → 2020-06-12 09:59 | Outpatient (CLI) | payer OTHER, SELFPAY ==
[2020-03-22 18:40] VITALS: BMI 32.1
--- NOTE | 2020-06-13 09:33 | PFT ---
INTRODUCTION: The patient is a 60-year-old male that presents for pulmonary function studies secondary to a diagnosis of bronchiectasis. Respiratory therapy reports good patient effort. Bronchodilators were used during testing. INTERPRETATION: Forced expiration spirometry demonstrates no evidence of a large airways obstructive ventilatory defect. There was no significant response to aerosolized bronchodilators. Spirograms are of good quality and plateau gradually indicating slow emptying of the lungs. Body plethysmography was performed and revealed a decreased TLC to 6.58 L, 87% of predicted, indicative of a mild restrictive ventilatory impairment. Diffusing capacity by single breath CO is reduced at 56% of predicted. IMPRESSION: Mild restrictive ventilatory impairment with disproportionate reduction in diffusing capacity.
== END ==
PROVIDERS: PCP Family Medicine; Referring Provider Internal Medicine Critical Care Medicine; Visit Provider Internal Medicine Critical Care Medicine
DX: J47.9 Bronchiectasis, uncomplicated (principal)
CPT/HCPCS: 94060; 94726; 94729

== ENCOUNTER → 2020-08-02 16:02 | Outpatient (CLI) | payer OTHER, SELFPAY ==
[2020-08-02 18:10] LABS: PSA,Total - Annual Screen 0.33 ng/mL (0.00-4.00)
== END ==
PROVIDERS: PCP Family Medicine
DX: Z12.5 Encounter for screening for malignant neoplasm of prostate (principal)
CPT/HCPCS: 36415; 84153; G0103

== ENCOUNTER → 2020-08-27 17:05 | Outpatient (CLI) | payer OTHER, SELFPAY ==
--- NOTE | 2020-08-27 16:08 | CYSPIN_PTH ---
PATIENT: CAROLYN GOVEA LOC: [facility] U#:[id number] AGE/SX: 65/M ROOM: RE08/27/[address]: Dr. Jake Bonner MD : 1960 BED: DIS: SPEC #: [id number] RECD: 08/28/20 08:16 STATUS: OTTO LUIS #: [id number] BRITTANEY: 08/27/20 16:[address]: Jake Bonner DEPT: CYTOLOGY RECD BY: Lennie Chase ENTERED: 08/28/20 08:16 SP TYPE: CYSPIN FL OTHR DR: Dr. Estrada Queen MD Tissues: Urine Procedures: Pap Stain (control) Special Stain Group II Cytospin Fluid HEADER OPERATION: Not noted PRE-OP DIAGNOSIS: Family history of malignant bladder neoplasm TISSUE SUBMITTED: Urine for cytology DIAGNOSIS CYTOLOGY Urine for cytology (cytospin): Negative for malignant cells. See comment. KRISTOFER:jovanny 08/29/2020 COMMENT The specimen is paucicellular. Clinical correlation and appropriate follow up are necessary. CYTOLOGY STUDY Slides are reviewed. CYTOLOGY GROSS Received is 70 ml of dark yellow clear fluid labeled with the patient's name and and designated per the requisition as urine. Submitted for cytology preparation. / jovanny 08/28/2020 TC:4 CPT: 96428
[2020-08-27 17:35] LABS: Cytology, Body Fluid / CSF SEE PATHOLOGY REPORT
== END ==
PROVIDERS: PCP Family Medicine; Referring Provider Urology; Visit Provider Urology
DX: Z80.52 Family history of malignant neoplasm of bladder (principal)
CPT/HCPCS: 88108; 88313

== ENCOUNTER → 2020-12-18 09:30 | Outpatient (CLI) | payer OTHER, SELFPAY ==
[2020-10-02 05:35] VITALS: BMI 33.1
--- NOTE | 2020-12-18 21:09 | PFTCOMP_ITS ---
COMPLETE PULMONARY FUNCTION TEST INTERPRETATION Brief HPI: Patient is a 60 year old male, currently under the care of myself, who presents to [facility] for complete pulmonary function tests secondary to diagnosis of bronchiectasis. Respiratory therapist reports good effort and reproducible results. Interpretation: Forced expiration spirometry shows no large airways obstructive ventilatory defect with an FEV1 of 79% predicted. There is no significant bronchodilator response by strict ATS criteria. Spirograms are of good quality and plateau slowly, indicating slowly emptying areas of the lungs. The respiratory flow volume loop shows decreased expiratory flow rates at high lung volumes consistent with small airways obstruction. Lung volumes by body plethysmography show a normal total lung capacity at 6.62 L, 87% predicted. All other lung volumes are within normal limits. Diffusion capacity by carbon monoxide is at the lower limit of normal at 76% predicted. The airway resistance is normal. Compared to previous pulmonary function tests from 06/12/2020, there is been a significant improvement in DLCO by 35%. Impression: Grossly normal pulmonary function studies with some stigmata of small airways disease and significant improvement compared to June 2020
== END ==
PROVIDERS: PCP Family Medicine; Referring Provider Internal Medicine Critical Care Medicine; Visit Provider Internal Medicine Critical Care Medicine
DX: J47.9 Bronchiectasis, uncomplicated (principal); U07.1 COVID-19; J12.89 Other viral pneumonia; M06.9 Rheumatoid arthritis, unspecified
CPT/HCPCS: 94060; 94726; 94729

== ENCOUNTER → 2020-12-20 12:25 | Outpatient (CLI) | payer OTHER, SELFPAY ==
[2020-10-02 05:35] VITALS: BMI 33.1
--- NOTE | 2020-12-20 12:29 | ECHOCS_ITS ---
Reason For Study: PHTN Procedure This was a 2D Doppler, Color Flow transthoracic echocardiogram. The study was technically difficult. Exam performed in department. Left Ventricle Normal LV size. Mild concentric left ventricular hypertrophy. Left ventricular systolic function is normal. The estimated ejection fraction is 60 %. No evidence for diastolic dysfunction. No regional wall motion abnormalities noted. Right Ventricle Normal RV size. Normal systolic function. Atria Normal left atrium. Normal right atrium. No doppler evidence for ASD. Mitral Valve There is no mitral annular calcification. Normal mitral valve. Trivial mitral valve insufficiency. Tricuspid Valve Normal tricuspid valve. Trivial tricuspid valve insufficiency. Right ventricular systolic pressure estimated to be 20 mmHg. Aortic Valve Trisinus/trileaflet aortic valve. Normal aortic valve. Trivial aortic valve insufficiency. Pulmonic Valve The pulmonic valve is not well visualized. Trivial pulmonic valve insufficiency. Great Vessels Normal sized aortic root. Pericardium/Pleural No pericardial effusion. MMode/2D Measurements & Calculations LVIDd: 4.7 cm IVSd: 1.3 cm Ao root diam: 3.4 cm LVIDs: 3.0 cm LVPWd: 1.3 cm RVDd: 3.4 cm FS: 36.6 % LAV(MOD-bp): 52.8 ml LVAd ap4: 35.3 cm2 LVAd ap2: 36.4 cm2 LAV(MOD-bp) Indexed: 22.1 ml/m2 LVLd ap4: 9.1 cm LVLd ap2: 9.3 cm LAV(MOD-sp2): 67.4 ml EDV(MOD-sp4): 111.8 ml EDV(MOD-sp2): 114.7 ml LAV(MOD-sp4): 42.1 ml EDV(sp4-el): 116.4 ml EDV(sp2-el): 120.5 ml LVAs ap4: 21.1 cm2 LVAs ap2: 19.8 cm2 LVLs ap4: 7.7 cm LVLs ap2: 7.7 cm ESV(MOD-sp4): 49.9 ml ESV(MOD-sp2): 44.8 ml ESV(sp4-el): 48.9 ml ESV(sp2-el): 43.7 ml EF(MOD-sp4): 55.3 % EF(MOD-sp2): 60.9 % EF(sp4-el): 58.0 % SV(MOD-sp4): 61.8 ml SV(MOD-sp2): 69.9 ml SV(sp4-el): 67.5 ml LA dimension(2D): 3.0 cm LA A4 area: 16.2 cm2 RA A4 area: 14.2 cm2 Doppler Measurements & Calculations MV E max jhon: 44.6 cm/sec Lat Peak E' Jhon: 10.5 cm/sec Med Peak E' Jhon: 5.9 cm/sec MV A max jhon: 71.8 cm/sec E/E' lat: 4.2 E/E' med: 7.6 MV E/A: 0.62 Ao V2 max: 104.1 cm/sec AI max jhon: 308.5 cm/sec LV V1 max: 82.6 cm/sec Ao max P.3 mmHg AI max P.1 mmHg LV V1 max P.7 mmHg AI dec slope: 139.6 cm/sec2 AI P1/2t: 647.5 msec PA V2 max: 109.5 cm/sec TR max jhon: 205.2 cm/sec TR max P.9 mmHg ECHO/Echo Complete Interpretation Summary The study was technically difficult. Left ventricular systolic function is normal. The estimated ejection fraction is 60 %. Mild concentric left ventricular hypertrophy. Trivial mitral valve insufficiency. Trivial tricuspid valve insufficiency. Trivial aortic valve insufficiency. Trivial pulmonic valve insufficiency. Right ventricular systolic pressure estimated to be 20 mmHg. No evidence for diastolic dysfunction. Ordering Physician: Gino Hobson Referring Physician: Estrada Queen MD Performed By: Keyana Saunders RDCS
[2020-12-20 12:46] VITALS: PULSE 71; PULSE 73; PULSE 74; PULSE 79; PULSE 85; PULSE 88; PULSE 89; O2SAT 92; O2SAT 93; O2SAT 94; O2SAT 95
--- NOTE | 2020-12-21 05:28 | PCM.PSN.6M ---
PSN 6 Minute Walk Test 6 Minute Walk Test 6 Minute Walk Test: 6 Minute Walk Test PSN:6-Minute Walk Test Start: 12/20/20 12:45 Freq: Status: Active Protocol: [id number] Document 12/20/20 12:46 JEANCARLOS (Rec: 12/20/20 12:48 JEANCARLOS [id number]) 6 Minute Walk Test Date Performed 12/20/20 Time Performed 12:30 Height 6 ft 2 in Weight: 113.398 kg Weight in Pounds 250.[address]: Gino Hobson Assistive device used: None Pre-test Oxygen Delivery Method Room Air Pulse Ox (%) 94 Pulse Rate (60-100 beats/min) 71 Dyspnea Tati Scale (0-10) 0 Exertion Tati Scale (6-20) 6 1st minute Oxygen Delivery Method Room Air Pulse Ox (%) 94 Pulse Rate (60-100 beats/min) 74 2nd minute Oxygen Delivery Method Room Air Pulse Ox (%) 92 Pulse Rate (60-100 beats/min) 79 3rd minute Oxygen Delivery Method Room Air Pulse Ox (%) 92 Pulse Rate (60-100 beats/min) 89 4th minute Oxygen Delivery Method Room Air Pulse Ox (%) 92 Pulse Rate (60-100 beats/min) 85 5th minute Oxygen Delivery Method Room Air Pulse Ox (%) 92 Pulse Rate (60-100 beats/min) 88 6th minute Oxygen Delivery Method Room Air Pulse Ox (%) 93 Pulse Rate (60-100 beats/min) 88 Dyspnea Tati Scale (0-10) 1 Exertion Tati Scale (6-20) 12 Post-test Oxygen Delivery Method Room Air Pulse Ox (%) 95 Pulse Rate (60-100 beats/min) 73 Full Laps Walked 18 Partial Lap, Number of Tiles Walked 9 Total Distance Walked (ft) 1071 Interpretation Interpretation: Patient was able to ambulate 1071 feet over the course of 6 minutes on room air with no assistive devices or breaks. The patient experienced mild desaturation with an oxygen thor of 92%, but no significant tachycardia. These findings are consistent with a respiratory limitation exercise tolerance. Recommendations Recommendations: No supplemental oxygen is indicated at this time.
== END ==
PROVIDERS: PCP Family Medicine; Referring Provider Internal Medicine Critical Care Medicine; Visit Provider Internal Medicine Critical Care Medicine
DX: J47.9 Bronchiectasis, uncomplicated (principal); U07.1 COVID-19; J12.89 Other viral pneumonia; M06.9 Rheumatoid arthritis, unspecified
CPT/HCPCS: 93306; 94618

== ENCOUNTER → 2021-01-21 15:55 | Outpatient (CLI) | payer OTHER, SELFPAY ==
[2021-01-21 17:49] LABS: Absolute Lymphocyte Count 1.18 X10^3/uL (0.83-4.51); Absolute Neutrophil Count 3.9 X10^3/uL (2.0-7.7); Basophil# 0.05 X10^3/uL; Basophil% 0.8 % (0-1); Eosinophil# 0.17 X10^3/uL; Eosinophils% 2.9 % (0-5); Hematocrit 41.6 % (40-54); Lymphocyte # 1.18 X10^3/ul (0.83-4.51); Lymphocyte % 19.8 % (19-41); Mean Corp Hgb Conc 36.1 g/dL (32-36); Mean Corpuscular Volume 91.4 fL (80-94); Monocyte# 0.57 X10^3/uL; Monocyte% 9.6 % (0-10); NRBC Flagged by Analyzer 0 % (0-5); Neutrophil # 3.94 X10^3/uL (2.7-7.7); Neutrophil % 66.2 % (47-70); Platelet Count 192 K/mm3 (150-450); RBC Distribution Width CV 12.6 % (11.6-14.6); Red Blood Count 4.55 M/mm3 (4.6-6.2)
[2021-01-21 18:18] LABS: ALB/GLOB Ratio 1.1 RATIO (0.9-2.4); AST(SGOT) 27 U/L (15-37); Alanine Aminotransfer ALT/SGPT 53 U/L (16-61); Albumin, Serum 3.9 g/dL (3.2-5.0); Alkaline Phosphatase 98 U/L (45-117); Anion Gap 6 (5-15); BUN 24 mg/dL (7-18); BUN/Creat Ratio 19.4 RATIO (10-20); Calcium,Total 9.1 mg/dL (8.5-10.1); Chloride 106 mmol/L (98-107); Creatinine, Serum 1.24 mg/dL (0.70-1.30); EST Glomerular Filtration Rate 63 mL/min (>60); Est Glom Filt Rate - Afr Amer 76 mL/min (>60); Globulin 3.4 g/dL (2.2-4.2); Glucose 110 mg/dL (74-106); Potassium 3.5 mmol/L (3.5-5.1); Protein, Total 7.3 g/dL (6.4-8.2); Sodium Level 139 mmol/L (136-145)
== END ==
PROVIDERS: PCP Family Medicine; Referring Provider Internal Medicine Rheumatology; Visit Provider Internal Medicine Rheumatology
DX: M05.70 Rheumatoid arthritis with rheumatoid factor of unspecified site without organ or systems involvement (principal); K76.0 Fatty (change of) liver, not elsewhere classified; I10 Essential (primary) hypertension; C82.83 Other types of follicular lymphoma, intra-abdominal lymph nodes; Z79.899 Other long term (current) drug therapy
CPT/HCPCS: 36415; 80053; 85025

== ENCOUNTER → 2021-02-15 15:55 | Outpatient (CLI) | payer OTHER, SELFPAY ==
[2021-02-15 17:24] LABS: Absolute Lymphocyte Count 1.38 X10^3/uL (0.83-4.51); Absolute Neutrophil Count 3.9 X10^3/uL (2.0-7.7); Basophil# 0.05 X10^3/uL; Basophil% 0.8 % (0-1); Eosinophil# 0.16 X10^3/uL; Eosinophils% 2.6 % (0-5); Hematocrit 41.5 % (40-54); Hemoglobin 14.3 g/dL (13.0-16.5); Lymphocyte # 1.38 X10^3/ul (0.83-4.51); Lymphocyte % 22.7 % (19-41); Mean Corp Hgb Conc 34.5 g/dL (32-36); Mean Corpuscular Hgb 31.6 pg (27.0-32.0); Mean Corpuscular Volume 91.6 fL (80-94); Monocyte# 0.58 X10^3/uL; Monocyte% 9.5 % (0-10); NRBC Flagged by Analyzer 0 % (0-5); Neutrophil % 64.1 % (47-70); Platelet Count 189 K/mm3 (150-450); RBC Distribution Width CV 12.2 % (11.6-14.6); RBC Distribution Width SD 40.7 fl (35.1-43.9); Red Blood Count 4.53 M/mm3 (4.6-6.2); White Blood Count 6.1 K/mm3 (4.4-11.0)
[2021-02-15 17:37] LABS: ALB/GLOB Ratio 1.2 RATIO (0.9-2.4); AST(SGOT) 28 U/L (15-37); Alanine Aminotransfer ALT/SGPT 58 U/L (16-61); Alkaline Phosphatase 86 U/L (45-117); Anion Gap 8 (5-15); BUN 24 mg/dL (7-18); BUN/Creat Ratio 17.5 RATIO (10-20); Calcium,Total 9.1 mg/dL (8.5-10.1); Chloride 103 mmol/L (98-107); Creatinine, Serum 1.37 mg/dL (0.70-1.30); EST Glomerular Filtration Rate 56 mL/min (>60); Est Glom Filt Rate - Afr Amer 68 mL/min (>60); Globulin 3.3 g/dL (2.2-4.2); Glucose 85 mg/dL (74-106); Potassium 3.5 mmol/L (3.5-5.1); Protein, Total 7.3 g/dL (6.4-8.2); Sodium Level 140 mmol/L (136-145)
== END ==
PROVIDERS: PCP Family Medicine; Referring Provider Internal Medicine Rheumatology; Visit Provider Internal Medicine Rheumatology
DX: M05.70 Rheumatoid arthritis with rheumatoid factor of unspecified site without organ or systems involvement (principal); Z79.899 Other long term (current) drug therapy; K76.0 Fatty (change of) liver, not elsewhere classified; I10 Essential (primary) hypertension; C82.83 Other types of follicular lymphoma, intra-abdominal lymph nodes
CPT/HCPCS: 36415; 80053; 85025

== ENCOUNTER 2021-05-15 15:55 | Outpatient (CLI) | payer OTHER, SELFPAY ==
[2021-05-15 18:18] LABS: Absolute Lymphocyte Count 1.44 X10^3/uL (0.83-4.51); Absolute Neutrophil Count 3.6 X10^3/uL (2.0-7.7); Basophil# 0.06 X10^3/uL; Basophil% 1.1 % (0-1); Eosinophil# 0.15 X10^3/uL; Eosinophils% 2.6 % (0-5); Hemoglobin 14.3 g/dL (13.0-16.5); Lymphocyte # 1.44 X10^3/ul (0.83-4.51); Lymphocyte % 25.2 % (19-41); Mean Corp Hgb Conc 35.8 g/dL (32-36); Mean Corpuscular Hgb 31.9 pg (27.0-32.0); Mean Corpuscular Volume 89.3 fL (80-94); Monocyte# 0.49 X10^3/uL; Monocyte% 8.6 % (0-10); NRBC Flagged by Analyzer 0 % (0-5); Neutrophil # 3.55 X10^3/uL (2.7-7.7); Neutrophil % 62.1 % (47-70); Platelet Count 187 K/mm3 (150-450); RBC Distribution Width CV 12.6 % (11.6-14.6); Red Blood Count 4.48 M/mm3 (4.6-6.2); White Blood Count 5.7 K/mm3 (4.4-11.0)
[2021-05-15 18:45] LABS: BUN 22 mg/dL (7-18); EST Glomerular Filtration Rate 72 mL/min (>60); Glucose 112 mg/dL (74-106)
[2021-05-15 18:46] LABS: ALB/GLOB Ratio 1.3 RATIO (0.9-2.4); AST(SGOT) 21 U/L (15-37); Alanine Aminotransfer ALT/SGPT 51 U/L (16-61); Albumin, Serum 4.2 g/dL (3.2-5.0); Alkaline Phosphatase 88 U/L (45-117); Anion Gap 7 (5-15); Calcium,Total 9.2 mg/dL (8.5-10.1); Chloride 106 mmol/L (98-107); Est Glom Filt Rate - Afr Amer 87 mL/min (>60); Globulin 3.3 g/dL (2.2-4.2); Potassium 3.6 mmol/L (3.5-5.1); Protein, Total 7.5 g/dL (6.4-8.2); Sodium Level 139 mmol/L (136-145)
== END 2021-05-15 23:59 | disposition home or self-care (01) ==
LOC: MTLAB 15:57
PROVIDERS: PCP Family Medicine; Referring Provider Internal Medicine Rheumatology; Visit Provider Internal Medicine Rheumatology
DX: M05.70 Rheumatoid arthritis with rheumatoid factor of unspecified site without organ or systems involvement (principal); C82.83 Other types of follicular lymphoma, intra-abdominal lymph nodes; K76.0 Fatty (change of) liver, not elsewhere classified; I10 Essential (primary) hypertension; Z79.899 Other long term (current) drug therapy
CPT/HCPCS: 36415; 80053; 85025

== ENCOUNTER → 2021-11-13 | Outpatient (CLI) | payer OTHER, SELFPAY ==
[2021-11-13 17:42] LABS: Absolute Lymphocyte Count 1.86 X10^3/uL (0.83-4.51); Absolute Neutrophil Count 4.8 X10^3/uL (2.0-7.7); Basophil# 0.06 X10^3/uL; Basophil% 0.8 % (0-1); Eosinophil# 0.15 X10^3/uL; Hematocrit 41.7 % (40-54); Hemoglobin 14.5 g/dL (13.0-16.5); Lymphocyte # 1.86 X10^3/ul (0.83-4.51); Lymphocyte % 24.7 % (19-41); Mean Corp Hgb Conc 34.8 g/dL (32-36); Mean Corpuscular Volume 92.1 fL (80-94); Monocyte# 0.59 X10^3/uL; Monocyte% 7.8 % (0-10); NRBC Flagged by Analyzer 0 % (0-5); Neutrophil # 4.82 X10^3/uL (2.7-7.7); Neutrophil % 64.2 % (47-70); Platelet Count 175 K/mm3 (150-450); RBC Distribution Width CV 12.2 % (11.6-14.6); RBC Distribution Width SD 41.2 fl (35.1-43.9); Red Blood Count 4.53 M/mm3 (4.6-6.2); White Blood Count 7.5 K/mm3 (4.4-11.0)
[2021-11-13 18:03] LABS: ALB/GLOB Ratio 1.2 RATIO (0.9-2.4); AST(SGOT) 19 U/L (15-37); Alanine Aminotransfer ALT/SGPT 52 U/L (16-61); Alkaline Phosphatase 83 U/L (45-117); Anion Gap 8 (5-15); BUN 30 mg/dL (7-18); BUN/Creat Ratio 20.8 RATIO (10-20); Calcium,Total 9.1 mg/dL (8.5-10.1); Chloride 107 mmol/L (98-107); Creatinine, Serum 1.44 mg/dL (0.70-1.30); EST Glomerular Filtration Rate 53 mL/min (>60); Est Glom Filt Rate - Afr Amer 64 mL/min (>60); Globulin 3.3 g/dL (2.2-4.2); Glucose 101 mg/dL (74-106); Potassium 3.3 mmol/L (3.5-5.1); Protein, Total 7.3 g/dL (6.4-8.2); Sodium Level 141 mmol/L (136-145)
== END | disposition home or self-care (01) ==
LOC: MTLAB 15:27
PROVIDERS: PCP Family Medicine; Referring Provider Internal Medicine Rheumatology; Visit Provider Internal Medicine Rheumatology
DX: M05.70 Rheumatoid arthritis with rheumatoid factor of unspecified site without organ or systems involvement (principal); C82.83 Other types of follicular lymphoma, intra-abdominal lymph nodes; Z79.899 Other long term (current) drug therapy; K76.0 Fatty (change of) liver, not elsewhere classified; I10 Essential (primary) hypertension
CPT/HCPCS: 36415; 80053; 85025

== ENCOUNTER → 2022-02-06 | Outpatient (CLI) | payer OTHER, SELFPAY ==
[2022-02-06 18:04] LABS: Absolute Lymphocyte Count 1.57 X10^3/uL (0.83-4.51); Absolute Neutrophil Count 3.4 X10^3/uL (2.0-7.7); Basophil# 0.05 X10^3/uL; Basophil% 0.8 % (0-1); Eosinophil# 0.27 X10^3/uL; Eosinophils% 4.6 % (0-5); Hematocrit 40.9 % (40-54); Hemoglobin 14.6 g/dL (13.0-16.5); Lymphocyte # 1.57 X10^3/ul (0.83-4.51); Lymphocyte % 26.6 % (19-41); Mean Corp Hgb Conc 35.7 g/dL (32-36); Mean Corpuscular Hgb 31.9 pg (27.0-32.0); Mean Corpuscular Volume 89.5 fL (80-94); Mean Platelet Vol. 8.8 fl (6.2-12.0); Monocyte# 0.62 X10^3/uL; Monocyte% 10.5 % (0-10); NRBC Flagged by Analyzer 0 % (0-5); Neutrophil # 3.37 X10^3/uL (2.7-7.7); Platelet Count 189 K/mm3 (150-450); RBC Distribution Width CV 12.2 % (11.6-14.6); RBC Distribution Width SD 39.8 fl (35.1-43.9); Red Blood Count 4.57 M/mm3 (4.6-6.2); White Blood Count 5.9 K/mm3 (4.4-11.0)
[2022-02-06 18:30] LABS: ALB/GLOB Ratio 1.1 RATIO (0.9-2.4); AST(SGOT) 22 U/L (15-37); Alanine Aminotransfer ALT/SGPT 39 U/L (16-61); Albumin, Serum 3.9 g/dL (3.2-5.0); Alkaline Phosphatase 82 U/L (45-117); Anion Gap 10 (5-15); BUN 22 mg/dL (7-18); BUN/Creat Ratio 17.6 RATIO (10-20); Calcium,Total 9.4 mg/dL (8.5-10.1); Chloride 103 mmol/L (98-107); Creatinine, Serum 1.25 mg/dL (0.70-1.30); EST Glomerular Filtration Rate 62 mL/min (>60); Est Glom Filt Rate - Afr Amer 75 mL/min (>60); Globulin 3.4 g/dL (2.2-4.2); Glucose 120 mg/dL (74-106); Potassium 3.5 mmol/L (3.5-5.1); Protein, Total 7.3 g/dL (6.4-8.2); Sodium Level 137 mmol/L (136-145)
== END | disposition home or self-care (01) ==
LOC: MTLAB 15:38
PROVIDERS: PCP Family Medicine; Referring Provider Internal Medicine Rheumatology; Visit Provider Internal Medicine Rheumatology
DX: M05.70 Rheumatoid arthritis with rheumatoid factor of unspecified site without organ or systems involvement (principal); C82.83 Other types of follicular lymphoma, intra-abdominal lymph nodes; Z79.899 Other long term (current) drug therapy; K76.0 Fatty (change of) liver, not elsewhere classified; I10 Essential (primary) hypertension
CPT/HCPCS: 36415; 80053; 85025

== ENCOUNTER 2022-03-06 09:17 | Day surgery (SDC) | payer OTHER, SELFPAY ==
--- NOTE | 2022-03-06 09:59 | PCM.HP.BLA ---
History and Physical Date of Admission: 03/06/22 Intake Vital Signs ? 02/04/2209:04 Weight: 260 lb 2 oz BP 107/75 Blood Pressure Location Rt popliteal Position Sitting Respiration 17 Pulse 70 Pulse Source Monitor Temp 97.3 F L Temp Source Temporal Pulse Oximetry (%) 97 Oxygen Delivery Method room air Intake Visit Reasons:?Left Inguinal Hernia Chief Complaint: left inguinal hernia. Is patient in pain?: No Allergies No Known Allergies Allergy (Verified 02/04/22 09:07) Medications atenolol 25 mg tablet 25 mg PO DAILY heart 05/06/18 [History Confirmed 02/04/22] chlorthalidone 25 mg tablet 12.5 mg PO DAILY fluid 05/06/18 [History Confirmed 02/04/22] esomeprazole magnesium 40 mg capsule,delayed release (Nexium) 40 mg PO DAILY PRN PRN acid 05/12/18 [History Confirmed 02/04/22] amlodipine 5 mg tablet 5 mg PO DAILY bp 03/22/20 [History Confirmed 02/04/22] albuterol sulfate 90 mcg/actuation aerosol inhaler (Ventolin HFA) 2 puff inhalation Q4H PRN shortness of breath or wheezing #18 grams 01/09/21 [Rx Confirmed 02/04/22] hydroxychloroquine 200 mg tablet (Plaquenil) 200 mg PO BID 06/11/21 [History Confirmed 02/04/22] potassium chloride 10 mEq capsule,extended release 10 meq PO DAILY 12/10/21 [History Confirmed 02/04/22] PFSH Medical History?(Reviewed 12/10/21 @ 10:22 by Tarah Pruitt [employer], [employer]) Abdominal pain Epigastric pain Hypertension, accelerated Rheumatoid arthritis Right lower quadrant pain Right renal mass Surgical History? History of esophagogastroduodenoscopy (EGD) history of mesenteric biopsy Hx of cholecystectomy Hx of colonoscopy Hx of inguinal hernia repair Family History? Other No pertinent family history Social History? Smoking Status:? Former smoker HPI HPI HPI: Patient reports his left inguinal hernia has been growing and getting worse.? Is been there for several years.? Patient reports no nausea or vomiting.? He says it is becoming more uncomfortable.? He has no pain on the right side and he has had a hernia repair on the right side before. ROS General General: No weight change, appetite, fatigue, colon cancer, breast cancer or weakness HEENT HEENT: No difficulty swallowing, eye injury, eye surgery, swollen glands or hoarseness Endo Endocrine: No thyroid disease, diabetes mellitus, thyroid cancer, Hair loss, heat intolerance or cold intolerance Skin Skin: No rash or changing moles Breast Breast: No left breast lump, right breast lump, nipple discharge, breast pain, abnormal mammogram, abnormal US or breast enlargement Musc Musculoskeletal: Yes arthritis and rheumatoid arthritis; No back problems, gout or joint pain Cardio Cardiovascular: Yes high blood pressure; No murmur, pacemaker, heart disease, atrial fibrillation, heart attack, heart stent, palpitations, shortness of breat with exertion or chest pain Psych Psychiatric: No depression, anxiety or hearing voices Resp Respiratory: No shortness of breath, Yes sleep apnea, Yes cough, No COPD, No asthma, No emphysema and No wheezing Gastro Gastrointestinal: Yes abdominal pain, No nausea or vomiting, No diarrhea, No constipation, No blood in stool, Yes acid reflux, Yes hemorrhoids, No ulcers, No gallbladder problem and No black,tarry stools Patrick Hematologic: No blood thinners, No blood disorders, No bleeding, No anemia and No blood clots Neuro Neurologic: No system reviewed and no additional complaints, except as documented, No as per HPI, No abnormal gait, No abnormal hearing, No abnormal movements, No abnormal speech, No behavioral changes, No burning sensations, No confusion, No convulsions, No disequilibrium, No dizziness, No localized weakness, No frequent falls, No headache(s), No lack of coordination, No loss of vision, No memory loss, No numbness, No other visual disturbances, No radicular pain, No restless legs, No sensory deficit, No syncope, No tingling, No tremor(s), No weakness and No other Exam Const General: cooperative Orientation: alert and oriented x3 HENMT Head: normal to inspection Neck Neck: normal visual inspection and full ROM Chest Chest palpation & inspection: normal inspection of the chest Resp Effort & Inspection: normal respiratory effort Auscultation: clear to auscultation bilaterally Cardio Rate: regular rate Rhythm: regular rhythm GI Inspection: non-distended Palpation: soft, hernia indirect inguinal on the left and nontender Skin General: no rashes or lesions noted Neuro General: patient alert and patient oriented x3 Extrem General: full ROM Psych Appearance: grossly normal Mental Status: mental status grossly normal Assessment and Plan Assessment and Plan (1) Left inguinal hernia: ?Status:?Acute ?Plan: Patient has a left inguinal hernia.? It was present on CT scan 2 years ago and it has become larger and more uncomfortable for him.? I discussed robotic assisted laparoscopic left inguinal hernia repair with mesh with the patient.? I discussed the procedure in detail.? I discussed the risks including but not limited to bleeding, infection, injury to underlying organs such as the bowel, bladder, ureter.? I discussed the risk of recurrence and I discussed the benefits of mesh placement.? Patient understands the risks and is willing to proceed.? Patient has had a right inguinal hernia repair in the past and is having no issues on that side. Diallo Baires MD Pager: [facility] [address] [place] [address] [address] [place] [address] Office: I have examined the patient and the H&P has been reviewed. There are no clinical changes since date of exam.
[2022-03-06 10:06] VITALS: BP 117/89; PULSE 60; RESP 16; TEMP 36.7; O2SAT 96; BMI 33.1
[2022-03-06] MEDS: Lactated Ringers 1,000 ML 15 ML IV ×2 (10:13→12:15)
[2022-03-06] MEDS: Cefazolin 2 GM in 0.9% Normal Saline 100 ML IV (11:00)
[2022-03-06] MEDS: Bupivacaine 0.25% 30 ML Vial (12:22)
--- NOTE | 2022-03-06 12:34 | PCM.OPRPT ---
Report of Operation Date of Procedure: 03/06/22 Pre-Operative Diagnosis: Left inguinal hernia Post-Operative Diagnosis: Left inguinal hernia Surgery/Procedure Performed:: Robotic assisted laparoscopic left inguinal hernia repair with mesh Description of Procedure: Patient was brought back to the operating room and general anesthesia was induced. The abdomen was prepped and draped in usual sterile fashion. A midline incision was made superior to the umbilicus and deepened to the fascia was elevated and incised. Port was placed into the abdomen the abdomen was insufflated to 15 mmHg. Next the abdomen was inspected and the patient was placed into Trendelenburg position. The patient had an indirect left inguinal hernia. No hernia on the right. Under direct visualization the robot port was placed on the right abdominal sidewall as well as the left abdominal sidewall. The robot was then docked. Dissection of the peritoneum was taken in the left lower quadrant and then dissection was carried inferiorly until the contents in the hernia sac were reduced and then the dissection was carried more inferiorly. After the pubic tubercle was identified and the hernia was clear of contents a ProGrip mesh was unfolded over the left inguinal hernia and completely cover the hernia defect. Next the peritoneum was reapproximated using a running 3-0V lock suture. The ports were then removed and the air was allowed to desufflate from the abdomen. The midline fascia was closed with [id number] 0 Vicryl suture. The skin incisions were injected with local anesthetic and then closed with interrupted 4-0 Monocryl suture. Steri-Strips and bandages were applied. Scrotum was checked at the end the case contain both testicles. Patient was awoken and taken to PACU in stable condition and tolerated procedure well. Grafts/Implants Used: ProGrip mesh Admit VTE Documentation VTE Mechan Device Prophylaxis: SCD's
--- NOTE | 2022-03-06 12:36 | DCINST_ITS ---
Discharge Instructions Procedure Hernia Diet Discharge Diet: Light diet - advance as tolerated Activity Discharge Activity: May Not Drive (for 2-3 days or while taking narcotic pain meds.) and May Shower (with the bandage in place 1-2 days after surgery.) Lifting Restrictions: 20 pounds for 4 weeks. Additional Activity Instructions:: Climbing stairs is fine, walking is encouraged. Sitting in bed may be uncomfortable. Sitting up using your lateral muscles (sitting up sideways) is usually more comfortable. Do not drive, work heavy equipment of sign legal documents for 24 hours. If your hernia repair was an inguinal repair, you may have scrotal swelling, an ice pack and/or athletic support can provide more comfort. Pain medications may cause nausea, you should typically eat light foods as you take your pain medications. Pain medications may also cause constipation. If you have difficulty with this, discuss with your doctor. Dressing / Incision Call your doctor if your incision/area has: Continuous Slow Oozing, Sudden Increased Bleeding, Increased Pain/ Swelling, Increased Redness and Foul Smelling Discharge Call your doctor if you observe: Fever of 101 or Higher Suture Line Care: Avoid Pulling/Pushing and Avoid Pinching/Bending Remove Dressing in: 2 days (Remove clear bandages in 2 days, remove Steri-Strips in 7 to 10 days.) Cleanse incision/area with: Soap & Water Follow Up Care Please Follow Up With: Diallo Baires MD When: Please call to schedule 2 week follow up appointment. [phone] Test Results: Test results from this visit will be discussed in further detail at your follow- up appointment, if applicable. Discharge Plan Admission Attending Provider: Diallo Baires Primary Care Provider: Estrada Queen Discharge Orders/Prescriptions Prescriptions: New oxycodone 5 mg tablet 5 - 10 mg PO Q6H PRN (Reason: pain) 5 Days Qty: 14 0RF No Action chlorthalidone 25 mg tablet 12.5 mg PO DAILY atenolol 25 mg tablet 25 mg PO DAILY albuterol sulfate [Ventolin HFA] 90 mcg/actuation HFA aerosol inhaler 2 puff inhalation Q4H PRN (Reason: shortness of breath or wheezing) Qty: 18 6RF hydroxychloroquine [Plaquenil] 200 mg tablet 200 mg PO BID esomeprazole magnesium [Nexium] 40 MG capsule 40 mg PO DAILY PRN PRN (Reason: acid) amlodipine 5 MG tablet 5 mg PO DAILY Referrals / Follow Up: Estrada Queen MD [Primary Care Provider] - Disposition Disposition (needs filled in before D/C Order can be placed): Home, Self Care
[2022-03-06 12:46] VITALS: BP 106/72; BP 117/89; PULSE 62; RESP 16; TEMP 36.1; O2SAT 95
[2022-03-06 13:00] VITALS: BP 117/89; BP 90/50; PULSE 55; RESP 18; O2SAT 94
[2022-03-06 13:15] VITALS: BP 116/68; BP 117/89; PULSE 47; RESP 18; O2SAT 92
[2022-03-06 13:19] VITALS: BP 101/73; BP 117/89; PULSE 51; RESP 18; TEMP 36.1; O2SAT 93
[2022-03-06 14:35] VITALS: BP 117/89; BP 120/75; PULSE 48; RESP 16; TEMP 35.8; O2SAT 94
== END 2022-03-06 14:43 | disposition home or self-care (01) ==
LOC: SDC 09:19 → AC 09:20
PROVIDERS: PCP Family Medicine; Referring Provider Surgery; Visit Provider Surgery
PROC: 0YQ64ZZ Repair Left Inguinal Region, Percutaneous Endoscopic Approach (ICD-10-PCS; CPT 49650; principal; 2022-03-06 11:10)
DX: K40.90 Unilateral inguinal hernia, without obstruction or gangrene, not specified as recurrent (principal); Z87.891 Personal history of nicotine dependence; K21.9 Gastro-esophageal reflux disease without esophagitis; Z90.49 Acquired absence of other specified parts of digestive tract; G47.33 Obstructive sleep apnea (adult) (pediatric); Z99.89 Dependence on other enabling machines and devices; Z86.16 Personal history of COVID-19; I10 Essential (primary) hypertension
CPT/HCPCS: 49650; S2900; 00840; 93005; J7120; J2405

== ENCOUNTER → 2022-04-10 | Outpatient (CLI) | payer OTHER, SELFPAY ==
[2022-04-10 10:48] LABS: Anion Gap 8 (5-15); BUN 20 mg/dL (7-18); Chloride 103 mmol/L (98-107); Creatinine, Serum 1.11 mg/dL (0.70-1.30); EST Glomerular Filtration Rate 71 mL/min (>60); Est Glom Filt Rate - Afr Amer 86 mL/min (>60); Glucose 102 mg/dL (74-106); Potassium 3.5 mmol/L (3.5-5.1); Sodium Level 139 mmol/L (136-145)
== END | disposition home or self-care (01) ==
LOC: MFPLAB 09:04
PROVIDERS: PCP Family Medicine; Visit Provider Nurse Practitioner Family
DX: Z13.1 Encounter for screening for diabetes mellitus (principal)
CPT/HCPCS: 36415; 80048

== ENCOUNTER → 2022-05-08 | Outpatient (CLI) | payer OTHER, SELFPAY ==
[2022-05-08 17:48] LABS: Absolute Lymphocyte Count 1.72 X10^3/uL (0.83-4.51); Absolute Neutrophil Count 4.2 X10^3/uL (2.0-7.7); Basophil# 0.07 X10^3/uL; Eosinophil# 0.22 X10^3/uL; Eosinophils% 3.3 % (0-5); Hematocrit 41.8 % (40-54); Hemoglobin 14.8 g/dL (13.0-16.5); Lymphocyte # 1.72 X10^3/ul (0.83-4.51); Lymphocyte % 25.7 % (19-41); Mean Corp Hgb Conc 35.4 g/dL (32-36); Mean Corpuscular Hgb 32.1 pg (27.0-32.0); Mean Corpuscular Volume 90.7 fL (80-94); Mean Platelet Vol. 9.3 fl (6.2-12.0); Monocyte% 7.5 % (0-10); NRBC Flagged by Analyzer 0 % (0-5); Neutrophil # 4.17 X10^3/uL (2.7-7.7); Neutrophil % 62.2 % (47-70); Platelet Count 199 K/mm3 (150-450); RBC Distribution Width CV 12.6 % (11.6-14.6); RBC Distribution Width SD 41.1 fl (35.1-43.9); Red Blood Count 4.61 M/mm3 (4.6-6.2); White Blood Count 6.7 K/mm3 (4.4-11.0)
[2022-05-08 18:26] LABS: ALB/GLOB Ratio 1.4 RATIO (0.9-2.4); AST(SGOT) 27 U/L (15-37); Alanine Aminotransfer ALT/SGPT 39 U/L (16-61); Albumin, Serum 4.2 g/dL (3.2-5.0); Alkaline Phosphatase 89 U/L (45-117); Anion Gap 7 (5-15); BUN 24 mg/dL (7-18); BUN/Creat Ratio 17.5 RATIO (10-20); Calcium,Total 9.3 mg/dL (8.5-10.1); Chloride 106 mmol/L (98-107); Creatinine, Serum 1.37 mg/dL (0.70-1.30); EST Glomerular Filtration Rate 56 mL/min (>60); Est Glom Filt Rate - Afr Amer 67 mL/min (>60); Globulin 3.1 g/dL (2.2-4.2); Glucose 115 mg/dL (74-106); Potassium 3.8 mmol/L (3.5-5.1); Protein, Total 7.3 g/dL (6.4-8.2); Sodium Level 140 mmol/L (136-145)
== END | disposition home or self-care (01) ==
LOC: MTLAB 15:52
PROVIDERS: PCP Family Medicine; Referring Provider Internal Medicine Rheumatology; Visit Provider Internal Medicine Rheumatology
DX: Z79.899 Other long term (current) drug therapy (principal); C82.83 Other types of follicular lymphoma, intra-abdominal lymph nodes; K76.0 Fatty (change of) liver, not elsewhere classified; I10 Essential (primary) hypertension
CPT/HCPCS: 36415; 80053; 85025

== ENCOUNTER → 2022-08-21 | Outpatient (CLI) | payer OTHER, SELFPAY ==
[2022-08-21 15:49] LABS: Absolute Lymphocyte Count 1.46 X10^3/uL (0.83-4.51); Absolute Neutrophil Count 5.6 X10^3/uL (2.0-7.7); Basophil# 0.05 X10^3/uL; Basophil% 0.6 % (0-1); Eosinophil# 0.08 X10^3/uL; Hemoglobin 15.2 g/dL (13.0-16.5); Lymphocyte # 1.46 X10^3/ul (0.83-4.51); Mean Corp Hgb Conc 35.3 g/dL (32-36); Mean Corpuscular Hgb 32.3 pg (27.0-32.0); Mean Corpuscular Volume 91.3 fL (80-94); Mean Platelet Vol. 9.1 fl (6.2-12.0); Monocyte# 0.44 X10^3/uL; Monocyte% 5.7 % (0-10); NRBC Flagged by Analyzer 0 % (0-5); Neutrophil # 5.64 X10^3/uL (2.7-7.7); Neutrophil % 73.3 % (47-70); Platelet Count 204 K/mm3 (150-450); RBC Distribution Width CV 12.4 % (11.6-14.6); Red Blood Count 4.71 M/mm3 (4.6-6.2); White Blood Count 7.7 K/mm3 (4.4-11.0)
[2022-08-21 16:30] LABS: ALB/GLOB Ratio 1.3 RATIO (0.9-2.4); AST(SGOT) 25 U/L (15-37); Alanine Aminotransfer ALT/SGPT 56 U/L (16-61); Albumin, Serum 4.3 g/dL (3.2-5.0); Alkaline Phosphatase 96 U/L (45-117); Anion Gap 9 (5-15); BUN 17 mg/dL (7-18); BUN/Creat Ratio 13.9 RATIO (10-20); Calcium,Total 9.4 mg/dL (8.5-10.1); Chloride 108 mmol/L (98-107); Creatinine, Serum 1.22 mg/dL (0.70-1.30); EST Glomerular Filtration Rate 64 mL/min (>60); Est Glom Filt Rate - Afr Amer 77 mL/min (>60); Globulin 3.3 g/dL (2.2-4.2); Glucose 119 mg/dL (74-106); Potassium 4.2 mmol/L (3.5-5.1); Protein, Total 7.6 g/dL (6.4-8.2); Sodium Level 141 mmol/L (136-145)
== END | disposition home or self-care (01) ==
LOC: MTLAB 12:41
PROVIDERS: PCP Family Medicine; Referring Provider Internal Medicine Rheumatology; Visit Provider Internal Medicine Rheumatology
DX: M05.70 Rheumatoid arthritis with rheumatoid factor of unspecified site without organ or systems involvement (principal); C82.83 Other types of follicular lymphoma, intra-abdominal lymph nodes; Z79.899 Other long term (current) drug therapy; K76.0 Fatty (change of) liver, not elsewhere classified; I10 Essential (primary) hypertension
CPT/HCPCS: 36415; 80053; 85025

== ENCOUNTER → 2022-09-04 | Outpatient (CLI) | payer OTHER, SELFPAY ==
--- NOTE | 2022-09-04 13:34 | CT_ITS ---
INDICATION: RLQ DISCOMFORT EXAMINATION: CT ABDOMEN AND PELVIS WITH CONTRAST - CT Abdomen And Pelvis W/ Contrast Injection TECHNIQUE: Helically acquired images were obtained of the abdomen and pelvis with sagittal and coronal reconstructed images. Individualized dose optimization techniques were used for this CT. IV contrast dosage and agent: 98 mL of Isovue 300. Oral contrast: Contrast seen in the stomach and small bowel. No contrast in the colon. COMPARISON: None. FINDINGS: VESSELS: No abdominal aortic aneurysm or dissection. LIVER: No evidence of a mass. No intrahepatic or extrahepatic biliary duct dilation. Diffuse decreased attenuation. GALLBLADDER: Not visualized. PANCREAS: No focal solid or cystic mass. Mild mesenteric stranding and edema adjacent and inferior to the head of the pancreas. SPLEEN: Normal. ADRENAL GLANDS: Normal. KIDNEYS AND URETERS: Simple bilateral renal cysts with no follow-up recommended. No urinary tract stone. No hydronephrosis or hydroureter. No significant asymmetric perinephric stranding. URINARY BLADDER: Unremarkable. BOWEL: Diverticulosis with no evidence of diverticulitis. Appendix appears normal. No evidence of bowel obstruction. REPRODUCTIVE ORGANS: No evidence of a pelvic mass. PERITONEUM: No intraabdominal free fluid or free air. LYMPH NODES: No pathologically enlarged mesenteric or retroperitoneal lymph nodes. ABDOMINAL WALL: Fat-containing left inguinal hernia. Small fat-containing bilateral inguinal hernias with a small amount of fluid in the right inguinal hernia. BONES: No acute abnormality. LOWER CHEST: Visualized lung bases are clear. CT/Abdomen/Pelvis WITH Contrast IMPRESSION: 1. Mild mesenteric stranding and edema adjacent and inferior to the head of the pancreas. Correlate clinically for possible acute pancreatitis. If pancreatitis is not correlated clinically, recommend follow-up imaging with dedicated MRI versus CT with dedicated pancreas protocol. 2. No acute abnormality in the right lower quadrant and a normal-appearing appendix. 3. Fatty infiltration of the liver. Electronically Signed: Ike James DO at 0:32 EDT ,
== END | disposition home or self-care (01) ==
LOC: CT 13:32
PROVIDERS: PCP Family Medicine; Referring Provider Family Medicine; Visit Provider Family Medicine
DX: R10.31 Right lower quadrant pain (principal)
CPT/HCPCS: 74177; Q9967

== ENCOUNTER → 2022-09-15 | Outpatient (CLI) | payer OTHER, SELFPAY ==
--- NOTE | 2022-09-15 16:07 | MRI_ITS ---
EXAM: MR ABDOMEN WITHOUT AND WITH INTRAVENOUS CONTRAST CLINICAL INDICATION: abnormal CT of the pancreas TECHNIQUE: Multiplanar and multisequence MR images of the abdomen without and with intravenous contrast. CONTRAST: COMPARISON: No relevant prior studies available. FINDINGS: LOWER THORAX: Unremarkable. No pleural effusion. LIVER: Unremarkable. Normal morphology. No focal mass. GALLBLADDER AND BILE DUCTS: Cholecystectomy. No intra- or extrahepatic biliary ductal dilation. PANCREAS: Small cyst measuring 6 x 9 x 5 mm in the head of the pancreas. No peripancreatic edema. SPLEEN: Unremarkable. Normal size without focal cystic or solid mass. ADRENALS: Unremarkable. No nodules. KIDNEYS AND URETERS: Bilateral renal cysts. Normal renal size and position. No hydronephrosis. INTRAPERITONEAL SPACE: Unremarkable. No ascites or other fluid collection. No free air. VASCULATURE: Unremarkable. Abdominal aorta is non-dilated. LYMPH NODES: No enlarged lymph nodes. MRI/MRI Abd WITH and W/O Contrast IMPRESSION: 1. Small cyst measuring 6 x 9 x 5 mm in the head of the pancreas. No peripancreatic inflammatory changes. 2. Cholecystectomy. 3. Bilateral renal cysts. No follow-up imaging necessary. RECOMMENDATIONS: Small cyst measuring 6 x 9 x 5 mm in the head of the pancreas. Recommend a contrast-enhanced, pancreas-protocol abdominal MR in 1 year. Electronically Signed: Tee Reynoso MD at 6:20 EDT ,
== END | disposition home or self-care (01) ==
LOC: MRI 16:03
PROVIDERS: PCP Family Medicine; Referring Provider Family Medicine; Visit Provider Family Medicine
DX: K85.90 Acute pancreatitis without necrosis or infection, unspecified (principal)
CPT/HCPCS: 74183; A9575; A4216

== ENCOUNTER 2022-10-05 21:08 | Emergency (ER) | payer OTHER, SELFPAY ==
[2022-10-05 21:09] VITALS: BP 123/90; PULSE 85; RESP 16; TEMP 36.1; O2SAT 96; BMI 32.1
--- NOTE | 2022-10-05 21:23 | EKG12_ITS ---
Test Reason : PALPITATIONS Blood Pressure : / mmHG Vent. Rate : 070 BPM Atrial Rate : 070 BPM P-R Int : 186 ms QRS Dur : 096 ms QT Int : 396 ms P-R-T Axes : 022 -02 040 degrees QTc Int : 427 ms Normal sinus rhythm Normal ECG Confirmed by MIKE STOLL, TEMITOPE ([id number]), newspaper or periodical editor KARUNA FARIAS ([id number]) on 10/06/2022 12:33:27 PM Referred By: CAMILO Confirmed By:TEMITOPE MCKEON MD
--- NOTE | 2022-10-05 21:37 | EDS_ITS ---
HPI History of Present Illness Chief Complaint: Palpitations Detail of Chief Complaint: Palpitations associated with lightheadedness, bilateral jaw pain and tightn Informant: patient Onset/Context/Timing Onset: Today (Onset 11 AM and lasted until approximately 3 PM) Context: Sudden Onset Timing: Intermittent Quality: Palpitations and chest with heart rate of 170+ and discomfort in the jaw an Location: Chest and neck Current Severity: Gone Maximum Severity: Moderate Worsened by: Nothing Relieved by: Nothing Associated Symptoms Associated Symptoms: Lightheadedness, diaphoresis Narrative Narrative: Patient is a 62-year-old male with history of hypertension, rheumatoid arthritis, obstructive sleep apnea, COVID-pneumonia, follicular lymphoma grade one of the intra-abdominal lymph nodes status postchemotherapy who presents because of lightheadedness associated with rapid heartbeat up to 170+. He denies history of atrial fibrillation or PSVT. When he had the rapid heart rate he complained of lightheadedness and was slightly sweaty and felt he was going to pass out. He also complained of tightness in his throat and bilateral jaw pain. reminded him that he also had pain in the posterior neck region. There was no associated shortness of breath. He did feel nauseous. He denies history of coronary artery disease. He denies recent illness. He denies thyroid disease or heat or cold intolerance. He denies night sweats. He has had recent weight loss because of increased activity. He is a former smoker. Prior similar symptoms: Yes (He had palpitations with rapid heartbeat 2 to 3 weeks ago. He had no other) Recent Illness/Hospitalization: No PFSH PFSH Medical History Abdominal pain Back pain Cancer Cardiology follow-up encounter COVID CPAP (continuous positive airway pressure) dependence Epigastric pain Fatty liver Former smoker Gastric reflux History of echocardiogram History of pain when walking History of steroid therapy Hypertension Hypertension, accelerated Leg cramps Loss of hearing Rheumatoid arthritis Rheumatoid arthritis Right lower quadrant pain Right renal mass Wears glasses Home Medications atenolol 25 mg tablet 25 mg PO DAILY heart 05/06/18 [History Last Taken 03/06/22] chlorthalidone 25 mg tablet 12.5 mg PO DAILY fluid 05/06/18 [History Last Taken 03/21/20] esomeprazole magnesium 40 mg capsule,delayed release (Nexium) 40 mg PO DAILY PRN PRN acid 05/12/18 [History Last Taken 03/06/22] amlodipine 5 mg tablet 5 mg PO DAILY bp 03/22/20 [History Last Taken 03/06/22] albuterol sulfate 90 mcg/actuation aerosol inhaler (Ventolin HFA) 2 puff inhalation Q4H PRN shortness of breath or wheezing #18 grams 01/09/21 [Rx Last Taken Unknown] hydroxychloroquine 200 mg tablet (Plaquenil) 200 mg PO BID 06/11/21 [History Last Taken Unknown] Allergy/AdvReac Type Severity Reaction Status Date / Time No Known Allergies Allergy Verified 09/11/22 14:18 Family History Other No pertinent family history Surgical History History of cardiac catheterization History of esophagogastroduodenoscopy (EGD) History of left inguinal hernia repair (~03/2022) history of mesenteric biopsy Hx of cholecystectomy Hx of colonoscopy Hx of inguinal hernia repair Social History (Updated 10/05/22 @ 21:[address] Felix Fung MD) household members: spouse Smoking Status: Former smoker substance use type: does not use ROS ROS ED Constitutional Constitutional ED: Reports weight loss; Denies chills, fever(s), subjective or sweats Eyes Eyes: Denies blurry vision, change in vision or diplopia ENT ENT ED: Denies ear pain, rhinorrhea or sore throat Cardiovascular Cardiovascular: Reports chest pain, palpitations and racing heartbeat; Denies orthopnea or paroxysmal nocturnal dyspnea Respiratory/Chest Respiratory/Chest: Denies cough, dyspnea, dyspnea on exertion, orthopnea or paroxysmal nocturnal dyspnea Gastrointestinal Gastrointestinal: Reports nausea; Denies abdominal pain, constipation, diarrhea, melena or vomiting Genitourinary Genitourinary ED: Denies dysuria, hematuria or urinary frequency Musculoskeletal Musculoskeletal: Reports neck pain; Denies arthralgias, back pain or myalgias Integumentary Denies rash Neurologic Neurologic: Denies headache(s) Endocrine Endocrinology: Denies cold intolerance or heat intolerance Hematologic/Lymphatic Hematologic/Lymphatic: Reports systems reviewed and no addt'l complaints, except as documented EXAM Physical Exam Const Vital Signs: 10/05/22 21:09 10/05/22 21:36 10/05/22 21:37 Temperature 96.9 F L Temperature Source Temporal Pulse Rate 85 Respiratory Rate 16 Respiratory Effort Normal Non-Labored Normal Non-Labored Respiratory Pattern Normal Blood Pressure 123/90 H Blood Pressure Mean 101 Pulse Ox 96 Oxygen Delivery Method Room Air 10/05/22 23:09 10/05/22 22:09 Temperature Temperature Source Pulse Rate 64 68 Respiratory Rate 16 Respiratory Effort Respiratory Pattern Blood Pressure 107/77 Blood Pressure Mean 87 Pulse Ox 99 Oxygen Delivery Method Room Air Positive well nourished and well developed General Appearance ED: well developed and NAD; Negative for cyanotic, diaphore tic or pallor HEENT Reports moist mucous membranes HEENT Narrative: Head is atraumatic normocephalic. Ears normal. Nares patent. Mucosa moist. Eyes PERRL and EOMs intact bilaterally General Eye ED: Negative for pale conjunctiva or scleral icterus Neck no lymphadenopathy, supple and no JVD Chest Wall inspection of chest normal Resp normal respiratory effort and clear to auscultation bilaterally Cardio regular rate, regular rhythm, S1 normal heart sound, S2 normal heart sound and no murmurs GI normal to inspection, nondistended, normoactive bowel sounds, non-tender, non- distended and no masses; Negative for hepatosplenomegaly Auscultation: normoactive bowel sounds Palpation: soft Back/Spine no CVA tenderness Extremity normal to inspection Extremity Narrative: There is no asymmetry, swelling, discoloration, leg vein distention, palpable cords or tenderness along the distribution of the deep venous system. Neuro oriented x3, CN's II-XII intact bilaterally and no sensory deficits noted Sensorium / Orientation: alert Motor Exam: strength 5/5 throughout Psych mental status grossly normal Skin no rashes or lesions noted, no wounds and skin turgor normal General Skin Exam: Negative for jaundice or pallor MDM MDM MDM Narrative Medical decision making narrative: Suspect patient had a bout of atrial fibrillation. This may also represent PSVT. Because he complained of tightness in his throat and jaw pain will obtain troponin to assess for cardiac ischemia. Since the onset of his symptoms was 11 hours ago lasted for hours 1 troponin should be sufficient if normal. BMP was obtained to assess H&H. TSH to rule out thyroid disease. BMP to assess for electrolyte abnormalities specifically hypokalemia. Patient's [id number] score is 2. This is presuming patient has had intermittent atrial fibrillation. Recommendation is aspirin. Will refer patient to Dr. Shiv Crane. is concerned that he cannot take aspirin since he is taking Plaquenil. Looked up interactions with Plaquenil and aspirin was not mention. Lab Data Attestation: I reviewed the patient's lab results. Lab results narrative: CBC is. Basic metabolic panel shows a creatinine 1.23 with a GFR of 63. TSH was normal at 2.24. This was not checked since 2019. Troponin is normal with 4 hours of pain occurred 11 hours prior to presentation. Therefore a 2-hour troponin was not obtained. Labs: Laboratory Results - last 24 hr 10/05/22 21:33 WBC 7.9 RBC 4.43 L Hgb 14.0 Hct 40.7 MCV 91.9 MCH 31.6 MCHC 34.4 RDW Std Deviation 42.0 RDW Coeff of [place] 12.5 Plt Count MPV 10.0 Immature Gran % (Auto) 0.300 Neut % (Auto) 67.4 Lymph % (Auto) 20.7 Schuyler % (Auto) 8.3 Eos % (Auto) 2.7 Baso % (Auto) 0.6 Absolute Neuts (auto) 5.3 Absolute Lymphs (auto) 1.63 Nucleated RBC % 0 Differential Comment SCANNED Platelet Estimate ADEQUATE Sodium 134 L Potassium 4.5 Chloride 107 Carbon Dioxide 23.0 Anion Gap 4 L BUN 16 Creatinine 1.23 Estim Creat Clear Calc 71.47 Est GFR (MDRD) Af Amer 76 Est GFR (MDRD) Non-Af 63 BUN/Creatinine Ratio 13.0 Glucose 101 Calcium 8.8 Troponin I High Sens 26 TSH 2.24 EKG Initial EKG: Attestation: I personally reviewed and interpreted this EKG as follows: Interpretation: Sinus Rhythm (Rate is 70. EKG is normal. AL interval is 186 ms. Cures duration 96 ms. QT duration 396 ms. Fortine is normal.) Discharge Plan Triage Chief Complaint: Palpitations ED Provider: Felix Fung Dx/Rx/DC Orders Clinical Impression: Tachycardia Instructions: ED AFIB, ED Palpitations Prescriptions: No Action chlorthalidone 25 mg tablet 12.5 mg PO DAILY atenolol 25 mg tablet 25 mg PO DAILY albuterol sulfate [Ventolin HFA] 90 mcg/actuation HFA aerosol inhaler 2 puff inhalation Q4H PRN (Reason: shortness of breath or wheezing) Qty: 18 6RF hydroxychloroquine [Plaquenil] 200 mg tablet 200 mg PO BID esomeprazole magnesium [Nexium] 40 MG capsule 40 mg PO DAILY PRN PRN (Reason: acid) amlodipine 5 MG tablet 5 mg PO DAILY Primary Care Provider: Estrada Queen Referrals: Shiv Crane MD [Med Staff - Active Staff] - 3-5 Days (Patient presents with palpitations heart rate greater than 170 on multiple occasions. Concern patient is having paroxysmal atrial fibrillation. Patient was started on aspirin.) Estrada Queen MD [Primary Care Provider] - Disposition Disposition: Home, Self Care
[2022-10-05 21:40] LABS: Absolute Lymphocyte Count 1.63 X10^3/uL (0.83-4.51); Absolute Neutrophil Count 5.3 X10^3/uL (2.0-7.7); Basophil# 0.05 X10^3/uL; Basophil% 0.6 % (0-1); Eosinophil# 0.21 X10^3/uL; Eosinophils% 2.7 % (0-5); Hematocrit 40.7 % (40-54); Lymphocyte # 1.63 X10^3/ul (0.83-4.51); Lymphocyte % 20.7 % (19-41); Mean Corp Hgb Conc 34.4 g/dL (32-36); Mean Corpuscular Hgb 31.6 pg (27.0-32.0); Mean Corpuscular Volume 91.9 fL (80-94); Monocyte# 0.65 X10^3/uL; Monocyte% 8.3 % (0-10); NRBC Flagged by Analyzer 0 % (0-5); Neutrophil # 5.31 X10^3/uL (2.7-7.7); Neutrophil % 67.4 % (47-70); POSITIVE COUNT YES; RBC Distribution Width CV 12.5 % (11.6-14.6); Red Blood Count 4.43 M/mm3 (4.6-6.2); White Blood Count 7.9 K/mm3 (4.4-11.0)
[2022-10-05 21:58] LABS: Differential Indicated SCAN CRITERIA MET
[2022-10-05 21:59] LABS: Differential Comment SCANNED; Platelet Estimate ADEQUATE (ADEQ)
[2022-10-05 22:08] LABS: Anion Gap 4 (5-15); BUN 16 mg/dL (7-18); Calcium,Total 8.8 mg/dL (8.5-10.1); Chloride 107 mmol/L (98-107); Creatinine, Serum 1.23 mg/dL (0.70-1.30); EST Glomerular Filtration Rate 63 mL/min (>60); Est Glom Filt Rate - Afr Amer 76 mL/min (>60); Estimated Creatinine Clearance 71.47 ml/min; Glucose 101 mg/dL (74-106); Potassium 4.5 mmol/L (3.5-5.1); Sodium Level 134 mmol/L (136-145); Thyroid Stim Hormone (TSH) 2.24 uIU/mL (0.358-3.74); Troponin-I HS 26 pg/mL (3.0-78.0)
[2022-10-05 22:09] VITALS: PULSE 68
[2022-10-05 23:09] VITALS: BP 107/77; PULSE 64; RESP 16; O2SAT 99
[2022-10-06 00:12] VITALS: BP 107/68; PULSE 71; RESP 16; O2SAT 98
== END 2022-10-06 00:13 | disposition home or self-care (01) ==
PROVIDERS: Emergency Provider Emergency Medicine; PCP Family Medicine; Visit Provider Emergency Medicine
DX: R00.0 Tachycardia, unspecified (principal); M06.9 Rheumatoid arthritis, unspecified; I10 Essential (primary) hypertension; Z87.891 Personal history of nicotine dependence; R68.84 Jaw pain; Z86.16 Personal history of COVID-19; G47.33 Obstructive sleep apnea (adult) (pediatric)
CPT/HCPCS: 80048; 84443; 84484; 85025; 93005; 99284; A4216

== ENCOUNTER 2022-11-07 12:51 | Observation (INO) | payer OTHER, SELFPAY ==
[2022-11-06 08:13] VITALS: BMI 68.8
[2022-11-06 12:29] LABS: Color, Urine Yellow (Yellow); Glucose, Dipstick Normal (Normal); Ketone-Dipstick Negative (Negative); Leukocyte Esterase-Dipstick Negative /ul (Negative); Nitrite-Dipstick Negative (Negative); Occult Blood-Urine Negative /ul (Negative); Protein-Dipstick Negative (Negative); Urine Bilirubin Dipstick Negative (Negative); Urine Clarity Clear (Clear); Urine Urobilinogen Normal (Normal)
[2022-11-06 12:31] LABS: Absolute Lymphocyte Count 1.58 X10^3/uL (0.83-4.51); Basophil# 0.06 X10^3/uL; Basophil% 0.8 % (0-1); Eosinophil# 0.18 X10^3/uL; Eosinophils% 2.5 % (0-5); Hematocrit 40.4 % (40-54); Hemoglobin 13.9 g/dL (13.0-16.5); Lymphocyte # 1.58 X10^3/ul (0.83-4.51); Lymphocyte % 21.6 % (19-41); Mean Corp Hgb Conc 34.4 g/dL (32-36); Mean Corpuscular Hgb 31.2 pg (27.0-32.0); Mean Corpuscular Volume 90.8 fL (80-94); Mean Platelet Vol. 8.8 fl (6.2-12.0); Monocyte% 6.8 % (0-10); NRBC Flagged by Analyzer 0 % (0-5); Neutrophil # 4.96 X10^3/uL (2.7-7.7); Neutrophil % 67.8 % (47-70); Platelet Count 204 K/mm3 (150-450); RBC Distribution Width CV 12.5 % (11.6-14.6); RBC Distribution Width SD 41.3 fl (35.1-43.9); Red Blood Count 4.45 M/mm3 (4.6-6.2); White Blood Count 7.3 K/mm3 (4.4-11.0)
[2022-11-06 13:16] LABS: ALB/GLOB Ratio 0.9 RATIO (0.9-2.4); AST(SGOT) 20 U/L (15-37); Alanine Aminotransfer ALT/SGPT 32 U/L (16-61); Albumin, Serum 3.6 g/dL (3.2-5.0); Alkaline Phosphatase 91 U/L (45-117); Anion Gap 6 (5-15); BUN 14 mg/dL (7-18); BUN/Creat Ratio 12.3 RATIO (10-20); CRP 6.48 mg/L (0.0-3.0); Calcium,Total 8.9 mg/dL (8.5-10.1); Chloride 105 mmol/L (98-107); Creatinine, Serum 1.14 mg/dL (0.70-1.30); EST Glomerular Filtration Rate 69 mL/min (>60); Est Glom Filt Rate - Afr Amer 83 mL/min (>60); Estimated Creatinine Clearance 77.11 ml/min; Globulin 3.8 g/dL (2.2-4.2); Glucose 99 mg/dL (74-106); Lipase 32 U/L (13-75); Potassium 3.3 mmol/L (3.5-5.1); Protein, Total 7.4 g/dL (6.4-8.2); Sodium Level 137 mmol/L (136-145)
[2022-11-07 11:06] VITALS: BMI 31.1
[2022-11-07] MEDS: Cefazolin 2 GM in 0.9% Normal Saline 100 ML IV (12:00)
[2022-11-07 13:27] VITALS: BP 133/68; PULSE 80; RESP 14; TEMP 36.7; O2SAT 96
[2022-11-07 15:45] VITALS: BP 100/74; PULSE 80; RESP 16; TEMP 36.6; O2SAT 95
[2022-11-07] MEDS: Hydroxychloroquine 200 MG Tablet PO (17:49)
[2022-11-07 17:51] VITALS: BP 106/65; PULSE 80; RESP 14; TEMP 37.1; O2SAT 93
[2022-11-07] MEDS: Acetaminophen 325 MG Tablet 650 MG PO (18:50)
[2022-11-07 20:43] VITALS: BP 107/80; PULSE 86; RESP 16; TEMP 36.4; O2SAT 93
[2022-11-08 03:20] VITALS: BP 111/65; PULSE 85; RESP 16; TEMP 36.9; O2SAT 91
[2022-11-08] MEDS: Acetaminophen 325 MG Tablet 650 MG PO (03:25)
--- NOTE | 2022-11-08 05:10 | RAD_ITS ---
STUDY: X-RAY CHEST REASON FOR EXAM: Male, 62 years old. Pacemaker placement TECHNIQUE: 2 PA and lateral views of the chest. COMPARISON: None. FINDINGS: A left subclavian pacemaker has been placed, leads in satisfactory position, no pneumothorax. EKG leads overlie the chest The lungs are clear and expanded. There is no demonstrated pleural abnormality. Normal size heart. Normal mediastinum and dennis. Normal visualized pulmonary arteries. Normal visualized aortic arch and descending thoracic aorta. Normal visualized thoracic spine. Normal visualized ribs, clavicles, and shoulders. There is no demonstrated abnormality of the visualized soft tissue structures of the upper abdomen. RAD/Chest PA and Lateral IMPRESSION: No acute pulmonary process Left subclavian pacemaker in satisfactory position Electronically Signed: John Mcgee MD at 10:17 EDT ,
[2022-11-08 09:15] VITALS: BP 115/81; PULSE 93; RESP 16; TEMP 36.7; O2SAT 94
[2022-11-08] MEDS: amLODIPine 5 MG Tablet PO (09:17)
[2022-11-08] MEDS: Hydroxychloroquine 200 MG Tablet PO (09:17)
[2022-11-08] MEDS: Chlorthalidone 50 MG Tablet 12.5 MG PO (09:17)
[2022-11-08] MEDS: Atenolol 25 MG Tablet PO (09:17)
[2022-11-08] MEDS: Aspirin E.C. 81 MG Tablet PO (09:17)
--- NOTE | 2022-11-08 11:34 | PCM.PN.CARD ---
Subjective Subjective Patient seen and evaluated. Appears to be doing better. Objective Data Vital Signs: Vital Signs Temp Pulse Resp BP Pulse Ox O2 Del Method 98.1 F 93 16 115/81 H 94 Room Air 11/08/22 09:15 11/08/22 09:15 11/08/22 09:15 11/08/22 09:15 11/08/22 09:15 11/08/22 09:15 Oxygen Delivery Method Room Air Weight: 243 lb Body Mass Index (BMI) 31.1 Intake & Output: Intake and Output for Last 24 Hours 11/06/22 11/07/22 11/08/22 23:59 23:59 23:59 Intake Total 485 / 485 Output Total 800 / 800 450 / 450 Balance -315 / -315 -450 / -450 Lab / Micro Data 11/06/22 11:30 11/06/22 11:31 Cardiology Labs/Tests Rhythm: EKG: ECHO: Stress Test: Cardiac Cath: PCI: CT Surgery: Holter monitor: EPS: PPM: CXR: Chest CT Scan: Radiography Diagnostic Testing: Radiology Impression Chest X-Ray 11/08/22 05:10 IMPRESSION: No acute pulmonary process Left subclavian pacemaker in satisfactory position Electronically Signed: John Mcgee MD at 10:17 EDT , Physical Exam Const alert, oriented x3 and no apparent distress General Appearance: cooperative HEENT hearing grossly normal bilaterally Head and Scalp: atraumatic Eyes EOMs intact bilaterally Neck General: normal visual inspection Chest inspection of chest normal and palpation of chest normal Resp normal respiratory effort Auscultation: clear to auscultation bilaterally Cardio regular rate, regular rhythm, S1 normal heart sound and S2 normal heart sound Jugular Venous Distention: JVD GI normal to inspection, nondistended, normoactive bowel sounds Extremity normal capillary refill and no pedal edema Peripheral Pulses: Yes pulses 2+ throughout and femoral pulses present Skin no rashes or lesions noted Neuro oriented x3 and CN's II-XII intact bilaterally Psych Appearance: grossly normal and appropriate Assessment & Plan Assessment/Plan (1) Presence of cardiac pacemaker: PLAN: Patient is status post permanent pacemaker implantation. Pacemaker interrogated today appears to be functioning well. Plan to be to continue current medical therapy and follow-up in the pacer clinic. Chest x-ray demonstrates no abnormality in good positioning. (2) Tachy-naif syndrome: PLAN: Patient with a history of tachybradycardia syndrome. We will plan on continuing current medical therapy and anticoagulation.
--- NOTE | 2022-11-08 11:36 | DCINST_ITS ---
Discharge Instructions Diet Discharge Diet: No restrictions (as you feel able. No excessive stretching. No lifting your arm over your head (keep elbow below shoulder level) until seen for your pacemaker check. Do not lift your elbow away from your side until you are seen for your first visit. Keep the arm sling on if it helps remind you not to lift your arm.) Activity Discharge Activity: May Not Drive May shower in (days): 2 Additional Activity Instructions:: May shower or bathe on [day 3]. Do not scrub the incision or soak in the tub. Just wash with soap and let the water run over the incision. Gently pat dry with towel. Medications: Take your pain medication as directed. Refer to your discharge instruction sheet for a list of medications you are to take. Dressing / Incision Call your doctor if your incision/area has: Continuous Slow Oozing, Sudden Increased Bleeding, Increased Pain/ Swelling, Increased Redness, Foul Smelling Discharge and Swelling at the incision site Call your doctor if you observe: Fever of 101 or Higher, Shortness of breath, Dizziness, Fainting spells, Swelling in the ankles, Chest pain, Prolonged hiccupping and Increased palpitations (irregular heartbeat) Suture Line Care: Avoid Pulling/Pushing and Avoid Pinching/Bending Remove Dressing in: 4 days Cleanse incision/area with: Keep Dressing Clean & Dry Additional Dressing/Incision Instructions:: When dressing is removed, wash and dry incision. Keep covered with a light bandage if it is rubbing against your clothing. Do not cover the incision with an airtight bandage. Change the bandage daily. Do not remove steri strips. The strips will fall off on their own. Follow Up Care Please Follow Up With: Shiv Crane MD When: Pacer follow-up on November 14, 2022 at 11 AM Test Results: Test results from this visit will be discussed in further detail at your follow- up appointment, if applicable. Discharge Plan Admission Admit Date/Time: 11/07/22 12:51 Attending Provider: Shiv Crane Primary Care Provider: Estrada Queen Discharge Orders/Prescriptions Prescriptions: No Action atenolol 25 mg tablet 25 mg PO DAILY chlorthalidone 25 mg tablet 12.5 mg PO DAILY hydroxychloroquine [Plaquenil] 200 mg tablet 200 mg PO BID aspirin 81 mg tablet,delayed release (DR/EC) 81 mg PO DAILY esomeprazole magnesium [Nexium] 40 MG capsule 40 mg PO DAILY PRN PRN (Reason: acid) amlodipine 5 MG tablet 5 mg PO DAILY potassium chloride 20 mEq tablet extended release 20 meq PO DAILY Referrals / Follow Up: Estrada Queen MD [Primary Care Provider] - Disposition Disposition (needs filled in before D/C Order can be placed): Home, Self Care
--- NOTE | 2022-11-10 13:08 | CL.IE_ITS ---
Patient: CAROLYN GOVEA Study Date: 11/07/2022 Performing: Shiv Crane MD : 1960 Age: 62 Gender: male PROCEDURES PERFORMED [id number])INITIAL PACER INSERT+DUAL LEADS INDICATIONS Je/Tachy Syndrome Atrial fibrillation and complete heart block PROCEDURE DETAILS The patient was brought to the Catheterization Lab in the postabsorptive nonsedated state. Informed consent was obtained prior to the procedure. Local anesthetic was given subcutaneously to the left upper chest area with Lidocaine 2%. Access was achieved and a guidewire was advanced into the left subclavian vein. Incision was made to the left upper chest. A peel-away sheath was inserted into the left subclavian vein. PPM ventricular lead was inserted / positioned to right ventricular apex. PPM ventricular lead testing performed. PPM ventricular lead testing performed. A peel-away sheath was inserted into the left subclavian vein. PPM atrial lead was inserted / positioned to the right atrial appendage. PPM atrial lead testing performed. The Atrial lead sutured in place with 2-0 Silk. The Ventricular PM lead sutured in place with 2-0 Silk. Device pocket was irrigated with antibiotic-ancef. PPM generator was attached to the lead(s) and inserted into the pocket. Subcutaneous closure was completed with 3-0 Vicryl. Skin closure was completed with 4-0 Vicryl. Steri-strips applied to left subclavicular incision. Steri-strips applied to left subclavicular incision. The patient tolerated the procedure well. Estimated Blood Loss: 10 ml's IMPLANTED / EX-PLANTED DEVICES IMPLANTED DEVICE(S): PPM Ventricular lead - Senior Programmer: [employer], Model # Tendril STS , Serial # [id number] PPM Atrial lead - Senior Programmer: [employer], Model # Tendril STS , Serial # [id number] PPM Ventricular lead - Senior Programmer: [employer], Model # Assurity MRI , Serial # [id number] DEVICE PARAMETERS ATRIAL LEAD PARAMETERS: P wave- 4.8 (mV) threshold- 1.25 (V) impedence- 490 (OHMS) 10V test, no diaphragmatic capture VENTRICULAR LEAD PARAMETERS: threshold- 0.75 (V) impedence- 830 (OHMS) 10V test, no diaphragmatic capture DEVICE PARAMETERS: Mode- DDDR Lower rate- 60 Upper rate- 120 CONCLUSIONS / RECOMMENDATIONS Device Conclusions: Successful implantation of a dual chamber pacemaker Device Recommendations: Follow up with Primary Care Physician PROCEDURE MEDICATIONS Fentanyl 50 mcg IV Versed 1 mg IV Versed 1 mg IV Versed 1 mg IV Oxygen: 2 L/min via nasal cannula Antibiotic given in appropriate timeframe. Ancef 2 Gm IV @ 11/07/2022 10:49:13 Signed By Shiv Crane MD On 11/10/2022 13:07:48 Shiv Crane MD
== END 2022-11-08 11:35 | disposition home or self-care (01) ==
LOC: PCU 13:10
PROVIDERS: Admitting Provider Internal Medicine Cardiovascular Disease; PCP Family Medicine; Referring Provider Internal Medicine Cardiovascular Disease; Visit Provider Internal Medicine Cardiovascular Disease
DX: Z45.018 Encounter for adjustment and management of other part of cardiac pacemaker (principal); M06.9 Rheumatoid arthritis, unspecified; I48.91 Unspecified atrial fibrillation; I44.2 Atrioventricular block, complete; I48.92 Unspecified atrial flutter; I49.5 Sick sinus syndrome; I10 Essential (primary) hypertension; Z79.899 Other long term (current) drug therapy; Z79.01 Long term (current) use of anticoagulants; Z79.82 Long term (current) use of aspirin; K21.9 Gastro-esophageal reflux disease without esophagitis; Z87.891 Personal history of nicotine dependence; G47.33 Obstructive sleep apnea (adult) (pediatric)
CPT/HCPCS: 33208; 36415; 71046; 80053; 81002; 83690; 85025; 86140; 99152; 99153; 99221; J7040; J7050; Q9967; A4216; C1894; G0378

== ENCOUNTER → 2022-12-01 | Outpatient (CLI) | payer OTHER, SELFPAY ==
[2022-12-09 09:07] LABS: Lyme IgG P18 Ab Present (.); Lyme IgG P23 Ab Present (.); Lyme IgG P28 Ab Absent (.); Lyme IgG P30 Ab Absent (.); Lyme IgG P39 Ab Present (.); Lyme IgG P41 Ab Present (.); Lyme IgG P45 Ab Absent (.); Lyme IgG P58 Ab Present (.); Lyme IgG P66 Ab Absent (.); Lyme IgG P93 Ab Absent (.); Lyme IgG WB Interpretation Positive (.); Lyme IgM P23 Ab Present (.); Lyme IgM P39 Ab Present (.); Lyme IgM P41 Ab Absent (.); Lyme IgM WB Interpretation Positive (.)
== END | disposition home or self-care (01) ==
PROVIDERS: PCP Family Medicine; Referring Provider Family Medicine; Visit Provider Family Medicine
DX: I48.92 Unspecified atrial flutter (principal); Z86.79 Personal history of other diseases of the circulatory system; A69.20 Lyme disease, unspecified
CPT/HCPCS: 86617; 86618; 86769

== ENCOUNTER → 2023-04-13 | Outpatient (CLI) | payer OTHER, SELFPAY ==
[2023-04-13 12:27] LABS: Absolute Lymphocyte Count 1.63 X10^3/uL (0.83-4.51); Absolute Neutrophil Count 3.9 X10^3/uL (2.0-7.7); Basophil# 0.03 X10^3/uL; Basophil% 0.5 % (0-1); Eosinophil# 0.15 X10^3/uL; Eosinophils% 2.4 % (0-5); Hemoglobin 15.3 g/dL (13.0-16.5); Lymphocyte # 1.63 X10^3/ul (0.83-4.51); Lymphocyte % 25.8 % (19-41); Mean Corpuscular Volume 91.1 fL (80-94); Mean Platelet Vol. 8.7 fl (6.2-12.0); Monocyte# 0.58 X10^3/uL; Monocyte% 9.2 % (0-10); NRBC Flagged by Analyzer 0 % (0-5); Neutrophil # 3.89 X10^3/uL (2.7-7.7); Neutrophil % 61.6 % (47-70); Platelet Count 199 K/mm3 (150-450); RBC Distribution Width CV 12.7 % (11.6-14.6); RBC Distribution Width SD 41.4 fl (35.1-43.9); Red Blood Count 4.94 M/mm3 (4.6-6.2); White Blood Count 6.3 K/mm3 (4.4-11.0)
[2023-04-13 13:15] LABS: AST(SGOT) 21 U/L (15-37); Alanine Aminotransfer ALT/SGPT 41 U/L (16-61); Alkaline Phosphatase 101 U/L (45-117); Anion Gap 7 (5-15); BUN 19 mg/dL (7-18); BUN/Creat Ratio 16.4 RATIO (10-20); Chloride 104 mmol/L (98-107); Cholesterol 121 mg/dL (200); Creatinine, Serum 1.16 mg/dL (0.70-1.30); EST Glomerular Filtration Rate 67 mL/min (>60); Est Glom Filt Rate - Afr Amer 82 mL/min (>60); Globulin 3.9 g/dL (2.2-4.2); Glucose 102 mg/dL (74-106); High Density Lipoprotein 39 mg/dL; Magnesium 2.2 mg/dL (1.6-2.6); Microalbumin,Random Urine 9.2 mg/L (NO RANGE EST.); Microalbumin:Creatinine Ratio 6.2 mg/g CRE (<30 mg/g CRE); Potassium 3.7 mmol/L (3.5-5.1); Protein, Total 7.9 g/dL (6.4-8.2); Sodium Level 139 mmol/L (136-145); Triglycerides 145 mg/dL; Very Low Density Lipoprotein 29 mg/dL (5-40)
== END | disposition home or self-care (01) ==
LOC: MFPLAB 09:39
PROVIDERS: PCP Family Medicine; Visit Provider Family Medicine
DX: J47.9 Bronchiectasis, uncomplicated (principal); I48.92 Unspecified atrial flutter; Z79.899 Other long term (current) drug therapy; E87.6 Hypokalemia
CPT/HCPCS: 36415; 80053; 80061; 82043; 82570; 83735; 85025

== ENCOUNTER 2023-05-26 08:45 | Day surgery (SDC) | payer OTHER, SELFPAY ==
[2023-05-26] VITALS (7 sets, daily range): BP systolic 96–107; BP diastolic 73–86; PULSE 73–82; RESP 16–18; TEMP 36.6–36.7; O2SAT 91–99; BMI 32.1
[2023-05-26] MEDS: Lactated Ringers 1,000 ML 15 ML IV (09:09)
--- OUTSIDE RECORDS SUMMARY | 2023-05-26 09:09 | XMS RPT_ITS | CCD ---
Author Name Unknown Address [address] [place] [address] Organization [facility] Care Team Providers Care Manager Regional Sales Name Role Phone Ishaan Ferguson Unavailable Unavailable Ishaan Ferguson Unavailable Unavailable Rimma Peralta Unavailable Mary Anne Queen MD Primary Care Provider Callie Brar Unavailable Unavailable Rimma Peralta Unavailable Mary Anne Queen MD Primary Care Provider Callie Hannon RN Unavailable Unavailable Rimma Peralta Unavailable Mary Anne Queen MD Primary Care Provider Callie Hannon RN Unavailable Unavailable MARY ANNE QUEEN Primary Care Unavailable ASHLEY TORRE Attending UnavailPANCHO Saini Referring Unavailable MARY ANNE QUEEN Primary Care Unavailable ETHAN MAYFIELD Attending Unavailable PANCHO GODOY Referring Unavailable MARY ANNE QUEEN Primary Care Unavailable Allergies Allergy Classification Reported Allergen(s) Allergy Type Date of Onset Reaction(s) Facility (1 source) No Known Medication Allergies; Translations: [No Known Medication Allergies] Propensity to adverse reactions to drug (disorder) [facility] Repository (8 sources) Seasonal allergy; Translations: [SEASONAL ALLERGIES] Allergy to substance 7 Itching [facility] Medications Completed/Discontinued Medications Medication Drug Class(es) Dates Sig (Normalized) Sig (Original) amLODIPine 5 mg oral tablet (7 sources) Dihydropyridine Calcium Channel Emile take 1 tablet by mouth once daily amLODIPine (NORVASC) 5 mg tablet Take 5 mg by mouth once daily. 0 Active Problems Active Problems Problem Classification Problem Date Documented Da te Episodic/Chronic Blindness and vision defects (18 sources) Presbyopia; Translations: [Presbyopia] Onset: 03-20-2014 03-20-2014 Episodic Cataract (2 sources) Nuclear sclerotic cataract; Translations: [Age-related nuclear cataract, bilateral] Chronic Diseases of white blood cells (7 sources) Leukopenia; Translations: [Decreased white blood cell count, unspecified] Onset: 05-06-2019 05-06-2019 Chronic Non-Hodgkin`s lymphoma (15 sources) Malignant lymphoma of intra-abdominal lymph nodes; Translations: [Follicular lymphoma grade I, intra-abdominal lymph nodes] Onset: 06-02-2018 Chronic Other aftercare (9 sources) Taking high risk medication; Translations: [Other shelter (current) drug therapy] Onset: 03-20-2014 07-30-2015 Episodic Other eye disorders (9 sources) Bilateral vitreous floaters; Translations: [Other vitreous opacities, bilateral] Onset: 03-20-2014 07-30-2015 Chronic Retinal detachments; defects; vascular occlusion; and retinopathy (7 sources) Retinal pigment epithelium atrophy; 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] Onset: 03-20-2014 03-20-2014 Chronic Past or Other Problems Problem Classification Problem Date Documented Date Episodic/Chronic Biliary tract disease (7 sources) Cholelithiasis AND cholecystitis without obstruction; Translations: [Calculus of gallbladder with chronic cholecystitis without obstruction] Onset: 10-29-2015 10-29-2015 Episodic Results Test Name Value Interpretation Reference Range Facil ity Vital Signs Date Time Vital Sign Value Performing Clinician Jayla azul 01-20-2023 10:030400 Body height 185 cm Ethan Mayfield MD Work Phone: [facility] 01-20-2023 10:03-0400 Body temperature 98.29 [degF] Ethan Mayfield MD Work Phone: [facility] 01-20-2023 10:03-0400 Body weight 113.85 kg Ethan Mayfield MD Work Phone: [facility] 01-20-2023 10:03-0400 Diastolic blood pressure 79 mm[Hg] Ethan Mayfield MD Work Phone: [facility] 01-20-2023 10:03-0400 Heart rate 84 /min Ethan Mayfield MD Work Phone: [facility] 01-20-2023 10:03-0400 SaO2% (BldA) [Mass fraction] 95 % Ethan Mayfield MD Work Phone: [facility] 01-20-2023 10:03-0400 Systolic blood pressure 110 mm[Hg] Ethan Mayfield MD Work Phone: [facility] 01-21-2022 10:16-0400 Body temperature 97.9 [degF] Pancho Godoy MD Work Phone: [facility] 01-21-2022 10:16-0400 Body weight 117.71 kg Pancho Godoy MD Work Phone: [facility] 01-21-2022 10:16-0400 Diastolic blood pressure 81 mm[Hg] Pancho Godoy MD Work Phone: [facility] 01-21-2022 10:16-0400 Heart rate 68 /min Pancho Godoy MD Work Phone: [facility] 01-21-2022 10:16-0400 Systolic blood pressure 111 mm[Hg] Pancho Godoy MD Work Phone: [facility] 07-22-2021 16:07-0400 Body temperature 97.7 [degF] Pancho Godoy MD Work Phone: [facility] 07-22-2021 16:07-0400 Body weight 119.3 kg Pancho Godoy MD Work Phone: [facility] 07-22-2021 16:07-0400 Diastolic blood pressure 80 mm[Hg] Pancho Godoy MD Work Phone: [facility] 07-22-2021 16:07-0400 Heart rate 69 /min Pancho Godoy MD Work Phone: [facility] 07-22-2021 16:07-0400 Systolic blood pressure 125 mm[Hg] Pancho Godoy MD Work Phone: [facility] Encounters Encounter Date Encounter Type Care Provider Facility Start: 02-02-2023 End: 02-02-2023 ambulatory MARY ANNE QUEEN Facility:[facility] Start: 02-02-2023 End: 02-02-2023 Patient encounter procedure Ashley Torre OD Work Phone: Optometry Procedures Date Procedure Procedure Detail Performing Clinician Start: 02-02-2023 End: 02-02-2023 Computerized ophthalmic imaging retina Ashley Torre OD Work Phone: Start: 01-13-2022 End: 01-13-2022 Computerized ophthalmic imaging retina Ashley Torre OD Work Phone: Start: 07-19-2021 Ct abdomen & pelvis w/contrast material Pancho Godoy MD Work Phone: Start: 09-08-2019 Adult depression scr eening assessment Ct ([facility]) Work Phone: Start: 05-13-[address] ([facility] ) Work Phone: Plan of Treatment Date Care Activity Detail Author Start: 08-07-2027 Urine microalbumin profile DTaP,Tdap,Td Vaccine (2 - Td or Tdap) [facility] Start: 01-20-2026 Diabetes Screening Diabetes Screenin g [facility] Start: 01-21-2025 DIABETES SCREEN DIABETES SCREEN [facility] Start: 07-19-2024 DIABETES SCREEN DIABETES SCREEN [facility] Start: 01-20-2023 End: 04-21-2023 CBC W Auto Differential panel - Blood CBC + DIFF Lab Routine Grade 1 follicular lymphoma of lymph nodes of multiple regions (HCC) Expected: 01/20/2023, Expires: 04/21/2023 [facility] Work Phone: Immunizations Immunization Date Immunization Notes Care Provider Rogelio bryan 02-22-2022 influenza virus vaccine, unspecified formulation Ethan Mayfield MD Work Phone: [facility] 02-24-2020 influenza, injectabl e, quadrivalent, preservative free Ct ([facility]) Work Phone: [facility] Payers Date Payer Category Payer Unknown MMO MMO [employer] [id number] 2018-Present [phone] [address] [place] [address] PPO [id number] 2018 Unknown [id number] 2017 Unknown 1960 Unknown [id number] Social History Date Type Detail Facility Start: 10-29-2015 End: 01-13-2022 Tobacco smoking status NHIS Ex-smoker [facility] End: 10-13-2013 History of tobacco use Current smoker [facility] End: 10-13-2013 History of tobacco use Cigarette Smoker [facility] Start: 10-29-2015 End: 01-20-2023 Cigarettes smoked current (pack per day) - Reported 0.5 [facility] Start: 10-29-2015 End: 01-13-2022 Tobacco use and exposure Former smokeless tobacco user [facility] End: 03-20-2012 History of tobacco use Snuff User [facility] End: 03-20-2012 History of tobacco use Chews Tobacco [facility] Start: 01-18-2021 End: 07-22-2021 Alcohol intake Current drinker of alcohol (finding) [facility] Start: 03-20-2014 History SDOH Alcohol Comment rarely [facility] Start: 1960 Sex Assigned At Not on file C [facility] Start: 01-13-2022 End: 02-02-2023 Alcohol intake Ex-drinker (finding) [facility] Start: 01-03-2022 End: 01-13-2022 Exposure to SARS-CoV-2 (event) Not sure [facility] Start: 09-08-2019 End: 01-20-2023 Tobacco use panel [facility] Adult Depression Scr eening Assessment 0 [facility] Clinical Notes 07-19-2021 to 02-02-2023 Patient InstructionsAshley Torre OD - 02/02/2023 3:24 PM Ethan Peters MD - 01/20/2023 10:09 AM Laurel Godoy MD - 01/21/2022 10:08 AM EDTPatient Instructions Note Date & Type Note Facility 02-02-2023 Note HNO ID: [id number] Author: Ashley Torre OD Service: ? 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 High risk medication use - ICD9: V58.69, ICD10: Z79.899 (primary diagnosis) Hydroxychloroquine use - Indication: Rheumatoid Arthritis - no signs of toxicity today on exam - OCT (02/02/2023): normal - Visual Field 10-2 (02/02/2023): normal - has been using plaquenil 200 mg twice daily - The recommended dosage is the lower of 5 mg/kg/day based on real body weight or 6.5 mg/kg/day based on ideal body weight as described in the most recent AAO plaquenil screening guidelines - Risk factors for toxicity include daily dose and duration of use, renal disease, tamoxifen use, history of retinal or macular disease - he is 113.40 kg which gives a maximum safe ophthalmic dose of 567 mg daily by real body weight Males: IBW = 50 kg + 2.3 kg for each inch over 5 feet. Females: IBW = 45.5 kg + 2.3 kg for each inch over 5 feet. 2. Nuclear sclerotic cataract of both eyes - ICD9: 366.16, ICD10: H25.13 Mild cataract in both eyes. Well tolerated at this time. Discussed possible future affect on daily activities to watch for. Monitor as instructed. 3. Vitreous floaters of both eyes - ICD9: 379.24, ICD10: H43.393 Vitreal floaters stable both eyes. Retinas flat and intact with no apparent retinal tear or traction. Discussed symptoms of retinal tear/detachment and if seen patient will return to clinic without delay. 4. Hyperopia, right - ICD9: 367.0, ICD10: H52.01 5. Presbyopia - ICD9: 367.4, ICD10: H52.4 Continue to wear glasses as he desires. Recommended yearly exams. Ashley Torre, OD I have confirmed and edited as necessary the relevant ophthalmic history, ROS, and the neuro exam findings as obtained by others. [facility] 02-02-2023 Instructions Ashley Torre, OD - 02/02/2023 3:48 PM EDT ASSESSMENT/PLAN: 1. High risk medication use - ICD9: V58.69, ICD10: Z79.899 (primary diagnosis) Hydroxychloroquine use - Indication: Rheumatoid Arthritis - no signs of toxicity today on exam - OCT (02/02/2023): normal - Visual Field 10-2 (02/02/2023): normal - has been using plaquenil 200 mg twice daily - The recommended dosage is the lower of 5 mg/kg/day based on real body weight or 6.5 mg/kg/day based on ideal body weight as described in the most recent AAO plaquenil screening guidelines - Risk factors for toxicity include daily dose and duration of use, renal disease, tamoxifen use, history of retinal or macular disease - he is 113.40 kg which gives a maximum safe ophthalmic dose of 567 mg daily by real body weight Males: IBW = 50 kg + 2.3 kg for each inch over 5 feet. Females: IBW = 45.5 kg + 2.3 kg for each inch over 5 feet. 2. Nuclear sclerotic cataract of both eyes - ICD9: 366.16, ICD10: H25.13 Mild cataract in both eyes. Well tolerated at this time. Discussed possible future affect on daily activities to watch for. Monitor as instructed. 3. Vitreous floaters of both eyes - ICD9: 379.24, ICD10: H43.393 Vitreal floaters stable both eyes. Retinas flat and intact with no apparent retinal tear or traction. Discussed symptoms of retinal tear/detachment and if seen patient will return to clinic without delay. 4. Hyperopia, right - ICD9: 367.0, ICD10: H52.01 5. Presbyopia - ICD9: 367.4, ICD10: H52.4 Continue to wear glasses as he desires. Recommended yearly exams. documented in this encounter [facility] 02-02-2023 History of Present illness Narrative ASSESSMENT/PLAN: 1. High risk medication use - ICD9: V58.69, ICD10: Z79.899 (primary diagnosis) Hydroxychloroquine use - Indication: Rheumatoid Arthritis - no signs of toxicity today on exam - OCT (02/02/2023): normal - Visual Field 10-2 (02/02/2023): normal - has been using plaquenil 200 mg twice daily - The recommended dosage is the lower of 5 mg/kg/day based on real body weight or 6.5 mg/kg/day based on ideal body weight as described in the most recent AAO plaquenil screening guidelines - Risk factors for toxicity include daily dose and duration of use, renal disease, tamoxifen use, history of retinal or macular disease - he is 113.40 kg which gives a maximum safe ophthalmic dose of 567 mg daily by real body weight Males: IBW = 50 kg + 2.3 kg for each inch over 5 feet. Females: IBW = 45.5 kg + 2.3 kg for each inch over 5 feet. 2. Nuclear sclerotic cataract of both eyes - ICD9: 366.16, ICD10: H25.13 Mild cataract in both eyes. Well tolerated at this time. Discussed possible future affect on daily activities to watch for. Monitor as instructed. 3. Vitreous floaters of both eyes - ICD9: 379.24, ICD10: H43.393 Vitreal floaters stable both eyes. Retinas flat and intact with no apparent retinal tear or traction. Discussed symptoms of retinal tear/detachment and if seen patient will return to clinic without delay. 4. Hyperopia, right - ICD9: 367.0, ICD10: H52.01 5. Presbyopia - ICD9: 367.4, ICD10: H52.4 Continue to wear glasses as he desires. Recommended yearly exams. Ashley Torre, OD I have confirmed and edited as necessary the relevant ophthalmic history, ROS, and the neuro exam findings as obtained by others. documented in this encounter [facility] 01-20-2023 Note HNO ID: [id number] Author: Ethan Mayfield MD Service: ? Author Type: Physician Type: Progress Notes Filed: 01/20/2023 1:48 PM Note Text: HISTORY OF PRESENT ILLNESS: Juan José Valencia is a 63 year old male who presented to Dr. Baires with the 6 month history of epigastric pain and bloating. He has no history of peptic ulcer disease or GI bleeding. He complained of early satiety but no weight loss. Patient has no fever chills night sweats. He did not have any back pain and flank pain, nausea or vomiting. He did have occasional diarrhea but no constipation. Couple years ago he had a CT scan of the abdomen for similar symptoms and possible gallstone. After further review of his CT scan, he did have mild mesenteric adenopathy. He has been on Humira along with leflunomide and hydroxychloroquine for the treatment of rheumatoid arthritis for many years. She recently stopped Humira after he was found to have possible lymphoma. Patient had colonoscopy and upper endoscopy last week gastric interim biopsy was negative for H. pylori and there were mild gastritis. Colonoscopy revealed a tubular adenoma at [address] scan of the abdomen and pelvis showed bulky retroperitoneal and mesenteric adenopathy. Pancreatic invasion by tumor is considered less likely. There were no bowel obstruction. He underwent laparoscopic biopsy of the mesenteric mass last week. Pathology is still pending. Overall, patient is feeling well with mild epigastric pain and bloating. Patient has no jaundice, nausea, vomiting or change in bowel habit. The biopsy of the mesenteric lymph node was consistent with a grade 1 follicular B-cell lymphoma. Treatment history: Rituximab AND bendamustine (06/14/18- 11/26/18) Maintenance therapy: Rituximab every 60 days (January - February 24, 2020) CLINICAL IMPRESSION: FL as above stage II intra abdominal masses. Clinically in remission RECOMMENDATION/PLAN: 1. Follow up 1 year, see back sooner if clinically indicated Written and verbal health teaching given to patient, patient verbalizes understanding and agrees with treatment plan. PAST MEDICAL HISTORY Diagnosis Date Follicular lymphoma (HCC) in remission per patient January 2022 Hypertension Rheumatoid arthritis (HCC) PAST SURGICAL HISTORY Procedure Laterality Date CHOLECYSTECTOMY CHOLECYSTECTOMY HX HERNIA REPAIR HX INSER DAVIDSON PACER XVENOUS ATRIAL 2022 FAMILY HISTORY Problem Relation Age of Onset Cancer Father lung Heart disease Father Diabetes Mother Heart Mother Hypertension Mother Cancer Mother kidney,bladder Diabetes Sister Heart disease Sister Heart Brother No Known Problems Sister Cancer Sister skin Arthritis Sister No Known Problems Sister Hypertension Brother Social History Tobacco Use Smoking status: Former Packs/day: 0.50 Years: 30.00 Additional pack years: 0.00 Total pack years: 15.00 Types: Cigarettes Quit date: 10/13/2013 Years since quittin.2 Smokeless tobacco: Former Types: Snuff, Chew Quit date: 03/20/2012 Vaping Use Vaping Use: Never used Substance Use Topics Alcohol use: Not Currently Alcohol/week: 0.8 standard drinks of alcohol Types: 1 Cans of beer per week Comment: rarely Drug use: No ALLERGIES: ALLERGIES Allergen Reactions Seasonal Allergies Itching CURRENT OUTPATIENT MEDICATIONS: aspirin, enteric coated (ADULT LOW DOSE ASPIRIN) 81 mg EC tablet Take 81 mg by mouth once daily. hydrOXYchloroQUINE (PLAQUENIL) 200 mg tablet Take 200 mg by mouth twice daily. esomeprazole (NEXIUM) 40 mg capsule Take 40 mg by mouth DAILY (6 AM). prn atenolol (TENORMIN) 25 mg tablet Take 25 mg by mouth once daily. chlorthalidone (HYGROTON) 25 mg tablet Take 12.5 mg by mouth once daily. amLODIPine (NORVASC) 5 mg tablet Take 5 mg by mouth once daily. REVIEW OF SYSTEMS: GENERAL: No fever, night sweats, weight loss or malaise. All other reviewed and negative other than HPI. PHYSICAL EXAMINATION: VITAL SIGNS: BP 110/79 Pulse 84 Temp 98.3 Ht 6' .835 (1.85m) Wt 251 lb (113.9kg) SpO2 95% BMI 33.27 kg/(m2). GENERAL APPEARANCE: Well appearing, in no acute distress, alert and oriented x3, well-hydrated, well nourished. No adenopathy, no splenomegaly of palpable abdominal masses. I spent a total of 45 minutes on the date of the service which included preparing to see the patient, [id number] patient care, completing clinical documentation, obtaining and/or reviewing separately obtained history, performing a medically appropriate examination, counseling and educating the patient/family/caregiver, ordering medications, tests, or procedures, independently interpreting results (not separately reported), and communicating results to the patient/family/caregiver. Electronically Signed: Ethan Mayfield MD January 20, 2023 10:10 AM [facility] 01-20-2023 History of Present illness Narrative HISTORY OF PRESENT ILLNESS: Juan José Valencia is a 63 year old male who presented to Dr. Baires with the 6 month history of epigastric pain and bloating. He has no history of peptic ulcer disease or GI bleeding. He complained of early satiety but no weight loss. Patient has no fever chills night sweats. He did not have any back pain and flank pain, nausea or vomiting. He did have occasional diarrhea but no constipation. Couple years ago he had a CT scan of the abdomen for similar symptoms and possible gallstone. After further review of his CT scan, he did have mild mesenteric adenopathy. He has been on Humira along with leflunomide and hydroxychloroquine for the treatment of rheumatoid arthritis for many years. She recently stopped Humira after he was found to have possible lymphoma. Patient had colonoscopy and upper endoscopy last week gastric interim biopsy was negative for H. pylori and there were mild gastritis. Colonoscopy revealed a tubular adenoma at [address] scan of the abdomen and pelvis showed bulky retroperitoneal and mesenteric adenopathy. Pancreatic invasion by tumor is considered less likely. There were no bowel obstruction. He underwent laparoscopic biopsy of the mesenteric mass last week. Pathology is still pending. Overall, patient is feeling well with mild epigastric pain and bloating. Patient has no jaundice, nausea, vomiting or change in bowel habit. The biopsy of the mesenteric lymph node was consistent with a grade 1 follicular B-cell lymphoma. Treatment history: Rituximab & bendamustine (06/14/18- 11/26/18) Maintenance therapy: Rituximab every 60 days (January - February 24, 2020) CLINICAL IMPRESSION: FL as above stage II intra abdominal masses. Clinically in remission RECOMMENDATION/PLAN: 1. Follow up 1 year, see back sooner if clinically indicated Written and verbal health teaching given to patient, patient verbalizes understanding and agrees with treatment plan. PAST MEDICAL HISTORY Diagnosis Date Follicular lymphoma (HCC) in remission per patient January 2022 Hypertension Rheumatoid arthritis (HCC) PAST SURGICAL HISTORY Procedure Laterality Date CHOLECYSTECTOMY CHOLECYSTECTOMY HX HERNIA REPAIR HX INSER DAVIDSON PACER XVENOUS ATRIAL 2022 FAMILY HISTORY Problem Relation Age of Onset Cancer Father lung Heart disease Father Diabetes Mother Heart Mother Hypertension Mother Cancer Mother kidney,bladder Diabetes Sister Heart disease Sister Heart Brother No Known Problems Sister Cancer Sister skin Arthritis Sister No Known Problems Sister Hypertension Brother Social History Tobacco Use Smoking status: Former Packs/day: 0.50 Years: 30.00 Additional pack years: 0.00 Total pack years: 15.00 Types: Cigarettes Quit date: 10/13/2013 Years since quittin.2 Smokeless tobacco: Former Types: Snuff, Chew Quit date: 03/20/2012 Vaping Use Vaping Use: Never used Substance Use Topics Alcohol use: Not Currently Alcohol/week: 0.8 standard drinks of alcohol Types: 1 Cans of beer per week Comment: rarely Drug use: No ALLERGIES: ALLERGIES Allergen Reactions Seasonal Allergies Itching CURRENT OUTPATIENT MEDICATIONS: aspirin, enteric coated (ADULT LOW DOSE ASPIRIN) 81 mg EC tablet Take 81 mg by mouth once daily. hydrOXYchloroQUINE (PLAQUENIL) 200 mg tablet Take 200 mg by mouth twice daily. esomeprazole (NEXIUM) 40 mg capsule Take 40 mg by mouth DAILY (6 AM). prn atenolol (TENORMIN) 25 mg tablet Take 25 mg by mouth once daily. chlorthalidone (HYGROTON) 25 mg tablet Take 12.5 mg by mouth once daily. amLODIPine (NORVASC) 5 mg tablet Take 5 mg by mouth once daily. REVIEW OF SYSTEMS: GENERAL: No fever, night sweats, weight loss or malaise. All other reviewed and negative other than HPI. PHYSICAL EXAMINATION: VITAL SIGNS: BP 110/79 Pulse 84 Temp 98.3 Ht 6' .835 (1.85m) Wt 251 lb (113.9kg) SpO2 95% BMI 33.27 kg/(m^2). GENERAL APPEARANCE: Well appearing, in no acute distress, alert and oriented x3, well-hydrated, well nourished. No adenopathy, no splenomegaly of palpable abdominal masses. I spent a total of 45 minutes on the date of the service which included preparing to see the patient, [id number] patient care, completing clinical documentation, obtaining and/or reviewing separately obtained history, performing a medically appropriate examination, counseling and educating the patient/family/caregiver, ordering medications, tests, or procedures, independently interpreting results (not separately reported), and communicating results to the patient/family/caregiver. Electronically Signed: Ethan Mayfield MD January 20, 2023 10:10 AM documented in this encounter [facility] 01-21-2022 History of Present illness Narrative PATIENT NAME: Juan José Valencia. CLINIC NO: [id number]. ATTENDING PHYSICIAN: Pancho Godoy MD. DATE OF SERVICE: January 21, 2022 DIAGNOSIS: follicular (grade 1) B-cell lymphoma. HPI: 62-year-old gentleman with history of hypertension and rheumatoid arthritis who presented to Dr. Baires with the 6 month history of epigastric pain and bloating. He has no history of peptic ulcer disease or GI bleeding. He complained of early satiety but no weight loss. Patient has no fever chills night sweats. He did not have any back pain and flank pain, nausea or vomiting. He did have occasional diarrhea but no constipation. Couple years ago he had a CT scan of the abdomen for similar symptoms and possible gallstone. After further review of his CT scan, he did have mild mesenteric adenopathy. He has been on Humira along with leflunomide and hydroxychloroquine for the treatment of rheumatoid arthritis for many years. She recently stopped Humira after he was found to have possible lymphoma. Patient had colonoscopy and upper endoscopy last week gastric interim biopsy was negative for H. pylori and there were mild gastritis. Colonoscopy revealed a tubular adenoma at [address] scan of the abdomen and pelvis showed bulky retroperitoneal and mesenteric adenopathy. Pancreatic invasion by tumor is considered less likely. There were no bowel obstruction. He underwent laparoscopic biopsy of the mesenteric mass last week. Pathology is still pending. Overall, patient is feeling well with mild epigastric pain and bloating. Patient has no jaundice, nausea, vomiting or change in bowel habit. The biopsy of the mesenteric lymph node was consistent with a grade 1 follicular B-cell lymphoma. Current treatment: Rituximab & bendamustine (06/14/18- 11/26/18) Maintenance therapy: Rituximab every 60 days (January - February 24, 2020) Interim history: He is doing well. He denies fever, chills night sweats. He denies fatigue or weight loss. No abdominal pain or bloating. No swollen glands or adenopathy. He has occasional arthritic pain and stiffness managed by Tylenol. All medications & allergies updated and reviewed by me. REVIEW OF SYSTEMS: CONSTITUTIONAL: No fevers, chills, nightsweats, unintended weight loss HEENT: Denies frequent or severe heaches, nasal congestion/sinus symptoms, problematic allergy problems. EYES: No diplopia or blurry vision. CARDIOVASCULAR: No chest pain, dyspnea, palpitations, orthopnea, PND, ankle edema. PULM: No dyspnea, unexplained cough. GI: No Epigastric tenderness, No dysphagia/odynophagia, problematic reflux, constipation, occasional diarrhea, changes in stool habits, hematochezia, melena. : No new urinary complaints, including dysuria, gross hematuria or pyuria. NEURO: No new balance problems, peripheral weakness/paresthesias or numbness of concern. MUSC-SKEL: No new joint pain, swelling, or erythema. PSY: No concerns regarding depression, anxiety or panic. INTEGUMENTARY: No new skin changes (rash, new or changing mole, new growth) PHYSICAL EXAMINATION: 62 year-old well-nourished well-developed gentleman in no acute distress Performance status: 100% BP 111/81 Pulse 68 Temp (Src) 97.9 (Temporal) Wt 259 lb 8 oz (117.7kg) HEENT: Head is normocephalic, atraumatic. Sclerae white, conjunctivae pink. PEERL. EOMs are intact. Oropharynx is benign. LYMPHATICS: There is no palpable adenopathy in the neck, supraclavicular region, axillae, or groin. LUNGS: Lungs are clear to percussion and auscultation. Mild basilar rales /crackles, no wheezing HEART: Heart is normal without murmurs, gallops, or rubs. ABDOMEN: Soft and non-tender, mid abdominal mass had resolved. EXTREMITIES: Are without edema. NEUROLOGIC: Exam is physiologic LABORATORY DATA: Component Latest Ref Rng & Units 01/21/2022 WBC 3.70 - 11.00 k/uL 8.69 RBC 4.20 - 6.00 m/uL 4.66 Hemoglobin 13.0 - 17.0 g/dL 15.2 Hematocrit 39.0 - 51.0 % 41.4 MCV 80.0 - 100.0 fL 88.8 MCH 26.0 - 34.0 pg 32.6 MCHC 30.5 - 36.0 g/dL 36.7 (H) RDW-CV 11.5 - 15.0 % 12.0 Platelet Count 150 - 400 k/uL 179 MPV 9.0 - 12.7 fL 8.7 (L) Neut% % 77.1 Abs Neut (ANC) 1.45 - 7.50 k/uL 6.69 Lymph% % 14.8 Abs Lymph 1.00 - 4.00 k/uL 1.29 Grand% % 5.4 Abs Grand <0.87 k/uL 0.47 Eosin% % 1.7 Abs Eosin <0.46 k/uL 0.15 Baso% % 0.7 Abs Baso <0.11 k/uL 0.06 Immature Gran % % 0.3 IMMATURE GRANS (ABS) <0.10 k/uL 0.03 NRBC /100 WBC 0.0 Absolute nRBC <0.01 k/uL <0.01 DTYPE Auto Component Latest Ref Rng & Units 01/21/2022 Protein, Total 6.3 - 8.0 g/dL 7.2 Albumin 3.9 - 4.9 g/dL 4.9 Calcium 8.5 - 10.2 mg/dL 9.5 Bilirubin, Total 0.2 - 1.3 mg/dL 0.4 Alkaline Phosphatase 38 - 113 U/L 89 AST 14 - 40 U/L 17 ALT 10 - 54 U/L 24 Glucose 74 - 99 mg/dL 126 (H) BUN 9 - 24 mg/dL 19 Creatinine 0.73 - 1.22 mg/dL 1.07 Sodium 136 - 144 mmol/L 136 Potassium 3.7 - 5.1 mmol/L 3.9 Chloride 97 - 105 mmol/L 101 CO2 22 - 30 mmol/L 23 Anion Gap 9 - 18 mmol/L 12 eGFR >=60 mL/min/1.73m 78 LD 135 - 225 U/L 185 ASSESSMENT: 62-year-old gentleman with mesenteric and retroperitoneal mass consistent with a stage II low-grade lymphoma ( Follicular B-cell Non-Hodgkin lymphoma ) FLIPI score 0 - 1 1) follicular lymphoma -Clinically in complete remission. 2) psoriatic arthritis -Stable on Plaquenil 200 mg twice daily. -Neutropenia resolved PLAN: -Continue observation. -Repeat CBC, CMP, LDH and OV in 1 year -No further CT imaging unless clinically indicated Portions of this documentation were copied and pasted from previous office visit notes in order to provide a cohesive continuity of the history. The note has been reviewed and edited and updated as necessary. Pancho Godoy MD Cc: Dr. Mary Anne Queen documented in this encounter [facility] 01-13-2022 Instructions Ashley Torre, OD - 01/13/2022 3:51 PM EDT ASSESSMENT/PLAN: 1. High risk medication use - ICD9: V58.69, ICD10: Z79.899 (primary diagnosis) No ocular complications found secondary to use of Plaquenil. Continue regularly scheduled observation as instructed. Discussed need for early detection of ocular complications as they can continue to progress for a period of time even after medication is discontinued. 2. Nuclear sclerotic cataract of both eyes - ICD9: 366.16, ICD10: H25.13 Mild cataract in both eyes. Well tolerated at this time. Discussed possible future affect on daily activities to watch for. Monitor as instructed. 3. Vitreous floaters of both eyes - ICD9: 379.24, ICD10: H43.393 Vitreal floaters stable both eyes. Retinas flat and intact with no apparent retinal tear or traction. Discussed symptoms of retinal tear/detachment and if seen patient will return to clinic without delay. 4. Hyperopia, right - ICD9: 367.0, ICD10: H52.01 5. Presbyopia - ICD9: 367.4, ICD10: H52.4 Continue to wear his readers as desired. Recommended yearly exams. documented in this encounter [facility] 01-13-2022 History of Present illness Narrative ASSESSMENT/PLAN: 1. High risk medication use - ICD9: V58.69, ICD10: Z79.899 (primary diagnosis) No ocular complications found secondary to use of Plaquenil. Continue regularly scheduled observation as instructed. Discussed need for early detection of ocular complications as they can continue to progress for a period of time even after medication is discontinued. 2. Nuclear sclerotic cataract of both eyes - ICD9: 366.16, ICD10: H25.13 Mild cataract in both eyes. Well tolerated at this time. Discussed possible future affect on daily activities to watch for. Monitor as instructed. 3. Vitreous floaters of both eyes - ICD9: 379.24, ICD10: H43.393 Vitreal floaters stable both eyes. Retinas flat and intact with no apparent retinal tear or traction. Discussed symptoms of retinal tear/detachment and if seen patient will return to clinic without delay. 4. Hyperopia, right - ICD9: 367.0, ICD10: H52.01 5. Presbyopia - ICD9: 367.4, ICD10: H52.4 Continue to wear his readers as desired. Recommended yearly exams. Ashley Torre, OD I have confirmed and edited as necessary the relevant ophthalmic history, ROS, and the neuro exam findings as obtained by others. I have seen and examined this patient. documented in this encounter [facility] 07-22-2021 History of Present illness Narrative PATIENT NAME: Juan José Valencia. CLINIC NO: [id number]. ATTENDING PHYSICIAN: Pancho Godoy MD. DATE OF SERVICE: July 22, 2021 DIAGNOSIS: follicular (grade 1) B-cell lymphoma. HPI: 61-year-old gentleman with history of hypertension and rheumatoid arthritis who presented to Dr. Baires with the 6 month history of epigastric pain and bloating. He has no history of peptic ulcer disease or GI bleeding. He complained of early satiety but no weight loss. Patient has no fever chills night sweats. He did not have any back pain and flank pain, nausea or vomiting. He did have occasional diarrhea but no constipation. Couple years ago he had a CT scan of the abdomen for similar symptoms and possible gallstone. After further review of his CT scan, he did have mild mesenteric adenopathy. He has been on Humira along with leflunomide and hydroxychloroquine for the treatment of rheumatoid arthritis for many years. She recently stopped Humira after he was found to have possible lymphoma. Patient had colonoscopy and upper endoscopy last week gastric interim biopsy was negative for H. pylori and there were mild gastritis. Colonoscopy revealed a tubular adenoma at [address] scan of the abdomen and pelvis showed bulky retroperitoneal and mesenteric adenopathy. Pancreatic invasion by tumor is considered less likely. There were no bowel obstruction. He underwent laparoscopic biopsy of the mesenteric mass last week. Pathology is still pending. Overall, patient is feeling well with mild epigastric pain and bloating. Patient has no jaundice, nausea, vomiting or change in bowel habit. The biopsy of the mesenteric lymph node was consistent with a grade 1 follicular B-cell lymphoma. Current treatment: Rituximab & bendamustine (06/14/18- 11/26/18) Maintenance therapy: Rituximab every 60 days (January - February 24, 2020) Interim history: He is doing well. He denies fever, chills night sweats. He denies fatigue or weight loss. No abdominal pain or bloating. No swollen glands or adenopathy. His psoriatic arthritis has not been an issue lately. He plaquenil 200mg BID about 6 months ago. All medications & allergies updated and reviewed by me. REVIEW OF SYSTEMS: CONSTITUTIONAL: No fevers, chills, nightsweats, unintended weight loss HEENT: Denies frequent or severe heaches, nasal congestion/sinus symptoms, problematic allergy problems. EYES: No diplopia or blurry vision. CARDIOVASCULAR: No chest pain, dyspnea, palpitations, orthopnea, PND, ankle edema. PULM: No dyspnea, unexplained cough. GI: No Epigastric tenderness, No dysphagia/odynophagia, problematic reflux, constipation, occasional diarrhea, changes in stool habits, hematochezia, melena. : No new urinary complaints, including dysuria, gross hematuria or pyuria. NEURO: No new balance problems, peripheral weakness/paresthesias or numbness of concern. MUSC-SKEL: No new joint pain, swelling, or erythema. PSY: No concerns regarding depression, anxiety or panic. INTEGUMENTARY: No new skin changes (rash, new or changing mole, new growth) PHYSICAL EXAMINATION: 61 year-old well-nourished well-developed gentleman in no acute distress Performance status: 100% BP 125/80 Pulse 69 Temp (Src) 97.7 (Temporal) Wt 263 lb (119.3kg) HEENT: Head is normocephalic, atraumatic. Sclerae white, conjunctivae pink. PEERL. EOMs are intact. Oropharynx is benign. LYMPHATICS: There is no palpable adenopathy in the neck, supraclavicular region, axillae, or groin. LUNGS: Lungs are clear to percussion and auscultation. Mild basilar rales /crackles, no wheezing HEART: Heart is normal without murmurs, gallops, or rubs. ABDOMEN: Soft and non-tender, mid abdominal mass had resolved. EXTREMITIES: Are without edema. NEUROLOGIC: Exam is physiologic LABORATORY DATA: Component Latest Ref Rng & Units 07/19/2021 WBC 3.70 - 11.00 k/uL 6.11 RBC 4.20 - 6.00 m/uL 4.63 Hemoglobin 13.0 - 17.0 g/dL 15.2 Hematocrit 39.0 - 51.0 % 42.1 MCV 80.0 - 100.0 fL 90.9 MCH 26.0 - 34.0 pg 32.8 MCHC 30.5 - 36.0 g/dL 36.1 (H) RDW-CV 11.5 - 15.0 % 12.5 Platelet Count 150 - 400 k/uL 164 MPV 9.0 - 12.7 fL 8.7 (L) Neut% % 62.7 Abs Neut (ANC) 1.45 - 7.50 k/uL 3.83 Lymph% % 21.9 Abs Lymph 1.00 - 4.00 k/uL 1.34 Grand% % 10.1 Abs Grand <0.87 k/uL 0.62 Eosin% % 3.8 Abs Eosin <0.46 k/uL 0.23 Baso% % 1.0 Abs Baso <0.11 k/uL 0.06 Immature Gran % % 0.5 IMMATURE GRANS (ABS) <0.10 k/uL 0.03 NRBC /100 WBC 0.0 Absolute nRBC <0.01 k/uL <0.01 DTYPE Auto Component Latest Ref Rng & Units 07/19/2021 Protein, Total 6.3 - 8.0 g/dL 6.9 Albumin 3.9 - 4.9 g/dL 4.4 Calcium 8.5 - 10.2 mg/dL 9.1 Bilirubin, Total 0.2 - 1.3 mg/dL 0.5 Alkaline Phosphatase 38 - 113 U/L 69 AST 14 - 40 U/L 24 ALT 10 - 54 U/L 37 Glucose 74 - 99 mg/dL 105 (H) BUN 9 - 24 mg/dL 19 Creatinine 0.73 - 1.22 mg/dL 1.08 Sodium 136 - 144 mmol/L 141 Potassium 3.7 - 5.1 mmol/L 3.7 Chloride 97 - 105 mmol/L 103 CO2 22 - 30 mmol/L 27 Anion Gap 9 - 18 mmol/L 11 eGFR >=60 mL/min/1.73m 78 LD 135 - 225 U/L 188 CT SCAN:COMPARISON: CT abdomen and pelvis 01/16/2021 and 07/10/2020 IMPRESSION: 1. Decreased size of a left lower quadrant mesenteric lymph node. Unchanged appearance of ill-defined soft tissue density masses adjacent to the celiac axis and at the root of the mesentery. 2. Fatty infiltration of the liver ASSESSMENT: 61-year-old gentleman with mesenteric and retroperitoneal mass consistent with a stage II low-grade lymphoma ( Follicular B-cell Non-Hodgkin lymphoma ) FLIPI score 0 - 1 1) follicular lymphoma -Clinically in complete remission. 2) neutropenia -Resolved after he stopped rituximab. PLAN: -Continue observation. -Repeat CBC, CMP, LDH and OV in 6 months -No further CT imaging unless clinically indicated Portions of this documentation were copied and pasted from previous office visit notes in order to provide a cohesive continuity of the history. The note has been reviewed and edited and updated as necessary. Pancho Godoy MD Cc: Dr. Mary Anne Queen documented in this encounter [facility] 07-19-2021 History of Present illness Narrative Radiology Service Progress Note DATE OF SERVICE: July 19, 2021 TIME: 12:56 PM PATIENT IDENTITY VERIFICATION COMPLETED USING TWO (2) STANDARD IDENTIFIERS: Name and Date of confirmed by patient verbally. FALL SCREENING: Has the patient had 2 falls in the last year or 1 fall with injury or currently using an Ambulatory Assistive Device (Walker, Cane, Wheelchair, Crutches, etc.)? No PATIENT GENDER DATA: Male PATIENT RELEVANT IMPLANT DATA REVIEWED: Yes ALLERGIES: Reviewed and unchanged CONTRAST ALLERGY: NO. EXAM: CT -CONTRAST INDUCED NEPHROPATHY RISK FACTORS: Patient age > 60 years CREATININE: Creatinine Date Value Ref Range Status 07/19/2021 1.08 0.73 - 1.22 mg/dL Final 01/16/2021 1.15 0.73 - 1.22 mg/dL Final 10/11/2020 1.27 (H) 0.73 - 1.22 mg/dL Final Estimated Glomerular Filtration Rate Date Value Ref Range Status 07/19/2021 78 >=60 mL/min/1.73m Final Comment: Estimated Glomerular Filtration Rate (eGFR) is calculated using the 2020 CKD-EPI creatinine equation. This equation utilizes serum creatinine, sex, and age as parameters. The creatinine assay has traceable calibration to isotope dilution-mass spectrometry. Refer to KDIGO guidelines for clinical interpretation. In patients with unstable renal function, e.g. those with acute kidney injury, the eGFR may not accurately reflect actual GFR. eGFR- Date Value Ref Range Status 01/16/2021 >60 Final P.O.C.T. RESULTS: POC done: Yes, See Lab Tab July 19, 2021 TREATMENT: N/A PERIPHERAL IV DATA: Ambulatory: A peripheral IV was started in the Left antecubital site with a Angio cath: 22 gauge. RADIOLOGY DEPARTMENT: CT; Exam(s) Completed: Abdomen/Pelvis SIGNATURE: RT Kin(R) PATIENT NAME: Juan José Valencia DATE: July 19, 2021 TIME: 12:56 PM documented in this encounter [facility] Diagnosis 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 (HCC)- Primary Nodular lymphoma of intra-abdominal lymph nodes [facility] Diagnosis High risk medication use- Primary Encounter for long-term (current) use of other medications Nuclear sclerotic cataract of both eyes Senile nuclear sclerosis Vitreous floaters of both eyes Hyperopia, right Presbyopia [facility] Diagnosis Grade 1 follicular lymphoma of lymph nodes of multiple regions (HCC)- Primary [facility] Diagnosis Grade 1 follicular lymphoma of lymph nodes of multiple regions (HCC)- Primary 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 (HCC) Nodular lymphoma of intra-abdominal lymph nodes [facility] Diagnosis Grade 1 follicular lymphoma of lymph nodes of multiple regions (HCC)- Primary [facility] Diagnosis High risk medication use- Primary Encounter for long-term (current) use of other medications Nuclear sclerotic cataract of both eyes Senile nuclear sclerosis Vitreous floaters of both eyes Hyperopia, right Presbyopia documented in this encounter [facility] Summary Purpose Family History No Family History Records FoundNo Family History Records Found Advance Directives No Advanced Directives Records FoundDocuments on File Type Date Recorded Patient Solution Maker Expl anation Advance Directive(s) 04/29/2019 11:41 AM Advance Directive(s) 05/26/2018 11:39 AM Advance Directive(s) 05/25/2018 11:46 AM Advance Directive(s) 10/30/2015 6:16 AM Documents on File Type Date Recorded Patient Solution Maker Expl anation Advance Directive(s) 04/29/2019 11:41 AM Advance Directive(s) 05/26/2018 11:39 AM Advance Directive(s) 05/25/2018 11:46 AM Advance Directive(s) 10/30/2015 6:16 AM Reason for Referral Specialty Diagnoses / Procedures Referred By Robb diaz Referred To Contact CT IMAGING Diagnoses 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 (HCC) Procedures CT ABD/PEL W IVCON CT ABD & PELVIS W/CONTRAST Pancho Godoy MD [id number] Imaging Referral ID Status Reason Start Date Expiration Date V isits Requested Visits Authorized [id number] Closed Auto-Generate d Referral 07/19/2021 08/18/2021 2 2 Medications Administered Section Inactive Administered Medications - up to 3 most recent administrations Medication Order MAR Action Action Date Dose Rate Site tropicamide 1 % 1 Drop (MYDRIACYL) 1 Drop, BOTH EYES, ONCE, 1 dose, On Thu01/13/22 at 1600, FOR THE EYE Given 01/13/2022 4:00 PM EDT 1 Drop Inactive Administered Medications - up to 3 most recent administrations Medication Order MAR Action Action Date Dose Rate Site tropicamide 1 % 1 Drop (MYDRIACYL) 1 Drop, BOTH EYES, ONCE, 1 dose, On Thu02/02/23 at 1600, FOR THE EYE Given 02/02/2023 4:00 PM EDT 1 Drop Additional Source Comments (unrecognized sect ion and content) No Status Records FoundNo Status Records Found INFORMATION SOURCE (unrecogn ized section and content) DATE CREATED AUTHOR AUTHOR'S NIRU CHARLTON 02/03/2023 [facility] Source Comments (unrecognize d section and content) In the event this informatio n is protected by the Federal Confidentiality of Alcohol and Drug Abuse Patient Records regulations: The Federal rules restrict any use of the information to criminally investigate or prosecute any alcohol or drug abuse patient.[facility] the event this information is protected by the Federal Confidentiality of Alcohol and Drug Abuse Patient Records regulations: The Federal rules restrict any use of the information to criminally investigate or prosecute any alcohol or drug abuse patient.[facility] the event this information is protected by the Federal Confidentiality of Alcohol and Drug Abuse Patient Records regulations: The Federal rules restrict any use of the information to criminally investigate or prosecute any alcohol or drug abuse patient.[facility] the event this information is protected by the Federal Confidentiality of Alcohol and Drug Abuse Patient Records regulations: The Federal rules restrict any use of the information to criminally investigate or prosecute any alcohol or drug abuse patient.[facility] the event this information is protected by the Federal Confidentiality of Alcohol and Drug Abuse Patient Records regulations: The Federal rules restrict any use of the information to criminally investigate or prosecute any alcohol or drug abuse patient.[facility] the event this information is protected by the Federal Confidentiality of Alcohol and Drug Abuse Patient Records regulations: The Federal rules restrict any use of the information to criminally investigate or prosecute any alcohol or drug abuse patient.[facility] the event this information is protected by the Federal Confidentiality of Alcohol and Drug Abuse Patient Records regulations: The Federal rules restrict any use of the information to criminally investigate or prosecute any alcohol or drug abuse patient.[facility] Reason for Visit (unrecogniz ed section and content) Specialty Diagnoses / Procedures Referred By Contac t Referred To Contact CT IMAGING Diagnoses 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 (HCC) Procedures CT ABD/PEL W IVCON CT ABD & PELVIS W/CONTRAST Eric, Lapman, MD [address] [place] [address] Ct Imaging Referral ID Status Reason Start Date Expiration Date V isits Requested Visits Authorized [id number] Closed Auto-Generate d Referral 07/19/2021 08/18/2021 2 2 Reason Comments Established Patient Reason Comments Plaquenil Check Reason Comments Plaquenil Check Cataract Evaluation Care Teams (unrecognized sec tion and content) Manager Regional Sales Relationship Specialty Start Date End Date Mary Anne Queen MD [address] [place] [address] PCP - General Family Practice 05/26/18 Rimma Peralta [address] [facility] [place] [address] Specialty Ui Software Engineer Rheumatology 05/24/18 Callie Hannon LISW Field Administrative Assistant 06/16/18 Manager Regional Sales Relationship Specialty Start Date End Date Mary Anne Queen MD [address] [place] [address] PCP - General Family Medicine 05/26/18 Rimma Peralta [address] [place] [address] Specialty Ui Software Engineer Rheumatology 05/24/18 Callie Hannon RN Field Administrative Assistant 06/16/18 Manager Regional Sales Relationship Specialty Start Date End Date Mary Anne Queen MD [address] [facility] [place] [address] PCP - General Family Medicine 05/26/18 Rimma Peralta [address] [facility] [place] [address] Specialty Ui Software Engineer Rheumatology 05/24/18 Callie Hannon RN Field Administrative Assistant 06/16/18 Manager Regional Sales Relationship Specialty Start Date End Date Mary Anne Queen MD [address] [place] [address] PCP - General Family Medicine 05/26/18 Rimma Peralta [address] [place] [address] Specialty Ui Software Engineer Rheumatology 05/24/18 Callie Hannon RN Field Administrative Assistant 06/16/18 Manager Regional Sales Relationship Specialty Start Date End Date Mary Anne Queen MD [address] [place] [address] PCP - General Family Medicine 05/26/18 Rimma Peralta [address] [place] [address] Specialty Ui Software Engineer Rheumatology 05/24/18 Callie Hannon RN Field Administrative Assistant 06/16/18 Manager Regional Sales Relationship Specialty Start Date End Date Mary Anne Queen MD [address] [place] [address] PCP - General Family Medicine 05/26/18 Rimma Peralta [address] [place] [address] Specialty Ui Software Engineer Rheumatology 05/24/18 Callie Hannon RN Field Administrative Assistant 06/16/18 FOR RECORDS PERTAINING TO PATIENTS WHO ARE OR HAVE BEEN ENROLLED IN A CHEMICAL DEPENDENCY/SUBSTANCEABUSE PROGRAM, SOME INFORMATION MAY BE OMITTED. This clinical summary was aggregated from multiple sources. Caution should be exercised in using it in the provision of clinical care. This summary normalizes information from multiple sources, and as a consequence, information in this document may materially change the coding, format and clinical context of patient data. In addition, data may be omitted in some cases. CLINICAL DECISIONS SHOULD BE BASED ON THE PRIMARY CLINICAL RECORDS. [facility] [facility] [email or web address] [facility]. provides no warranty or guarantee of the accuracy or completeness of information in this document.
--- NOTE | 2023-05-26 10:00 | COLBX_PTH ---
PATHOLOGY RESULTS PATIENT: CAROLYN GOVEA LOC: EN U#:[id number] AGE/SX: 63/M ROOM: RE05/26/[address]: Dr. Diallo Baires MD : 1960 BED: DIS: 05/26/2023 SPEC #: [id number] RECD: 05/26/23 12:59 STATUS: OTTO SMITH #: [id number] BRITTANEY: 05/26/23 10:[address]: Diallo Baires DEPT: SURGICAL PATHOLOGY RECD BY: Basia Tang ENTERED: 05/26/23 13:00 SP TYPE: COLON BX OTHR DR: Dr. Estrada Queen MD Tissues: Rectum, NOS Procedures: Surgery Specimen Level IV HEADER OPERATION: Colonoscopy PRE-OP DIAGNOSIS: History of colon polyps TISSUE SUBMITTED: Rectum polyp MICROSCOPIC DIAGNOSIS Rectal polyp, biopsy: Hyperplastic polyp. AM:jovanny 05/27/2023 MICROSCOPIC DESCRIPTION Slides are reviewed. GROSS DESCRIPTION Received in fixative is one container labeled with the patient's name and designated rectum polyp. The specimen consists of one irregular fragment of light spivey soft tissue that measures 0.2 x 0.2 x 0.1 cm. The specimen is totally submitted in one cassette. / SJ:jovanny 05/26/2023 TC:5 CPT: 04106
--- NOTE | 2023-05-26 10:45 | HP.PCM_ITS ---
History and Physical Date of Admission: 05/26/23 Intake Vital Signs 11/07/2310:06 04/21/2409:02 Height 6 ft 2 in 6 ft 2 in Weight: 257 lb 6 oz BMI 33.0 BP 124/84 H Blood Pressure Location Rt brachial Position Sitting Respiration 17 Pulse 64 Pulse Source Monitor Temp 97.6 F L Temp Source Temporal Pulse Oximetry (%) 98 Oxygen Delivery Method room air Intake Visit Reasons: 5 YR RECALL- SCOPE Chief Complaint: 5 yr recall-scope Chemical Equipment Controller Required: No Is patient in pain?: No Allergies No Known Allergies Allergy (Verified 04/21/23 10:03) Medications atenolol 25 mg tablet 25 mg PO DAILY heart 05/06/18 [History Confirmed 04/21/23] esomeprazole magnesium 40 mg capsule,delayed release (Nexium) 40 mg PO DAILY PRN PRN acid 05/12/18 [History Confirmed 04/21/23] amlodipine 5 mg tablet 5 mg PO DAILY bp 03/22/20 [History Confirmed 04/21/23] hydroxychloroquine 200 mg tablet (Plaquenil) 200 mg PO BID 06/11/21 [History Confirmed 04/21/23] aspirin 81 mg tablet,delayed release 81 mg PO DAILY 10/30/22 [History Confirmed 04/21/23] chlorthalidone 25 mg tablet 12.5 mg PO DAILY fluid 10/31/22 [History Confirmed 04/21/23] potassium chloride 20 mEq tablet,extended release 20 meq PO DAILY 11/07/22 [History Confirmed 04/21/23] [facility] Medical History Abdominal pain Atrial flutter B-cell lymphoma Back pain Bronchiectasis Cancer Cardiology follow-up encounter Centriacinar emphysema COVID CPAP (continuous positive airway pressure) dependence Cyst of right kidney Epigastric pain Fatigue Fatty liver 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 Former smoker Former tobacco use Gastric reflux GERD (gastroesophageal reflux disease) History of echocardiogram History of pain when walking History of steroid therapy HTN (hypertension) Hypersomnia Hypertension Hypertension, accelerated Hypokalemia Hypoxia Left inguinal hernia Leg cramps Loss of hearing Mesenteric mass NAFLD (nonalcoholic fatty liver disease) Obesity HEIDE (obstructive sleep apnea) Pneumonia due to COVID-19 virus Presence of cardiac pacemaker Rheumatoid arthritis Right groin pain Right lower quadrant pain Smoking greater than 20 pack years Tachycardia Wears glasses Surgical History History of cardiac catheterization History of esophagogastroduodenoscopy (EGD) History of left inguinal hernia repair (~03/2022) history of mesenteric biopsy Hx of cholecystectomy Hx of colonoscopy Hx of inguinal hernia repair Family History Mother CVA (cerebral vascular accident) Hypertension CAD (coronary artery disease) CancerFather CAD (coronary artery disease) Cancer lungOther Diabetes Social History (Updated 11/07/22 @ 13:30 by Alva Alvraez) household members: spouse Smoking Status: Former smoker how long ago did patient quit smokin alcohol intake: never substance use type: does not use caffeine: Yes (About 1 time per week) HPI HPI HPI: Patient is a 63-year-old male here for surveillance colonoscopy. He last anoscopy was 5 years ago and a tubular adenoma was removed. He denies any abdominal pain or blood in the stool or any other abdominal issues since his last colonoscopy. ROS General General: No weight change, appetite, fatigue, colon cancer, breast cancer or weakness HEENT HEENT: No difficulty swallowing, eye injury, eye surgery, swollen glands or hoar seness Endo Endocrine: No thyroid disease, diabetes mellitus, thyroid cancer, Hair loss, heat intolerance or cold intolerance Skin Skin: No rash or changing moles Breast Breast: No left breast lump, right breast lump, nipple discharge, breast pain, abnormal mammogram, abnormal US or breast enlargement Musc Musculoskeletal: Yes arthritis and rheumatoid arthritis; No back problems, gout or joint pain Cardio Cardiovascular: Yes high blood pressure; No murmur, pacemaker, heart disease, atrial fibrillation, heart attack, heart stent, palpitations, shortness of breat with exertion or chest pain Psych Psychiatric: No depression, anxiety or hearing voices Resp Respiratory: No shortness of breath, Yes sleep apnea, Yes cough, No COPD, No asthma, No emphysema and No wheezing Gastro Gastrointestinal: Yes abdominal pain, No nausea or vomiting, No diarrhea, No constipation, No blood in stool, Yes acid reflux, Yes hemorrhoids, No ulcers, No gallbladder problem and No black,tarry stools Patrick Hematologic: No blood thinners, No blood disorders, No bleeding, No anemia and No blood clots Neuro Neurologic: No system reviewed and no additional complaints, except as documented, No as per HPI, No abnormal gait, No abnormal hearing, No abnormal movements, No abnormal speech, No behavioral changes, No burning sensations, No confusion, No convulsions, No disequilibrium, No dizziness, No localized weakness, No frequent falls, No headache(s), No lack of coordination, No loss of vision, No memory loss, No numbness, No other visual disturbances, No radicular pain, No restless legs, No sensory deficit, No syncope, No tingling, No tremor(s), No weakness and No other Exam Const General: cooperative Orientation: alert and oriented x3 HENMT Head: normal to inspection Neck Neck: normal visual inspection and full ROM Chest Chest palpation & inspection: normal inspection of the chest Resp Effort & Inspection: normal respiratory effort Auscultation: clear to auscultation bilaterally Cardio Rate: regular rate Rhythm: regular rhythm GI Inspection: non-distended Palpation: soft and nontender Skin General: no rashes or lesions noted Neuro General: patient alert and patient oriented x3 Extrem General: full ROM Psych Appearance: grossly normal Mental Status: mental status grossly normal Assessment and Plan Assessment and Plan (1) History of colon polyps: Status: Acute Plan: I explained endoscopy in detail to the patient. I explained the risks including but not limited to stroke or heart attack with anesthesia, perforation of the GI tract, bleeding, infection. I explained that any of these could necessitate further emergency surgery. The patient understands and all questions were answered sufficiently. The patient wishes to proceed with procedure. Diallo Baires MD Pager: [facility] [address] [place] [address], [address] [place] [address] Office: I have examined the patient and the H&P has been reviewed. There are no clinical changes since date of exam.
--- NOTE | 2023-05-26 11:17 | OP.COLON_ITS ---
Patient Name: Juan José Valencia Procedure Date: 05/26/2023 10:49 AM Date of : 1960 Age: 63 Procedure: Colonoscopy Indications: High risk colon cancer surveillance: Personal history of colonic polyps Providers: Diallo Baires MD Referring MD: Diallo Baires MD Medicines: Monitored Anesthesia Care Patient Profile: This is a 63 year old male. Refer to note in patient chart for documentation of history and physical. Last Colonoscopy: 5 years ago. Complications: No immediate complications. Procedure: Pre-Anesthesia Assessment: - Prior to the procedure, a History and Physical was performed, and patient medications and allergies were reviewed. The patient's tolerance of previous anesthesia was also reviewed. The risks and benefits of the procedure and the sedation options and risks were discussed with the patient. All questions were answered, and informed consent was obtained. Prior Anticoagulants: The patient has taken no anticoagulant or antiplatelet agents except for aspirin. After reviewing the risks and benefits, the patient was deemed in satisfactory condition to undergo the procedure. After I obtained informed consent, the scope was passed under direct vision. Throughout the procedure, the patient's blood pressure, pulse, and oxygen saturations were monitored continuously. The Colonoscope was introduced through the anus and advanced to the cecum, identified by appendiceal orifice and ileocecal valve. The colonoscopy was performed without difficulty. The patient tolerated the procedure well. The quality of the bowel preparation was good. The ileocecal valve, appendiceal orifice, and rectum were photographed. Scope In: 10:54:50 AM Scope Withdrawal Time 0 hours 7 minutes 53 seconds Scope Out: 11:12:39 AM Total Procedure Duration Time 0 hours 17 minutes 49 seconds Findings: A small polyp was found in the rectum. The polyp was removed with a hot snare. Resection and retrieval were complete. The entire examined colon appeared normal on direct and retroflexion views. Impression: - One small polyp in the rectum, removed with a hot snare. Resected and retrieved. - The entire examined colon is normal on direct and retroflexion views. Recommendation: - Discharge patient to home. - Resume previous diet. - Continue present medications. - Await pathology results. - Repeat colonoscopy in 5 years for surveillance based on pathology results. Procedure Code(s): --- Professional --- 95929, Colonoscopy, flexible; with removal of tumor(s), polyp(s), or other lesion(s) by snare technique Diagnosis Code(s): --- Professional --- Z86.010, Personal history of colonic polyps D12.8, Benign neoplasm of rectum CPT copyright 2021 [employer]. All rights reserved. The codes documented in this report are preliminary and upon organic gardening teacher review may be revised to meet current compliance requirements. Diallo Baires MD 05/26/2023 11:17:10 AM This report has been signed electronically. Number of Addenda: 0 Note Initiated On: 05/26/2023 10:49 AM
--- NOTE | 2023-05-26 11:17 | OP.CCLET_ITS ---
05/26/2023 Estrada Queen [address] [place] [address] Re : Colonoscopy procedure for Juan José Valencia Dear Dr. Queen This procedure was performed on Friday, May 26, 2023. My impressions and recommendations are as follows: Impressions : - One small polyp in the rectum, removed with a hot snare. Resected and retrieved. - The entire examined colon is normal on direct and retroflexion views. Recommendations : - Discharge patient to home. - Resume previous diet. - Continue present medications. - Await pathology results. - Repeat colonoscopy in 5 years for surveillance based on pathology results. My findings are described in the full procedure note, which is enclosed. If I can be of further assistance, please feel free to contact me at Doctor phone number(s): , Work: . Sincerely, Diallo Baires MD 05/26/2023 11:17:10 AM This report has been signed electronically.
== END 2023-05-26 12:01 | disposition home or self-care (01) ==
LOC: EN 08:47 → AC 08:48
PROVIDERS: PCP Family Medicine; Referring Provider Surgery; Visit Provider Surgery
PROC: 0DJD8ZZ Inspection of Lower Intestinal Tract, Via Natural or Artificial Opening Endoscopic (ICD-10-PCS; CPT 45378; principal; 2023-05-26 09:55)
DX: Z12.11 Encounter for screening for malignant neoplasm of colon (principal); I10 Essential (primary) hypertension; Z68.33 Body mass index [BMI] 33.0-33.9, adult; Z90.49 Acquired absence of other specified parts of digestive tract; Z87.891 Personal history of nicotine dependence; E66.9 Obesity, unspecified; Z86.010 Personal history of colon polyps; Z86.16 Personal history of COVID-19; K21.9 Gastro-esophageal reflux disease without esophagitis; G47.33 Obstructive sleep apnea (adult) (pediatric); Z99.89 Dependence on other enabling machines and devices; Z95.0 Presence of cardiac pacemaker; D12.8 Benign neoplasm of rectum
CPT/HCPCS: 45385; 88305; J7120; J2405

== ENCOUNTER → 2023-11-17 | Outpatient (CLI) | payer OTHER, SELFPAY ==
--- NOTE | 2023-11-17 07:52 | CT_ITS ---
STUDY: LOW DOSE CT LUNG CANCER SCREENING REASON FOR EXAM: Male, 63 years old. Smoker quit 2012. The patient smoked 1 pack per day for 30 years. RADIATION DOSAGE (If Supplied By Facility): CTDIvol = ( 3.18 ) mGy, DLP = ( 103.64 ) mGycm TECHNIQUE: No contrast was administered. Low dose technique was utilized (average mAS-38 and kVp 120). 1.25 mm axial source images with a slice interval of 1.25-mm were reconstructed in lung windows. 2.5 mm axial source images with a slice interval of 2.5-mm were reconstructed in lung windows. 5.0 mm axial source images with a slice interval of 5.0-mm were reconstructed in soft tissue windows. COMPARISON: Comparison is made with prior study dated May 15, 2020. NODULES: No suspicious nodules seen. Emphysema: Hyperinflation. Emphysematous changes with scarring at the lung bases. Endobronchial lesion: None Aorta: Atherosclerotic plaque formation of the aortic arch CORONARY ARTERIES: Coronary artery calcification is seen. Heart: The left-sided dual chamber pacemaker seen. Pulmonary artery: Unremarkable Mediastinal nodes: Unremarkable Other chest and abdominal findings: CT/Low Dose CT Lung Screening IMPRESSION: Lung-RADS category 1 - Continue annual screening with LDCT in 12 months. IMPORTANT NOTES FOR USE: ACR Lung-RADS Version 1.1 Assessment Categories Release Date: 2018 Category: Coded 0-4 bases on nodule(s) with highest degree of suspicion. Negative screen is defined as categories 1 and 2; a positive screen is defined as categories 3 and 4. Category 3 and 4A nodules that are unchanged on interval CT should be coded as category 2, and individuals returned to screening in 12 months. Category 4X: Category 3 or 4 nodules with additional imaging findings that increase the suspicion of lung cancer, such as spiculation, GGN that doubles in size in 1 year, enlarged lymph notes, etc. Category Modifiers: S (significant finding unrelated to lung cancer) Electronically Signed: Han Rosado MD at 14:48 EDT ,
== END | disposition home or self-care (01) ==
LOC: CT 07:52
PROVIDERS: PCP Family Medicine; Referring Provider Nurse Practitioner Acute Care; Visit Provider Nurse Practitioner Acute Care
DX: Z12.2 Encounter for screening for malignant neoplasm of respiratory organs (principal); Z87.891 Personal history of nicotine dependence
CPT/HCPCS: 71271

== ENCOUNTER → 2024-12-13 | Outpatient (CLI) | payer MEDICARE, SELFPAY ==
--- NOTE | 2024-12-13 07:46 | CT_ITS ---
PROCEDURE: LOW DOSE CT LUNG SCREENING 12/13/2024 REASON FOR EXAM: SMOKING Former smoker. Patient has smoked 1 pack per day for 37 years. History of lymphoma and chemotherapy. TECHNIQUE: Procedure Code: [id number] Modality: CT Procedure: LOW DOSE CT LUNG SCREENING Coronal and Sagittal reconstruction series were provided. One or more dose reduction techniques were used (e.g., Automated exposure control, adjustment of the mA and/or kV according to patient size, use of iterative reconstruction technique). REFERENCE LINK: [employer] Lung-RADS RADIATION DOSE SUMMARY: CTDlvol: 4.02 mGy DLP: 138.43 mGycm COMPARISON: Prior study dated November 17, 2023. FINDINGS: PULMONARY NODULES: (Only nodules >3mm are reported) Nodules described below are on series 1 unless otherwise specified. Pulmonary Nodules: No suspicious nodules are seen. Hardware:Left-sided dual-chamber pacemaker. Lymph Nodes:Small benign-appearing mediastinal lymph nodes. Heart and Vasculature:The heart is nonenlarged.Atherosclerotic plaque formation of the aortic arch. Coronary Artery Calcifications: Present Lungs and Airways: Hyperinflation. Stable mild scarring at the lung apices as well as in the posterior medial segments of both lower lobes. Pleura:No pleural effusions. Upper Abdomen:Unremarkable Bones:Degenerative changes of the thoracic spine. CT/Low Dose CT Lung Screening IMPRESSION: Stable examination. Coronary artery calcification (CAC) is is present Lung-RADS Category: 2 BENIGN (BASED ON IMAGING FEATURES OR INDOLENT BEHAVIOR). RECOMMEND 12-MONTH SCREENING LDCT. Other Significant Findings: Reading Location: [facility]
== END | disposition home or self-care (01) ==
PROVIDERS: PCP Family Medicine; Referring Provider Nurse Practitioner Acute Care; Visit Provider Nurse Practitioner Acute Care
DX: F17.210 Nicotine dependence, cigarettes, uncomplicated (principal); F17.290 Nicotine dependence, other tobacco product, uncomplicated
CPT/HCPCS: 71271